=== PATIENT | female | born 1970 | race Caucasian/White ===

== ENCOUNTER 2017-04-24 09:40 | Emergency (ER) | payer MEDICAID ==
--- NOTE | 2017-04-24 10:28 | UC ---
UC General HPI - HPI Summary HPI Summary: complaint of having intermittent right" lung pain" for the last 2 months sometimes at night she feels pressure and it hurts to breathe in sometimes gets a cough- denies wheezing feels some pressure in her lung that decreases during the day lasts for several days then goes away fever of 102 last week for 2 days smoker 1PPD denies chest pain, dizziness, diaphoresis - History of Current Complaint Hx Obtained From: Patient <Lisa Gottlieb - Last Filed: 04/24/17 16:03> <Tessa Epstein - Last Filed: 04/25/17 10:22> - History of Current Complaint Chief Complaint: UCRespiratory Stated Complaint: LUNG PAIN-BEEN ONGOING Time Seen by Provider: 04/24/17 10:15 - Allergy/Home Medications Allergies/Adverse Reactions: Allergies Allergy/AdvReac Type Severity Reaction Status Date / Time CI Pigment Blue 63 Allergy SEVERE Verified 04/24/17 09:52 [From Cymbalta] SUICIDAL Duloxetine [From Cymbalta] Allergy SEVERE Verified 04/24/17 09:52 SUICIDAL Pregabalin [From Lyrica] Allergy FACIAL Verified 04/24/17 09:52 SWELLING Valproic Acid [From Depakote] Allergy CALF AREA Verified 04/24/17 09:52 SWELL & PURPLISH COLOR Home Medications: Home Medications Methadone TAB* [Dolophine TAB*] 108 mg PO DAILY 04/24/17 [History Confirmed ] PMH/Surg Hx/FS Hx/Imm Hx Previously Healthy: Yes Cardiovascular History: Hypertension Neurological History: Seizures Psychological History: Anxiety, Depression - Surgical History Surgical History: Yes Surgery Procedure, Year, and Place: C SECTION - X2, TUBAL LIGATION, GALL BLADDER 2012 - Family History Known Family History: Positive: Other - Bipolar disorder, alcoholism Negative: Cardiac Disease, Hypertension, Diabetes - Social History Occupation: Employed Full-time Lives: With Family Alcohol Use: None Substance Use Type: Heroin Substance Use Comment - Amount & Last Used: 02/11/14 Smoking Status (MU): Heavy Every Day Tobacco Smoker Type: Cigarettes Amount Used/How Often: 1 PPD Length of Time of Smoking/Using Tobacco: 32 years Have You Smoked in the Last Year: Yes Household Exposure Type: Cigarettes Cessation Counseling: Patient Advised to Stop - Immunization History Most Recent Influenza Vaccination: unable to recall Most Recent Tetanus Shot: unable to recall Most Recent Pneumonia Vaccination: N/A <BullLisa - Last Filed: 04/24/17 16:03> Review of Systems Constitutional: Fever, Chills Skin: Negative Eyes: Negative ENT: Negative Respiratory: Cough Cardiovascular: Negative Gastrointestinal: Negative Genitourinary: Negative Motor: Negative Neurovascular: Negative Musculoskeletal: Negative Neurological: Negative Psychological: Negative All Other Systems Reviewed And Are Negative: Yes <Lisa Gottlieb - Last Filed: 04/24/17 16:03> Physical Exam Triage Information Reviewed: Yes Appearance: No Pain Distress, Well-Nourished Vital Signs: Initial Vital Signs Temp 98.2 F 04/24/17 09:53 Pulse 102 04/24/17 09:53 Resp 18 04/24/17 09:53 BP 137/101 04/24/17 09:53 Pulse Ox 99 04/24/17 09:53 Vital Signs Reviewed: Yes Eyes: Positive: Conjunctiva Clear ENT: Positive: Pharynx normal, TMs normal Neck: Positive: No Lymphadenopathy Respiratory: Positive: Lungs clear, Normal breath sounds, No respiratory distress, No accessory muscle use, Respiratory distress Cardiovascular: Positive: RRR, No Murmur, Pulses Normal, Brisk Capillary Refill Abdomen Description: Positive: Nontender, No Organomegaly, Soft. Negative: CVA Tenderness (R), CVA Tenderness (L), Distended, Guarding Bowel Sounds: Positive: Present Musculoskeletal: Positive: No Edema, Other: - no chest wall tenderness Neurological Exam: Normal Psychological Exam: Normal Skin Exam: Normal <Lisa Gottlieb - Last Filed: 04/24/17 16:03> Vital Signs: Initial Vital Signs Temp 98.2 F 04/24/17 09:53 Pulse 102 04/24/17 09:53 Resp 18 04/24/17 09:53 BP 137/101 04/24/17 09:53 Pulse Ox 99 04/24/17 09:53 <Tessa Epstein - Last Filed: 04/25/17 10:22> Course/Dx - Course Course Of Treatment: exam completed. will order chest x-ray d/t cough and fever last week, smoker 1PPD- chest xray negative for acute disease. discussed smoking cessation. no risks factors for PE. will followup with PCP- if symptoms return/worsen seek care in the ED pr call 911 - Differential Dx - Multi-Symptom Differential Diagnoses: Other - pneumonia, pleural effusion, pleurisy Provider Diagnoses: right sided chest pain, elevated blood pressure <Lisa Gottlieb - Last Filed: 04/24/17 16:03> Discharge <Lisa Gottlieb - Last Filed: 04/24/17 16:03> <Tessa Epstein - Last Filed: 04/25/17 10:22> - Discharge Plan Condition: Stable Disposition: HOME Prescriptions: Ibuprofen TAB* [Motrin TAB* 800 MG] 800 mg PO Q8H PRN #30 tab PRN Reason: Pain Patient Education Materials: How to Stop Smoking (ED), Pleurisy (ED) Referrals: Jamal Schultz MD [Primary Care Provider] - Additional Instructions: Please start ibuprofen as directed Increase fluids and rest Please review your discharge instructions. If your symptoms do not improve please call your primary care provider or return to urgent care Your blood pressure is elevated. Please contact your primary care provider within 1 -4 weeks for further evaluation. Attestation Statement User Type: Provider - I was available for consult. This patient was seen by the EPIFANIO. The patient was not presented to, seen by, or examined by me. -Geni <Tessa Epstein - Last Filed: 04/25/17 10:22>
--- NOTE | 2017-04-24 10:54 | RAD ---
Indication: Right-sided chest pain. 2 views of the chest including dual energy PA views demonstrate no mediastinal shift. Heart is normal size and configuration. Lung nagel are clear. IMPRESSION: No active cardiopulmonary disease is noted.
[2017-04-24 11:26] VITALS: BP 117/83
== END 2017-04-24 11:15 | disposition home or self-care (01) ==
LOC: UCEAST 09:40
DX: R07.9 Chest pain, unspecified (principal); R03.0 Elevated blood-pressure reading, without diagnosis of hypertension; Z72.0 Tobacco use
CPT/HCPCS: 71020; 99212; G0463

== ENCOUNTER 2017-04-29 13:23 | Emergency (ER) | payer MEDICAID, OTHER ==
[2017-04-29] MEDS ORDERED: Ondansetron INJ* 2 MG/ML VIAL IV ONE (13:32)
[2017-04-29] MEDS ORDERED: NS 0.9% 1000 ML* 1,000 ML IV ONE (13:32)
[2017-04-29 14:33] LABS: Hematocrit 42 % (35-47); Hemoglobin 14.2 g/dl (12.0-16.0); Mean Corpuscular HGB Conc 34 g/dl (31-36); Mean Corpuscular Hemoglobin 31 pg (27-31); Mean Corpuscular Volume 91 fL (80-97); Mean Platelet Volume 8 um3 (7.4-10.4); Red Blood Count 4.63 10^6/ul (4.0-5.4); Red Cell Distribution Width 14 % (10.5-15)
[2017-04-29 14:45] LABS: ALT 15 U/L (7-52); AST 18 U/L (13-39); Albumin 3.4 g/dL (3.2-5.2); Alkaline Phosphatase 65 U/L (34-104); Anion Gap 5 mmol/L (2-11); BUN/Creatinine Ratio 9.1 (8-20); Blood Urea Nitrogen 8 mg/dL (6-24); CO2 Carbon Dioxide 24 mmol/L (22-32); Calcium 8.9 mg/dL (8.6-10.3); Chloride 106 mmol/L (101-111); EGFR Non-African American 69.2 (>60); Globulin 3.7 g/dL (2-4); Glucose 103 mg/dL (70-100); Potassium 3.8 mmol/L (3.5-5.0); Sodium 135 mmol/L (133-145); Total Protein 7.1 g/dL (6.4-8.9)
[2017-04-29 15:00] LABS: Acetaminophen < 15 mcg/mL; Alcohol < 10 mg/dL (<10); Salicylate < 2.50 mg/dL (<30)
[2017-04-29 15:10] LABS: TSH (Thyroid Stimulating Horm) 0.91 mcIU/mL (0.34-5.60)
[2017-04-29 15:59] LABS: Urine Bacteria Absent (Absent); Urine Bilirubin Negative (Negative); Urine Glucose Negative (Negative); Urine Nitrite Negative (Negative)
[2017-04-29 16:14] LABS: Benzodiazepine Urine Screen None Detected (None Detect)
[2017-04-29 17:01] VITALS: BP 138/80
--- NOTE | 2017-04-29 18:22 | ED ---
Eren Owens Auryana, scribed for Shelia Balbuena MD on 04/29/17 at 1501 . Substance Abuse/Use - HPI Summary HPI Summary: 46 year old female BIBElias s/p substance abuse. Patient reports that she was using what she believed was heroin with her friend, and states that she was feeling "confused" and "not feeling right" after injection. She reports that she also became worried about her friends well being - states "wanted to save her". Patient does admit to being more sad and depressed recently - she denies any SI or suicide attempt. MANUFACTURING MACHINE OPERATOR given Narcan - reports that she became sick and vomited because of it. PMHx is significant for depression and IVDA - methadone Tx. - History Of Current Complaint Chief Complaint: EDOverdose Stated Complaint: POSS OVERDOSE Time Seen by Provider: 04/29/17 13:29 Hx Last Menstrual Period: 04/13/17 Onset/Duration of Drug/ETOH Abuse: Minutes Ingestion History: Type/Name Of Drug - possibly heroin - but unsure, Amount Ingested - unk, Approximate Time Of Ingestion - unk Overdose Characteristics: IV Timing Of Abuse: Binge Use Severity Initially: Moderate Severity Currently: Moderate Character: Depressed, Other - "confused and not feeling right" Associated Signs And Symptoms: Vomiting, Other: - "confusion and not feeling right" Related Hx: Prior Drug Abuse Counseling/Admission - on methadone tx - Allergies/Home Medications Allergies/Adverse Reactions: Allergies Allergy/AdvReac Type Severity Reaction Status Date / Time CI Pigment Blue 63 Allergy SEVERE Verified 04/24/17 09:52 [From Cymbalta] SUICIDAL Duloxetine [From Cymbalta] Allergy SEVERE Verified 04/24/17 09:52 SUICIDAL Pregabalin [From Lyrica] Allergy FACIAL Verified 04/24/17 09:52 SWELLING Valproic Acid [From Depakote] Allergy CALF AREA Verified 04/24/17 09:52 SWELL & PURPLISH COLOR kaleb Allergy Difficulty Uncoded 04/29/17 16:50 Breathing PMH/Surg Hx/FS Hx/Imm Hx Endocrine/Hematology History: Denies: Hx Diabetes Cardiovascular History: Denies: Hx Hypertension, Hx Pacemaker/ICD Respiratory History: Denies: Hx Asthma History: Denies: Hx Dialysis, Hx Renal Disease Sensory History: Denies: Hx Hearing Aid Psychiatric History: Reports: Hx Eating Disorder - "not anymore", Hx Substance Abuse Denies: Hx Panic Disorder, Hx of Violent Episodes Against Others - Surgical History Surgery Procedure, Year, and Place: C SECTION - X2, TUBAL LIGATION, GALL BLADDER 2012 Infectious Disease History: Yes Infectious Disease History: Reports: Hx Hepatitis - HEP C, Hx of Known/ Suspected MRSA - nose 2009 Denies: Hx Clostridium Difficile, Hx Human Immunodeficiency Virus (HIV), Hx Shingles, Hx Tuberculosis, Hx Known/Suspected VRE, 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, History Other Infectious Disease, Traveled Outside the [place] in Last 30 Days - Family History Known Family History: Positive: Other - Bipolar disorder, alcoholism Negative: Cardiac Disease, Hypertension, Diabetes - Social History Alcohol Use: None Hx Substance Use: Yes Substance Use Type: Reports: Heroin Substance Use Comment - Amount & Last Used: 04/29/17 Hx Tobacco Use: Yes Smoking Status (MU): Heavy Every Day Tobacco Smoker Type: Cigarettes Amount Used/How Often: 1 PPD Length of Time of Smoking/Using Tobacco: 32 years Have You Smoked in the Last Year: Yes Review of Systems Positive: Other - reports "confused and not feeling right". Negative: Fever Eyes: Negative ENT: Negative Cardiovascular: Negative Respiratory: Negative Positive: Vomiting - x1 Genitourinary: Negative Musculoskeletal: Negative Skin: Negative Neurological: Negative Positive: Depressed All Other Systems Reviewed And Are Negative: Yes Physical Exam - Summary Physical Exam Summary: General: Well appearing, no pain distress. Patient is a little sleepy and has vomit on her clothing. Skin: Warm, Skin Color Reflects Adequate Perfusion, Dry Eyes: EOMI, GITA ENT: Pharynx normal, TMs normal Neck: Supple, nontender Respiratory: CTA, breath sounds present, no rhonchi, no wheezes, no rales Cardiovascular: RRR, no murmur, no rub, no gallop Abdomen: Soft, nontender, Non-distended, no guarding, no rebound Bowel: Present Musculoskeletal: CAROLYNE, No edema Neuro: Sensory/motor intact, A&Ox3, CN intact 2-12 Psych: Affect/mood appropriate. Triage Information Reviewed: Yes Vital Signs On Initial Exam: Initial Vitals Temp Pulse Resp BP Pulse Ox 97.9 F 92 16 116/64 96 04/29/17 13:39 04/29/17 13:39 04/29/17 13:39 04/29/17 13:39 04/29/17 13:39 Vital Signs Reviewed: Yes - [place] Coma Scale Coma Scale Total: 15 Diagnostics - Vital Signs Vital Signs Temp Pulse Resp BP Pulse Ox 04/29/17 14:00 82 14 117/64 95 04/29/17 13:46 97.3 F 85 16 116/64 96 04/29/17 13:45 93 18 96 04/29/17 13:44 116/64 04/29/17 13:39 97.9 F 92 16 116/64 96 - Laboratory Lab Results: Lab Results 04/29/17 04/29/17 Range/Units 14:15 14:15 WBC 11.0 H (3.5-10.8) 10^3/ul RBC 4.63 (4.0-5.4) 10^6/ul Hgb 14.2 (12.0-16.0) g/dl Hct 42 (35-47) % MCV 91 (80-97) fL MCH 31 (27-31) pg MCHC 34 (31-36) g/dl RDW 14 (10.5-15) % Plt Count 307 (150-450) 10^3/ul MPV 8 (7.4-10.4) um3 Neut % (Auto) 82.8 (38-83) % Lymph % (Auto) 8.3 L (25-47) % [place] % (Auto) 7.0 (1-9) % Eos % (Auto) 1.2 (0-6) % Baso % (Auto) 0.7 (0-2) % Absolute Neuts (auto) 9.1 H (1.5-7.7) 10^3/ul Absolute Lymphs (auto) 0.9 L (1.0-4.8) 10^3/ul Absolute Monos (auto) 0.8 (0-0.8) 10^3/ul Absolute Eos (auto) 0.1 (0-0.6) 10^3/ul Absolute Basos (auto) 0.1 (0-0.2) 10^3/ul Absolute Nucleated RBC 0 10^3/ul Nucleated RBC % 0 Sodium 135 (133-145) mmol/L Potassium 3.8 (3.5-5.0) mmol/L Chloride 106 (101-111) mmol/L Carbon Dioxide 24 (22-32) mmol/L Anion Gap 5 (2-11) mmol/L BUN 8 (6-24) mg/dL Creatinine 0.88 (0.51-0.95) mg/dL Est GFR ( Amer) 89.0 (>60) Est GFR (Non-Af Amer) 69.2 (>60) BUN/Creatinine Ratio 9.1 (8-20) Glucose 103 H (70-100) mg/dL Calcium 8.9 (8.6-10.3) mg/dL Total Bilirubin 0.20 (0.2-1.0) mg/dL AST 18 (13-39) U/L ALT 15 (7-52) U/L Alkaline Phosphatase 65 (34-104) U/L Total Protein 7.1 (6.4-8.9) g/dL Albumin 3.4 (3.2-5.2) g/dL Globulin 3.7 (2-4) g/dL Albumin/Globulin Ratio 0.9 L (1-3) TSH Pending Salicylates Pending Acetaminophen Pending Serum Alcohol Pending Result Diagrams: 04/29/17 14:15 04/29/17 14:15 Lab Statement: Any lab studies that have been ordered have been reviewed, and results considered in the medical decision making process. - EKG 14:07 EKG Interpretation: NSR @ 79 bpm Re-Evaluation - Re-Evaluation First Eval Re-Evaluation Time: 15:39 - patient is sleeping. Comment: Patient told nurse that today is the anniversary of her brothers . Course/Dx - Diagnoses Provider Diagnoses: Drug overdose - Physician Notifications Patient Is Medically Stable For: Psych Evaluation - MEDICALLY CLEAR AT 16:19 Discharge - Discharge Plan Condition: Stable Disposition: HOME Patient Education Materials: Polysubstance Abuse (ED) Referrals: No Primary Care Phys,NOPCP [Primary Care Provider] - The documentation as recorded by the Eren caal Auryana accurately reflects the service I personally performed and the decisions made by me, Shelia Balbuena MD.
== END 2017-04-29 17:50 | disposition home or self-care (01) ==
LOC: ED 13:23
DX: T65.91XA Toxic effect of unspecified substance, accidental (unintentional), initial encounter (principal); X58.XXXA Exposure to other specified factors, initial encounter; F32.9 Major depressive disorder, single episode, unspecified; Y92.9 Unspecified place or not applicable; F17.210 Nicotine dependence, cigarettes, uncomplicated
CPT/HCPCS: 36415; 80053; 80307; 80320; 80329; 81003; 81015; 84443; 85025; 87086; 93005; 96360; 99284; G0480

== ENCOUNTER 2018-03-10 09:13 | Emergency (ER) | payer OTHER ==
[2018-03-10] MEDS ORDERED: NS 0.9% 1000 ML* 1,000 ML IV ONE (10:00)
[2018-03-10 10:23] LABS: ABS Basophils 0.1 10^3/ul (0-0.2); ABS Eosinophils 0.1 10^3/ul (0-0.6); ABS Lymphocytes 1.4 10^3/ul (1.0-4.8); ABS Monocytes 0.9 10^3/ul (0-0.8); ABS Neutrophils 9.5 10^3/ul (1.5-7.7); ABS Nucleated RBC 0 10^3/ul; Eosinophil % 0.9 % (0-6); Hematocrit 47 % (35-47); Lymphocyte % 11.9 % (25-47); Mean Corpuscular HGB Conc 34 g/dl (31-36); Mean Corpuscular Hemoglobin 30 pg (27-31); Mean Corpuscular Volume 90 fL (80-97); Mean Platelet Volume 7.1 um3 (7.4-10.4); Nucleated Red Blood Cells % 0.1; Platelet Count 373 10^3/ul (150-450); Red Blood Count 5.28 10^6/ul (4.0-5.4); Red Cell Distribution Width 15 % (10.5-15)
--- NOTE | 2018-03-10 10:46 | RAD ---
INDICATION: Headaches COMPARISON: None TECHNIQUE: Noncontrast axial source images were acquired from the skull base to the vertex. FINDINGS: Ventricles/sulci: The ventricles and cisterns are normal in size and configuration for age. Brain parenchyma: There is no focal parenchymal finding, evidence of intracranial mass, or intracranial mass effect. Intracranial hemorrhage:None. Extra-axial spaces: There are no abnormal extra axial fluid collections or evidence of extra-axial mass. Calvarium: There is no calvarial fracture or other calvarial abnormality. Scalp: There is no evidence of scalp or extracalvarial soft tissue abnormality. Paranasal sinuses/mastoid: The paranasal sinuses and mastoid air cells are clear. Other: None. IMPRESSION: NEGATIVE EXAMINATION
[2018-03-10 10:56] LABS: EGFR Non-African American 60.1 (>60)
[2018-03-10] MEDS ORDERED: diPHENhydraMINE IV* 50 MG/ML 1 ml VIAL (BENADRYL) IV ONE (10:58)
[2018-03-10] MEDS ORDERED: Ketorolac INJ* 30 MG/ML 1 ML VIAL IV PUSH ONE (10:58)
[2018-03-10] MEDS ORDERED: PROCHLORPERAZINE INJ 5 MG/ML 2 ML VIAL IV ONE (11:00)
[2018-03-10 12:58] VITALS: BP 144/98
--- NOTE | 2018-03-10 17:46 | ED ---
Headache - HPI Summary HPI Summary: Patient is a 47-year-old female who presents emergency department for a headache 2 days. Patient states she feels a tight pressure sensation to her head. Pain currently is not as bad as it was yesterday. She has no history of migraine headaches. She also notes on going chronic neck pain. She denies numbness, tingling or weakness. She denies recent illness, fever. Respiratory symptoms, vomiting, abdominal pain, urinary symptoms. Does note some diarrhea. Symptoms are moderate in severity. - History Of Current Complaint Chief Complaint: EDHeadache Stated Complaint: NECK/HEADACHE Time Seen by Provider: 03/10/18 09:44 Hx Obtained From: Patient Hx Last Menstrual Period: 04/13/17 - Allergies/Home Medications Allergies/Adverse Reactions: Allergies Allergy/AdvReac Type Severity Reaction Status Date / Time divalproex sodium Allergy Swelling Verified 03/10/18 09:36 [From Depakote] duloxetine [From Cymbalta] Allergy See Comment Verified 03/10/18 09:37 kaleb Allergy Shortness Verified 03/10/18 09:36 of Breath pregabalin [From Lyrica] Allergy Anaphylatic Verified 03/10/18 09:36 Shock Home Medications: Home Medications Vilazodone (NF) [Viibryd (NF)] 40 mg PO DAILY 03/10/18 [History Confirmed ] PMH/Surg Hx/FS Hx/Imm Hx Previously Healthy: Yes Endocrine/Hematology History: Denies: Hx Diabetes Cardiovascular History: Denies: Hx Hypertension, Hx Pacemaker/ICD Respiratory History: Denies: Hx Asthma History: Denies: Hx Dialysis, Hx Renal Disease Sensory History: Denies: Hx Hearing Aid Psychiatric History: Reports: Hx Eating Disorder - "not anymore", Hx Substance Abuse Denies: Hx Panic Disorder, Hx of Violent Episodes Against Others - Surgical History Surgery Procedure, Year, and Place: C SECTION - X2, TUBAL LIGATION, GALL BLADDER 2012 Infectious Disease History: No Infectious Disease History: Reports: Hx Hepatitis - HEP C, Hx of Known/ Suspected MRSA - nose 2009 Denies: Hx Clostridium Difficile, Hx Human Immunodeficiency Virus (HIV), Hx Shingles, Hx Tuberculosis, Hx Known/Suspected VRE, 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, History Other Infectious Disease, Traveled Outside the [place] in Last 30 Days - Family History Known Family History: Positive: Other - Bipolar disorder, alcoholism Negative: Cardiac Disease, Hypertension, Diabetes - Social History Alcohol Use: None Hx Substance Use: Yes Substance Use Type: Reports: Heroin Substance Use Comment - Amount & Last Used: 04/29/17 Hx Tobacco Use: Yes Smoking Status (MU): Heavy Every Day Tobacco Smoker Type: Cigarettes Amount Used/How Often: 1 PPD Length of Time of Smoking/Using Tobacco: 32 years Have You Smoked in the Last Year: Yes Review of Systems Constitutional: Negative Negative: Fever, Chills Eyes: Negative ENT: Negative Cardiovascular: Negative Negative: Palpitations, Chest Pain Respiratory: Negative Negative: Shortness Of Breath, Cough Gastrointestinal: Negative Positive: Diarrhea. Negative: Abdominal Pain, Vomiting, Nausea Genitourinary: Negative Positive: Other - Chronic neck pain Skin: Negative Positive: Headache. Negative: Weakness, Paresthesia, Numbness, Syncope Psychological: Normal All Other Systems Reviewed And Are Negative: Yes Physical Exam Triage Information Reviewed: Yes Vital Signs On Initial Exam: Initial Vitals Temp Pulse Resp BP Pulse Ox 97.2 F 93 19 135/89 97 03/10/18 09:30 03/10/18 09:30 03/10/18 09:30 03/10/18 09:30 03/10/18 09:30 Vital Signs Reviewed: Yes Appearance: Positive: Well-Appearing - Patient sitting up in bed in no acute distress. Talkative. Skin: Positive: Warm, Dry Head/Face: Positive: Normal Head/Face Inspection Eyes: Positive: Normal, EOMI, GITA, Conjunctiva Clear Neck: Positive: Supple, Nontender. Negative: Nuchal Rigidity Respiratory/Lung Sounds: Positive: Clear to Auscultation, Breath Sounds Present Cardiovascular: Positive: Normal, RRR Musculoskeletal: Positive: Normal, Strength/ROM Intact Neurological: Positive: Normal, CN Intact II-III, Speech Normal. Negative: Facial Droop, Slurred Speech Psychiatric: Positive: Affect/Mood Appropriate Diagnostics - Vital Signs Vital Signs Temp Pulse Resp BP Pulse Ox 03/10/18 12:57 97.8 F 68 20 144/98 96 03/10/18 12:50 66 144/94 90 03/10/18 12:20 68 136/89 89 03/10/18 12:00 69 91 03/10/18 11:50 69 139/96 92 03/10/18 11:20 72 134/100 96 03/10/18 11:19 72 96 03/10/18 10:21 76 96 03/10/18 10:20 73 143/92 95 03/10/18 09:30 97.2 F 93 19 135/89 97 - Laboratory Lab Results: Lab Results 03/10/18 03/10/18 Range/Units 10:13 10:13 WBC 12.0 H (3.5-10.8) 10^3/ul RBC 5.28 (4.0-5.4) 10^6/ul Hgb 16.0 (12.0-16.0) g/dl Hct 47 (35-47) % MCV 90 (80-97) fL MCH 30 (27-31) pg MCHC 34 (31-36) g/dl RDW 15 (10.5-15) % Plt Count 373 (150-450) 10^3/ul MPV 7.1 L (7.4-10.4) um3 Neut % (Auto) 79.2 (38-83) % Lymph % (Auto) 11.9 L (25-47) % [place] % (Auto) 7.4 H (0-7) % Eos % (Auto) 0.9 (0-6) % Baso % (Auto) 0.6 (0-2) % Absolute Neuts (auto) 9.5 H (1.5-7.7) 10^3/ul Absolute Lymphs (auto) 1.4 (1.0-4.8) 10^3/ul Absolute Monos (auto) 0.9 H (0-0.8) 10^3/ul Absolute Eos (auto) 0.1 (0-0.6) 10^3/ul Absolute Basos (auto) 0.1 (0-0.2) 10^3/ul Absolute Nucleated RBC 0 10^3/ul Nucleated RBC % 0.1 Sodium 138 L (139-145) mmol/L Potassium 3.7 (3.5-5.0) mmol/L Chloride 110 (101-111) mmol/L Carbon Dioxide 22 (22-32) mmol/L Anion Gap 6 (2-11) mmol/L BUN 14 (6-24) mg/dL Creatinine 0.99 H (0.51-0.95) mg/dL Est GFR ( Amer) 77.3 (>60) Est GFR (Non-Af Amer) 60.1 (>60) BUN/Creatinine Ratio 14.1 (8-20) Glucose 93 (70-100) mg/dL Calcium 9.4 (8.6-10.3) mg/dL Magnesium 2.1 (1.9-2.7) mg/dL Total Bilirubin 0.30 (0.2-1.0) mg/dL AST 17 (13-39) U/L ALT 15 (7-52) U/L Alkaline Phosphatase 88 (34-104) U/L Total Protein 8.0 (6.4-8.9) g/dL Albumin 4.1 (3.2-5.2) g/dL Globulin 3.9 (2-4) g/dL Albumin/Globulin Ratio 1.1 (1-3) Result Diagrams: 03/10/18 10:13 03/10/18 10:13 Lab Statement: Any lab studies that have been ordered have been reviewed, and results considered in the medical decision making process. Headache Course/Dx - Course Course Of Treatment: Patient presenting with headache 2 days. Headache is abnormal for patient. She has no neurological deficits. We'll obtain blood work and head CT given his symptoms. IV fluids were started. CT scan of the brain is negative for acute findings. Blood work is unremarkable. Pending Lyme titer. We'll try migraine cocktail consisting of Toradol, and Benadryl. On reexamination patient sleeping comfortably and headache is improved. We'll discharge home at this time. Recommend close follow-up with PCP. To return to the ER symptoms change or worsen. - Diagnoses Differential Diagnosis/HQI/PQRI: CVA, Migraine, Sinus Headache, Tension Headache , Viral Syndrome Provider Diagnoses: Cephalgia Discharge - Sign-Out/Discharge Documenting (check all that apply): Discharge/Admit/Transfer - Discharge Plan Condition: Good Disposition: HOME Patient Education Materials: Acute Headache (ED) Referrals: Jamal Schultz MD [Primary Care Provider] - Additional Instructions: Call your PCP today to schedule as appointment Can take tylenol or motrin for pain as directed Return to ER if symptoms change or worsen - Billing Disposition and Condition Condition: GOOD Disposition: HOME
== END 2018-03-10 12:57 | disposition home or self-care (01) ==
LOC: ED 09:13
DX: R51 Headache (principal); F17.210 Nicotine dependence, cigarettes, uncomplicated
CPT/HCPCS: 36415; 70450; 80053; 83735; 85025; 86617; 96360; 96374; 96375; 99282; J0780; J1200; J1885

== ENCOUNTER 2018-08-18 19:07 | Inpatient (IN) | payer OTHER ==
[~2018-08-18 19:07] MED LIST: Morphine INJ* 2 MG/ML 1 ML SYRINGE (TWO MG - NEW SYRINGE VERSION) IV PRN
--- NOTE | 2018-08-18 19:43 | ED ---
Skin Complaint - HPI Summary HPI Summary: This pt is a 48 y/o female presenting to [facility] c/o bilateral leg open wounds and left leg with redness, warmth, and swelling. Pt reports that she was hospitalized at [facility] for pneumonia and surgery for open wounds on left leg over 1 month ago. She states that she had surgery on her right leg for open wounds about 1 week ago. Pt was told she had sepsis and it "blew through her skin." She was discharged on 08/12/18 and has a follow up appointment with their wound clinic on 08/26. Pt was placed on antibiotics for 4 days after discharge, which she has already finished. Today she went to see her PCP, Dr. Schultz, for a follow up and he referred her to the ED. Pt states she does not feel well and ambulates with a walker secondary to pain on left leg. She notes it is painful to step with left leg. Denies fever, chills, chest pain, SOB. Pt admits to tobacco use. Denies drug or alcohol use. She is currently on gabapentin, methadone, and viibryd. Pt has been clean for 2 years. - History of Current Complaint Chief Complaint: EDExtremityLower Time Seen by Provider: 08/18/18 19:29 Stated Complaint: PAIN IN LEGS Hx Obtained From: Patient Hx Last Menstrual Period: 04/13/17 Onset/Duration: Started Days Ago, Still Present Skin Exposure Onset/Duration: Days Ago Timing: Lasting Days Current Severity: Severe Pain Intensity: 7 Pain Scale Used: 0-10 Numeric Skin Location: Leg - bilateral Character: Swelling, Pain, Redness Aggravating Symptom(s): Nothing Alleviating Symptom(s): Nothing Associated Signs & Symptoms: Negative - Allergy/Home Medications Allergies/Adverse Reactions: Allergies Allergy/AdvReac Type Severity Reaction Status Date / Time divalproex sodium Allergy Swelling Verified 03/10/18 09:36 [From Depakote] duloxetine [From Cymbalta] Allergy See Comment Verified 03/10/18 09:37 kaleb Allergy Shortness Verified 03/10/18 09:36 of Breath pregabalin [From Lyrica] Allergy Anaphylatic Verified 03/10/18 09:36 Shock PMH/Surg Hx/FS Hx/Imm Hx Endocrine/Hematology History: Denies: Hx Diabetes Cardiovascular History: Denies: Hx Hypertension, Hx Pacemaker/ICD Respiratory History: Denies: Hx Asthma History: Denies: Hx Dialysis, Hx Renal Disease Sensory History: Denies: Hx Hearing Aid Psychiatric History: Reports: Hx Eating Disorder - "not anymore", Hx Substance Abuse Denies: Hx Panic Disorder, Hx of Violent Episodes Against Others - Surgical History Surgery Procedure, Year, and Place: C SECTION - X2, TUBAL LIGATION, GALL BLADDER 2013 Infectious Disease History: Yes Infectious Disease History: Reports: Hx Hepatitis - HEP C, Hx of Known/ Suspected MRSA - nose 2009 Denies: Hx Clostridium Difficile, Hx Human Immunodeficiency Virus (HIV), Hx Shingles, Hx Tuberculosis, Hx Known/Suspected VRE, 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, History Other Infectious Disease, Traveled Outside the [place] in Last 30 Days - Family History Known Family History: Positive: Other - Bipolar disorder, alcoholism Negative: Cardiac Disease, Hypertension, Diabetes - Social History Alcohol Use: None Substance Use Type: Reports: None, Heroin - former Substance Use Comment - Amount & Last Used: 04/29/17 Hx Tobacco Use: Yes Smoking Status (MU): Heavy Every Day Tobacco Smoker Type: Cigarettes Amount Used/How Often: 1 PPD Length of Time of Smoking/Using Tobacco: 32 years Have You Smoked in the Last Year: Yes Review of Systems Negative: Fever, Chills Negative: Chest Pain Negative: Shortness Of Breath Positive: Edema - on left leg Skin: Other - open wounds on bilateral legs, redness and warmth on left leg All Other Systems Reviewed And Are Negative: Yes Physical Exam - Summary Physical Exam Summary: VITAL SIGNS: Reviewed. GENERAL: Patient is a well-developed and nourished female who is lying comfortable in the stretcher. Patient is not in any acute respiratory distress. HEAD AND FACE: No signs of trauma. No ecchymosis, hematomas or skull depressions. No sinus tenderness. EYES: PERRLA, EOMI x 2, No injected conjunctiva, no nystagmus. EARS: Hearing grossly intact. Ear canals and tympanic membranes are within normal limits. MOUTH: Oropharynx within normal limits. NECK: Supple, trachea is midline, no adenopathy, no JVD, no carotid bruit, no c- spine tenderness, neck with full ROM. CHEST: Symmetric, no tenderness at palpation LUNGS: Clear to auscultation bilaterally. No wheezing or crackles. CVS: Regular rate and rhythm, S1 and S2 present, no murmurs or gallops appreciated. ABDOMEN: Soft, non-tender. No signs of distention. No rebound no guarding, and no masses palpated. Bowel sounds are normal. EXTREMITIES: FROM in all major joints, no cyanosis or clubbing. NEURO: Alert and oriented x 3. No acute neurological deficits. Speech is normal and follows commands. SKIN: Pt has two large healing ulcers. One on the left thigh. One on the left leg. One on the right thigh. Swelling, redness, and warmth on the left leg. Vesicular type rash over both legs. Triage Information Reviewed: Yes Vital Signs On Initial Exam: Initial Vitals Temp Pulse Resp BP Pulse Ox 97.4 F 76 16 107/65 98 08/18/18 19:11 08/18/18 19:11 08/18/18 19:11 08/18/18 19:11 08/18/18 19:11 Vital Signs Reviewed: Yes Diagnostics - Vital Signs Vital Signs Temp Pulse Resp BP Pulse Ox 08/18/18 19:11 97.4 F 76 16 107/65 98 - Laboratory Result Diagrams: 08/18/18 21:15 08/18/18 21:15 Lab Statement: Any lab studies that have been ordered have been reviewed, and results considered in the medical decision making process. - Radiology Chest XR Radiology Interpretation Completed By: ED Physician Summary of Radiographic Findings: No acute process. Pending official radiology report. - Additional Comments Diagnostic Additional Comments: Venous Doppler Study, Left Lower Extremity (as read by radiologist) IMPRESSION: No acute findings. No evidence of deep vein thrombosis. Dr. Toth has reviewed this report. Course/Dx - Course Assessment/Plan: Pt is a 48 y/o female, with hx of bilateral leg sepsis, who presents to the ED for bilateral leg open wounds and left leg with redness, warmth, and swelling. Pt reports that she was hospitalized at [facility] for pneumonia and surgery for open wounds on left leg over 1 month ago. She states that she had surgery on her right leg for open wounds about 1 week ago. She was discharged on 08/12/18 and has a follow up appointment with their wound clinic on 08/26. Pt was placed on antibiotics for 4 days after discharge, which she has already finished. Denies fever, chills. Test results show hemoglobin of 10.3, hematocrit of 31, platelet count of 566, creatinine of 1.78, CRP of 68.72. US of left lower extremity is negative for DVT. In the ED course the pt was given IV fluids, Toradol, and Vancomycin. I discussed the case with BETTY Iqbal from the hospitalist services, and he accepted the pt for admission. - Diagnoses Provider Diagnoses: Cellulitis of left lower extremity - Physician Notifications Discussed Care Of Patient With: Dawit HERNÁNDEZ from the hospitalist services Time Discussed With Above Provider: 22:44 Instructed by Provider To: Admit As Inpatient Discharge - Sign-Out/Discharge Documenting (check all that apply): Patient Departure - Admit to [facility] [place] - Discharge Plan Condition: Stable Disposition: ADMITTED TO [facility] Referrals: Jamal Schultz MD [Primary Care Provider] - - Attestation Statements Document Initiated by Scribe: Yes Documenting Scribe: Sharee Lowery Provider For Whom Scribe is Documenting (Include Credential): Giselle Toth MD Scribe Attestation: Sharee Owens, scribed for Giselle Toth MD on 08/18/18 at [id number].
[2018-08-18] MEDS ORDERED: NS 0.9% 1000 ML*IV.FLUID IV ONE (19:45)
[2018-08-18] MEDS ORDERED: Vancomycin(*) 1,500 MG in NS 0.9% 250 ML* 250 ML IVPB ONE (19:46)
[2018-08-18] MEDS ORDERED: NS 0.9% 250 ML* 250 ML ONE (21:17)
[2018-08-18] MEDS ORDERED: Ketorolac INJ* 30 MG/ML 1 ML VIAL IV PUSH ONE (21:19)
[2018-08-18 21:24] LABS: ABS Basophils 0 10^3/ul (0-0.2); ABS Eosinophils 0.3 10^3/ul (0-0.6); ABS Lymphocytes 1.3 10^3/ul (1.0-4.8); ABS Monocytes 0.4 10^3/ul (0-0.8); ABS Neutrophils 3.7 10^3/ul (1.5-7.7); ABS Nucleated RBC 0 10^3/ul; Eosinophil % 6.1 % (0-6); Hematocrit 31 % (35-47); Hemoglobin 10.3 g/dl (12.0-16.0); Lymphocyte % 22.4 % (25-47); Mean Corpuscular HGB Conc 33 g/dl (31-36); Mean Corpuscular Hemoglobin 28 pg (27-31); Mean Corpuscular Volume 86 fL (80-97); Mean Platelet Volume 6.3 fL (7.4-10.4); Nucleated Red Blood Cells % 0.2; Platelet Count 566 10^3/ul (150-450); Red Blood Count 3.65 10^6/ul (4.00-5.40); Red Cell Distribution Width 18 % (10.5-15); White Blood Count 5.7 10^3/ul (3.5-10.8)
[2018-08-18 21:33] LABS: INR 0.94 (0.77-1.02)
[2018-08-18 21:38] LABS: Albumin 2.6 g/dL (3.2-5.2); Albumin/Globulin Ratio 0.5 (1-3); BUN/Creatinine Ratio 6.7 (8-20); C Reactive Protein 68.72 mg/L (<8.01); Calcium 8.6 mg/dL (8.6-10.3); EGFR Non-African American 30.4 (>60); Globulin 5.3 g/dL (2-4); Potassium 4.1 mmol/L (3.5-5.0); Total Bilirubin 0.3 mg/dL (0.2-1.0); Total Protein 7.9 g/dL (6.4-8.9)
[2018-08-18] MEDS ORDERED: Acetaminophen TAB* 325 MG PO PRN (23:43)
[2018-08-18] MEDS ORDERED: Ondansetron INJ* 2 MG/ML VIAL IV PRN (23:43)
[2018-08-18] MEDS ORDERED: Vancomycin(*) 1,000 MG in NS 0.9% 250 ML* 250 ML IVPB SCH (23:44)
[2018-08-18] MEDS ORDERED: Cefepime 2 GM in Dextrose(*) 2 GM/50 ML BAG IV SCH (23:45)
[2018-08-18] MEDS ORDERED: Vancomycin per Pharmacy* NOTE FOLLOW UP SCH (23:45)
[2018-08-19 00:57] LABS: Erythrocyte Sed Rate 117 mm/Hr (0-14)
[2018-08-19] MEDS ORDERED: Ziprasidone IM INJ* 20 MG/ML VIAL IM ONE ×2 (02:12→03:00)
[2018-08-19] MEDS ORDERED: LORazepam INJ* 2 MG/ML 1 ML VIAL IM STA (02:28)
[2018-08-19] MEDS ORDERED: CEFEPIME 1 GM IM SCH (03:00)
[2018-08-19] MEDS ORDERED: LORazepam INJ* 2 MG/ML 1 ML VIAL SCH (03:00)
[2018-08-19] MEDS ORDERED: Morphine VIAL* 4 MG/ML VIAL (1 ml vial) IV PRN (03:15)
[2018-08-19] MEDS ORDERED: Morphine INJ* 2 MG/ML 1 ML SYRINGE (TWO MG - NEW SYRINGE VERSION) IM PRN (03:44)
[2018-08-19] MEDS: Heparin VIAL(*) 5000 UNITS/ML VIAL (FIVE THOUSAND) SUBCUT SCH ×3 (05:45→20:29)
[2018-08-19 06:13] LABS: Urine Appearance Cloudy; Urine Bacteria Absent (Absent); Urine Bilirubin Negative (Negative); Urine Blood 1+ (Negative); Urine Color Yellow; Urine Glucose Negative (Negative); Urine Ketones Negative (Negative); Urine Nitrite Negative (Negative); Urine Protein Negative (Negative); Urine Red Blood Cell 2+(6-10/hpf) (Absent); Urine Specific Gravity 1.013 (1.010-1.030); Urine Urobilinogen Negative (Negative); Urine White Blood Cell 1+(6-10/hpf) (Absent)
[2018-08-19 06:35] LABS: Urine Creatinine Concentration 111.38 mg/dL
[2018-08-19 06:52] LABS: ABS Basophils 0 10^3/ul (0-0.2); ABS Eosinophils 0.4 10^3/ul (0-0.6); ABS Lymphocytes 0.8 10^3/ul (1.0-4.8); ABS Monocytes 0.3 10^3/ul (0-0.8); ABS Neutrophils 2.7 10^3/ul (1.5-7.7); ABS Nucleated RBC 0 10^3/ul; Eosinophil % 9.6 % (0-6); Hematocrit 29 % (35-47); Hemoglobin 9.7 g/dl (12.0-16.0); Lymphocyte % 18.4 % (25-47); Mean Corpuscular HGB Conc 33 g/dl (31-36); Mean Corpuscular Hemoglobin 28 pg (27-31); Mean Corpuscular Volume 86 fL (80-97); Mean Platelet Volume 6.1 fL (7.4-10.4); Nucleated Red Blood Cells % 0; Platelet Count 516 10^3/ul (150-450); Red Blood Count 3.42 10^6/ul (4.00-5.40); Red Cell Distribution Width 18 % (10.5-15); White Blood Count 4.2 10^3/ul (3.5-10.8)
[2018-08-19 06:58] LABS: INR 0.9 (0.77-1.02)
[2018-08-19 07:03] LABS: Calcium 8.2 mg/dL (8.6-10.3); Potassium 3.8 mmol/L (3.5-5.0)
[2018-08-19 07:09] LABS: BUN/Creatinine Ratio 6.5 (8-20); EGFR Non-African American 36.2 (>60)
[2018-08-19] MEDS ORDERED: Gabapentin CAP(*) 400 MG PO SCH (09:00)
[2018-08-19] MEDS ORDERED: Perflutren Lipid Microsphere* 3 ML VIAL ONE (10:19)
--- NOTE | 2018-08-19 10:19 | HP ---
AMENDED REPORT NOW INCLUDES DESIGNATED COSIGNER CC: Dr. Schultz * HISTORY AND PHYSICAL: DATE OF ADMISSION: 08/18/18 PRIMARY CARE PROVIDER: Dr. Schultz. ATTENDING PHYSICIAN WHILE IN THE HOSPITAL: Yesenia Plunkett MD * (report dictated by Dawit Cobb NP.) CHIEF COMPLAINT: Left lower extremity erythema, wounds and swelling. HISTORY OF PRESENTING ILLNESS: Ms. Platt is a 48-year-old female patient with a history of depression, fibromyalgia, borderline personality disorder, history of substance abuse in the past. She is on methadone currently. She says that about 6 weeks ago, she was admitted over at [facility]. She started noting a wound to her right leg that had a black center. Then she started noticing similar wounds develop to her left leg too. She was concerned because they were getting red, formed, the center of them were becoming black. She went to [facility]. She states she was there for about a month. They did a debridement of necrotic tissue. She was placed on antibiotics. She is not sure what the infection actually was, but they started healing. She was discharged after being there, she says, for 4 weeks. I am trying to get records. Then she started noticing that the right wound that was not addressed was getting worse. It was again noted to have necrotic tissue. There was worsening swelling and pain. She was concerned and went back to [facility], and this was last week. She was there for 4 to 5 days. She again underwent surgery, had that wound debrided. She was discharged home on 4 days of antibiotics, she says. She went to her primary and she noted today and yesterday that the left leg where there are 2 wounds, 1 near her groin and another 1 just on the posterior portion of her calf that she was concerned because the leg started getting red and she was concerned because she was noticing that the leg was hot, warm, swollen and edematous. She was being seen at Dr. Schultz's office. He was concerned for possible recurrent infection and she was sent to the hospital for IV antibiotic therapy. She states that the pain is not excruciating. She said it was just uncomfortable because of the swelling. She denied having any fevers or chills. She denied any drainage. She states she has been having some serous drainage and she has been having wet to dry dressing changes on these wounds twice a day by her friend. She denies having any other wounds. She says it has been mostly in her legs. She has 1 on her right calf and 2 on her right lower extremity, 1 again in the groin and 1 in the right lower extremity was skin ulceration. She says that she has not noticed any purulent discharge, but the left leg again was starting to get red. There has been no chest pain. No vomiting. No abdominal pain. No shortness of breath. No URI-type symptoms. She came into the ED today. There was concern for possible cellulitis and we were asked to evaluate for admission. PAST MEDICAL HISTORY: Significant for: 1. History of IV drug use. She states she has not used in several years. 2. She has a history of depression. 3. Fibromyalgia. 4. Borderline personality disorder. PAST SURGICAL HISTORY: She has had debridement to the left lower extremity and to right lower extremity. She has had 2 C-sections and a cholecystectomy. HOME MEDICATIONS: Include: 1. Viibryd 40 mg daily. 2. Methadone 128 mg daily. 3. Gabapentin 800 mg p.o. t.i.d. ALLERGIES: Her allergies to medications include DEPAKOTE, CYMBALTA, LYRICA and ERIK. FAMILY HISTORY: She states her mother is alive and well. She does not have any medical trouble with the exception of gallbladder disease. Her father is unknown. SOCIAL HISTORY: She has a former history of IV drug use. She does smoke a pack of cigarettes a day. She does admit to history of, again, IV drug use. Surrogate decision maker is her friend, Stacy. REVIEW OF SYSTEMS: There is no documented fever. She is denying any significant weight change to me. There is no double vision. She denied having any ear discharge. There is no rhinorrhea. There is no sore throat. No thyroid enlargement. She denied having any chest pain. There is no orthopnea. There is no nocturnal dyspnea. There was no abdominal pain. No nausea, no vomiting, no dysuria, no frequency. There are skin ulcerations. Review of 14 systems was completed, all others negative. PHYSICAL EXAMINATION GENERAL: At this time, Ms. Platt is a 48-year-old female patient. She is sitting in the ED stretcher. She does not appear to be in any acute distress. She appears to be well nourished and well developed. VITAL SIGNS: Blood pressure 145/75, pulse 75, respirations 18, O2 sat 94%, temperature 97.4. HEENT: Head is atraumatic and normocephalic. Eyes: EOMs are intact. Her sclerae were anicteric and not pale. Throat: Oral mucosa appears to be moist. No oropharyngeal erythema. NECK: Supple. LUNGS: Clear to auscultation bilaterally. No wheezes, rales or rhonchi. HEART: Sounds S1, S2. She had a regular rate and rhythm. There were no murmurs, rubs or gallops. ABDOMEN: Soft. It was flat. It was nontender. The bowel sounds were present. EXTREMITIES: Lower extremities, she had 5/5 strength. She did have +2 pitting edema to the left lower extremity starting from the top of her foot going up to her calf. Pulses were palpable. She had 5/5 strength. There was erythema starting from the left foot, extending up into her left groin. NEUROLOGIC: She is awake. She is alert. She is oriented x3. She has no gross focal deficits. SKIN: She has a large wound to her right lower extremity which measures 11.5 cm x 9 cm x 0.5 cm with a good granulation tissue to the base. She also had a wound to the back side of her left calf, which measured 14 cm x 15 x 0.75 cm, again with good granulation tissue at the base. She had a left lower anterior wound which was 2. 5 x 2 cm x 0.2 cm, was a dry wound. She had a wound to the groin which is 10.5 cm x 5 cm x 1 cm, again with good granulation tissue. Otherwise, her skin was intact. She did have an area of dry plaque-type erythematous lesion to the back of her right elbow. LABORATORY DATA/DIAGNOSTIC STUDIES: Her labs today revealed WBC of 5.7, RBC of 3.65, hemoglobin of 10.3, hematocrit of 31, platelet count of 566,000. ESR pending. INR 0.94. PTT was 29. Sodium was 139, potassium was 4.1, chloride 109, bicarb 23. BUN 12; creatinine of 1.78, her baseline is right around 1. Glucose is 77, lactic 0.7, calcium 8.6. Total bili 0.3, AST 20, ALT 7, alk phos 96. CK is pending. Her CRP was 68.72. Albumin was 2.6. She had a venous Doppler study obtained today, which showed no acute findings. No evidence of DVT. No acute infiltrates were noted on today's chest x-ray. Old medical records were reviewed. ASSESSMENT AND PLAN: Ms. Platt is a 48-year-old female patient coming into the ED today with complaints of left lower extremity erythema and pain. On evaluation [facility], there was concern for cellulitis and she will be admitted under inpatient status for: 1. Cellulitis with associated bilateral lower extremity wounds. She is not exhibiting signs of sepsis. Her CK is normal and when I was palpating the legs , she was not in exquisite pain. I did not feel any crepitus. I am going to get a CT of the leg given the extent of the wounds, particularly on the left side. She is hemodynamically stable. I do not think this is necrotizing fasciitis because again, it is not exquisitely tender. She is not in any exquisite pain. I am going to have Surgery see the patient. I did touch base with the surgeon chief communications officer [facility]. We will get the wound care surgeon in to see the patient tomorrow. We also will get ID involved. I am going to get records from [facility] and [facility] to see what had transpired there. We will put her on broad-spectrum antibiotics. She has been astudillo cultured, will elevate the extremity and will do b.i.d. wound dressings. She is going to need long-term wound care followup with possible skin grafting, but again I will have Surgery evaluate from their standpoint and will get the wound care clinic involved. 2. History of depression. Continue meds as prescribed. 3. Fibromyalgia. Continue her Viibryd. 4. History of borderline personality disorder. Continue supportive care. 5. History of IV drug use. Continue meds as prescribed. 6. Acute renal failure. Etiology is unclear. I will bladder scan her and in addition to this, I will send off a FeNa, will hydrate the patient, will check a UA and will repeat the labs in the morning. 7. Fluid, electrolytes and nutrition. She can have regular diet. 8. Code status: Full code. TIME SPENT: Time spent on admission was 60 minutes, greater than half time spent [id number] with the patient, obtaining my history and physical, the other half time was spent going over the plan of care with the patient and implementing the plan of care. I did discuss the plan of care with my attending, Dr. Plunkett. I also asked Dr. Plunkett to evaluate the patient and to evaluate the wounds. She was in agreement. Time spent on the admission, again, is 60 minutes. DAWIT COBB NP [id number]/CPS #: [id number] GORGE
[2018-08-19] MEDS: Methadone TAB* 5 MG PO SCH (10:58)
[2018-08-19] MEDS: Methadone TAB* 10 MG PO SCH (10:59)
[2018-08-19] MEDS: CMC:Vilazodone (NF) 40 MG TAB PO SCH (10:59)
[2018-08-19] MEDS: Gabapentin CAP(*) 400 MG PO SCH ×2 (10:59→19:50)
[2018-08-19] MEDS ORDERED: NS 0.9% 1000 ML* 1,000 ML IV SCH (11:15)
--- NOTE | 2018-08-19 11:18 | ECHO ---
Patient: TAMELA LEMUS [facility] Rec#: [id number] : 1970 Date: 08/19/2018 Age: 48y Height: 170 cm / 66.9 in Weight: 67.13 kg / 148.0 lbs Sex: F BSA: 1.78 Room#: [facility] Admit Date#: 08/19/2018 Type: Inpatient Referring: Jesus Bynum MD Reading: Naveed Hahn MD Button Machine Operator: Melanie Perez RDCS CC: Jamal Schultz MD Transthoracic Echocardiogram Indication: Edema BP: 99/53 HR: 71 Rhythm: NSR with PVCs Findings History: Smoker, hep. C.No prior [facility] echoPt unable to follow commands or lay on left side TOO PAINFUL Technical Comments: The study quality is fair. The study is technically limited due to poor apical windows. Completed at 1100. Left Ventricle: The left ventricular chamber size is normal. There is no left ventricular hypertrophy. Occasional distal apico-septal wall motion noted. This is a non-specific finding. Global left ventricular wall motion and contractility are within normal limits. There is normal left ventricular systolic function. The estimated ejection fraction is 55-60%. Abnormal left ventricular diastolic function is observed. Left Atrium: The left atrial chamber size is normal. Right Ventricle: The right ventricular cavity size is normal. The right ventricular global systolic function is normal. Right Atrium: The right atrial cavity size is normal. Aortic Valve: The aortic valve is trileaflet. There is no evidence of aortic valve thickening. There is no evidence of aortic regurgitation. There is no evidence of aortic stenosis. Mitral Valve: The mitral valve leaflets appear normal. There is a trace of mitral regurgitation. Tricuspid Valve: The tricuspid valve leaflets are normal. There is a physiologic tricuspid regurgitation. Unable to estimate the right ventricular systolic pressure. Pulmonic Valve: The pulmonic valve appears normal. There is a trace pulmonic regurgitation. There is no pulmonic stenosis. Pericardium: There is no significant pericardial effusion. Aorta: There is no dilatation of the ascending aorta. The aortic root is normal in size. Pulmonary Artery: The main pulmonary artery appears normal. Venous: The inferior vena cava appears normal in size. There is a greater than 50% respiratory change in the inferior vena cava dimension. Contrast: Definity was used to optimize study. 4 mL of diluted Definity were utilized. Intravenous contrast was used to enhance endocardial border definition. Conclusions There is normal left ventricular systolic function. The estimated ejection fraction is 55-60%. Global left ventricular wall motion and contractility are within normal limits. Normal cardiac chamber sizes. Functionally benign heart valves. There is no prior echocardiogram available to compare with at this time. Measurements Name Value Normal Range RVIDd (AP) 2D 3.4 cm (0.9 - 2.6) RAd ISD 4CH 4.7 cm (3.4 - 4.9) RA (A4C)W 4.3 cm (2.9 - 4.6) IVSd (2D) 1 cm (0.6 - 1) LVPWd (2D) 0.8 cm (0.6 - 1) LVIDd (2D) 4.8 cm (3.6 - 5.4) LVIDs (2D) 4 cm - LV FS (2D) 29 % (25 - 45) Aortic Annulus 2.1 cm (1.4 - 2.6) Ao root diameter (2D) 3 cm (2.1 - 3.5) Ascending Ao 3.1 cm (2.1 - 3.4) Aortic arch 1.8 cm (1.8 - 3.4) LA dimension (AP) 2D 3.4 cm (2.3 - 3.8) LA ISD 4CH W 3.9 cm (2.5 - 4.5) Name Value Normal Range LA ESV BP (A/L) index 30 ml/m2 - Name Value Normal Range MV E-wave Vmax 0.5 m/sec - MV deceleration time 310 msec - MV A-wave Vmax 0.7 m/sec - MV E:A ratio 0.7 ratio - LV septal e' Vmax 0.05 m/sec - LV lateral e' Vmax 0.08 m/sec - LV E:e' septal ratio 10 ratio - LV E:e' lateral ratio 6.25 ratio - Name Value Normal Range AV Vmax 1.2 m/sec - AV VTI 21.5 cm - AV peak gradient 5 mmHg - AV mean gradient 2 mmHg - LVOT Vmax 0.9 m/sec - LVOT VTI 16.1 cm - LVOT peak gradient 3 mmHg - LVOT mean gradient 2 mmHg - MARIBEL Vmax 0.8 m/sec - Name Value Normal Range IVC diameter 1.3 cm - Name Value Normal Range PV Vmax 0.9 m/sec - PV peak gradient 3 mmHg -
[2018-08-19] MEDS: Morphine INJ* 2 MG/ML 1 ML SYRINGE (TWO MG - NEW SYRINGE VERSION) IV PRN ×2 (11:40→16:06)
--- NOTE | 2018-08-19 14:34 | CONS ---
CONSULTATION REPORT: DATE OF CONSULT: 08/19/18 REQUESTING PHYSICIAN: Dawit Cobb NP CONSULTING SERVICE: Infectious Disease. REASON FOR CONSULT: Cellulitis. IMPRESSION: 1. Bilateral chronic nonhealing leg ulcers in the setting of recent onset of bilateral lower extremity edema. The differential diagnosis includes venous stasis ulceration versus pyoderma gangrenosum. They are complicated by cellulitis right now. 2. Recent onset of lower extremity edema. Question venous insufficiency versus right heart failure. 3. Chronic methadone maintenance therapy. 4. Elevated C-reactive protein due to cellulitis of right leg associated with the ulceration. RECOMMENDATION: Stop vancomycin and continue cefepime, check an echocardiogram to look for pulmonary hypertension, right heart failure if that is negative. Skin biopsy to evaluate for pyoderma gangrenosum. HISTORY OF PRESENT ILLNESS: This is a 40-year-old woman with chronic leg ulceration for the last few months. She has been followed at [facility] where she was admitted for debridement of these wounds recently. She follows up with her primary doctor, Dr. Schultz, who referred her here because she was suffering from malaise, fatigue, and progression of this ulceration associated with cellulitis. She was seen in the emergency room last night. White count was normal. CRP was 70. Urinalysis showed white cells. Chest x-ray showed atelectasis, possible lower lobe infiltrates. She was then treated for pneumonia at [facility]. She has had no cough, trouble breathing, or shortness of breath. She has noticed swelling of her legs for the last few months without any precipitating cause. She has no chest pain or shortness of breath. No paroxysmal nocturnal dyspnea or orthopnea. PAST MEDICAL HISTORY: 1. Opioid addiction, on methadone therapy. 2. Bilateral lower extremity ulceration. 3. Depression. MEDICATIONS: 1. Tylenol. 2. Cefepime 2 g daily. 3. Gabapentin. 4. Ketorolac as needed. 5. Methadone. 6. Vancomycin 1 g daily. FAMILY HISTORY: No recurrent infections or tuberculosis. SOCIAL HISTORY: She lives in [place]. She travels to [place] each day for methadone treatment. She had recently been in the hospital at [facility]. She has past heroin use. REVIEW OF SYSTEMS: All negative except as noted above to 14-point review of systems. PHYSICAL EXAM: Vitals Signs: Temperature 37, heart rate is 70, respiratory rate 12, blood pressure 99/53, oxygen saturation 95% on room air. In general, she is awake, not in distress. Neurologic: She is oriented x3, follows all commands. Sensation is intact to light touch in both feet. HEENT: There is no conjunctival hemorrhage. Oropharynx without lesions. Neck is supple without mass. There is no JVD. Heart is regular rate and rhythm without murmurs, rubs, or gallops. Lungs are clear to auscultation bilaterally. Abdomen: Soft, nontender, nondistended. There are bowel sounds present. Skin: There is no rash or splinter hemorrhage. Musculoskeletal: There is no spine tenderness to palpation. There are bilateral lower extremity red ulcerations, which are full thickness with underlying granulation tissue with surrounding erythema. There is no crepitans or fluctuance, tender to palpation. LABORATORY DATA: White blood cell count 4, hemoglobin 9, platelets 516. Creatinine 1.5 down from 1.8 yesterday, BUN is 10. CRP is 70. Please see impressions and recommendations outlined above. Thanks for asking me to see Ms. Platt in consultation. [id number]/[facility] #: [id number] [facility]
--- NOTE | 2018-08-19 16:15 | PN ---
Subjective Date of Service: 08/19/18 Interval History: Ms. Platt is feeling "okay" today. She reports feeling tired on my exam and is not particularly interested in talking about her medical care or plan. She reports throbbing pain to her BLE. She denies CP, SOB, N/V/D, dizziness. Family History: Unchanged from Admission Social History: Unchanged from Admission Past Medical History: Unchanged from Admission Objective Active Medications: Acetaminophen (Tylenol Tab*) 650 mg PO Q4H PRN Gabapentin (Neurontin Cap(*)) 800 mg PO BID CANDY Heparin Sodium (Porcine) (Heparin Vial(*)) 5,000 units SUBCUT Q8HR CANDY Sodium Chloride (Ns 0.9% 1000 Ml*) 1,000 mls @ 100 mls/hr IV PER RATE CANDY Cefepime HCl (Maxipime 2 Gm In Dextrose Duplex (*)) 2 gm in 50 mls @ 100 mls/ hr IV Q24H CANDY Methadone HCl (Dolophine Tab*) 120 mg PO DAILY CANDY Methadone HCl (Dolophine Tab*) 5 mg PO DAILY CANDY Morphine Sulfate (Morphine Inj ((Syringe))*) 2 mg IV Q4H PRN Ondansetron HCl (Zofran Inj*) 4 mg IV Q6H PRN Vilazodone HCl (Viibryd (Nf)) 40 mg PO DAILY [facility] Vital Signs - 8 hr 08/19/18 08/19/18 08/19/18 10:10 10:58 10:59 Respiratory 16 14 14 Rate 08/19/18 08/19/18 08/19/18 11:40 13:07 13:08 Respiratory 16 14 14 Rate Oxygen Devices in Use Now: None Appearance: Middle-aged female laying in bed in NAD, drowsy Eyes: No Scleral Icterus Ears/Nose/Mouth/Throat: Mucous Membranes Moist Neck: NL Appearance and Movements; NL JVP Respiratory: Symmetrical Chest Expansion and Respiratory Effort, Clear to Auscultation Cardiovascular: NL Sounds; No Murmurs; No JVD, RRR Abdominal: NL Sounds; No Tenderness; No Distention Extremities: No Edema Skin: No Nodules or Sclerosis Neurological: Alert and Oriented x 3 Lines/Tubes/Other Access: Clean, Dry and Intact Peripheral IV Nutrition: Taking PO's Result Diagrams: 08/19/18 06:45 08/19/18 06:45 Assess/Plan/Problems-Billing Assessment: Ms. Platt is a 48yo with PMH of substance abuse, depression, fibromyalgia, and borderline personality disorder who has chronic BLE wounds s/p debridement at [facility] in the last 2 months and has been on multiple antibiotics who presented to the ED with c/o worsening leg wounds and was found to have cellulitis. - Patient Problems (1) Bilateral lower leg cellulitis Current Visit: Yes Status: Acute Code(s): L03.116 - CELLULITIS OF LEFT LOWER LIMB; L03.115 - CELLULITIS OF RIGHT LOWER LIMB SNOMED Code(s): 031726528 Comment: - With multiple ulcerations; venous stasis ulcers vs pyoderma gangrenosum - US unremarkable; CT shows edema w/out underlying osseous abnormality or abscess - TTE shows EF 55-60% w/out abnormal findings - Appreciate surgery consult - Appreciate wound care consult; recommends xeroform - Appreciate ID consult; recommends cefepime, echo, biopsy - D/c vanco - Continue cefepime (2) Opioid dependence Current Visit: Yes Status: Acute Code(s): F11.20 - OPIOID DEPENDENCE, UNCOMPLICATED SNOMED Code(s): 71787897 Comment: - Continue methadone (3) Fibromyalgia Current Visit: Yes Status: Acute Code(s): M79.7 - FIBROMYALGIA SNOMED Code (s): 082253384 Comment: - Continue Viibryd and gabapentin (4) Depression Current Visit: Yes Status: Acute Code(s): F32.9 - MAJOR DEPRESSIVE DISORDER , SINGLE EPISODE, UNSPECIFIED SNOMED Code(s): 53595684 Comment: - Supportive care (5) DNR (do not resuscitate) Current Visit: Yes Status: Acute (6) DVT prophylaxis Current Visit: Yes Status: Acute Code(s): SLK1772 - SNOMED Code(s): 367405679 Comment: - Heparin SQ Status and Disposition: Inpatient. Anticipate d/c home when medically stable.
--- NOTE | 2018-08-19 18:48 | CONS ---
CC: [facility] doctor[facility]; Dr. Elio Bynum SURGICAL CONSULTATION REPORT: DATE OF CONSULT: 08/19/18 HISTORY OF PRESENT ILLNESS: Our service was contacted by consultation through the computer system to evaluate Ms. Platt, a 48-year-old female who is admitted in the overnight period with bilateral l ower extremity nonhealing ulcers. The patient presented to the emergency room from her primary care doctor's office yesterday. When ana genao presented there for evaluation, was noted to have large wounds on her lower legs that had been rece ntly treated in an inpatient setting at another facility. The concern was for cellulitis and the pat iejoey was sent to the emergency room. Approximately 1 month ago, the patient was in her regular health when she started having changes in t he skin at her right lower extremity. She presented to [facility] where she underwent an excisional debridement on that side. They removed necrotic tissues that she described as similar to eschar with leathery appearance. She was discharged and presented to [facility] a week ago with si milar findings on the left leg, both lower and at the upper thigh. Similarly, these were eschars nirmal t underwent excisional debridement in the operating room and the patient was treated with topical ca re, which included gauze daily. Her friend was doing this at home and she was for a planned followup at the [facility] sometime next week. The patient is also complaining of lesions on the left layne area that she describes are similar to wh at the other ulcers started as. The patient's function has been compromised at the left ankle. She has got swelling in the left lower leg. The patient has a history of IV drug abuse injecting into ar ms and also the legs. She states that she has been clean for 2 years and she is in a methadone progr am. PAST MEDICAL HISTORY: 1. Fibromyalgia. 2. Borderline personality disorder. PAST SURGICAL HISTORY: As described above. MEDICATIONS: While inpatient include vancomycin, which was discontinued and has been changed to cefe pime. PHYSICAL EXAMINATION: The patient has been afebrile. Vital signs are stable. She is alert and orie nted x3. She is in no apparent distress. Focused examination of the lower extremities reveals appro ximately 10 x 5 cm clean, full-thickness ulceration at the posterior right lower leg with good health y granulation tissue throughout. Periwound skin is intact with mild dermatitis, but no cellulitis. L eft lower extremity shows a similar wound at the posterior lower leg. This site show more dermatitis than the periwound skin with edema and more tenderness. The wound itself is not undermined, has goo d healthy granulation tissue and is of no depth. Additionally, the patient has a groin/upper thigh u lceration that is 3 x 7 approximately cm, again with healthy granulation tissue. There is no fluctua nce. There is no cellulitis. Range of motion at the right ankle is 5 x 5, at the left ankle, it is less so with difficulty evertin g, otherwise sensory intact. DIAGNOSTIC STUDIES/LAB DATA: Labs reviewed showed normal white count. She does have an elevated CRP of 68. Additionally, the patient has a creatinine of 1.53. She was 1.78 on arrival, which is well a altagracia her baseline of 1 that she has had in the past including this year. The patient's CT scan report as well as the images were reviewed of the left lower extremity. IMPRESSION: Necrotic ulcers of unclear etiology that were debrided appropriately at other institutio ns who was discharged for planned followup in the [facility]ound Center and expectant care, topical wound care who just came off her antibiotics at home. These were oral antibiotics. I do not believe the patien t requires any acute debridement at this point and agree with plan of outpatient followup for these w ounds. I do not believe they present pyoderma. I do not intend to biopsy these during this admissio n. If she has any as we follow her closely in the Wound Center, we can look towards rafa payne a biopsy at that time. [id number]/[facility] #: [id number]
[2018-08-19] MEDS ORDERED: Vancomycin(*) 1,000 MG in NS 0.9% 250 ML* 250 ML IVPB SCH (21:00)
[2018-08-19] MEDS: Morphine VIAL* 4 MG/ML VIAL (1 ml vial) IV PRN (22:10)
[2018-08-20] MEDS ORDERED: NS 0.9% 1000 ML* 1,000 ML IV SCH (01:30)
[2018-08-20] MEDS ORDERED: Cefepime 2 GM in Dextrose(*) 2 GM/50 ML BAG IV SCH (04:00)
[2018-08-20] MEDS: Heparin VIAL(*) 5000 UNITS/ML VIAL (FIVE THOUSAND) SUBCUT SCH ×3 (04:21→20:01)
[2018-08-20] MEDS: Morphine VIAL* 4 MG/ML VIAL (1 ml vial) IV PRN ×3 (04:30→17:55)
[2018-08-20 06:33] LABS: ABS Basophils 0 10^3/ul (0-0.2); ABS Eosinophils 0.3 10^3/ul (0-0.6); ABS Lymphocytes 1.3 10^3/ul (1.0-4.8); ABS Monocytes 0.5 10^3/ul (0-0.8); ABS Neutrophils 3.1 10^3/ul (1.5-7.7); ABS Nucleated RBC 0 10^3/ul; Calcium 7.9 mg/dL (8.6-10.3); Eosinophil % 6.5 % (0-6); Hematocrit 33 % (35-47); Hemoglobin 10.8 g/dl (12.0-16.0); Lymphocyte % 24.5 % (25-47); Mean Corpuscular HGB Conc 32 g/dl (31-36); Mean Corpuscular Hemoglobin 28 pg (27-31); Mean Corpuscular Volume 85 fL (80-97); Mean Platelet Volume 6.6 fL (7.4-10.4); Nucleated Red Blood Cells % 0.1; Platelet Count 408 10^3/ul (150-450); Potassium 4.5 mmol/L (3.5-5.0); Red Blood Count 3.92 10^6/ul (4.00-5.40); Red Cell Distribution Width 18 % (10.5-15); White Blood Count 5.2 10^3/ul (3.5-10.8)
[2018-08-20 06:39] LABS: BUN/Creatinine Ratio 6.1 (8-20)
[2018-08-20] MEDS: Methadone TAB* 5 MG PO SCH (09:27)
[2018-08-20] MEDS: Gabapentin CAP(*) 400 MG PO SCH ×2 (09:28→19:40)
[2018-08-20] MEDS: Methadone TAB* 10 MG PO SCH (09:28)
[2018-08-20] MEDS: CMC:Vilazodone (NF) 40 MG TAB PO SCH (09:29)
--- NOTE | 2018-08-20 13:07 | PN ---
Subjective Date of Service: 08/20/18 Interval History: Ms. Platt is much more alert today and able to participate in my exam. She reports feeling well, though continues to have "burning" pain to open wounds on BLE. This pain is worse when wounds are [employer]. She reports that she first noticed some scabs to her BLE back in May, and these areas have continued to progress into the wounds she now has. Initially, she did not seek care as her son was ill. She still has numerous scabbed areas that she is concerned will progress into additional wounds. She denies CP, SOB, N/V/D, dizziness. Nursing reports asymptomatic hypotension after methadone and morphine. Family History: Unchanged from Admission Social History: Unchanged from Admission Past Medical History: Unchanged from Admission Objective Active Medications: Acetaminophen (Tylenol Tab*) 650 mg PO Q4H PRN Gabapentin (Neurontin Cap(*)) 800 mg PO BID CANDY Heparin Sodium (Porcine) (Heparin Vial(*)) 5,000 units SUBCUT Q8HR CANDY Sodium Chloride (Ns 0.9% 1000 Ml*) 1,000 mls @ 100 mls/hr IV PER RATE CANDY Cefepime HCl (Maxipime 2 Gm In Dextrose Duplex (*)) 2 gm in 50 mls @ 100 mls/ hr IV Q24H CANDY Methadone HCl (Dolophine Tab*) 120 mg PO DAILY CANDY Methadone HCl (Dolophine Tab*) 5 mg PO DAILY CANDY Morphine Sulfate (Morphine Vial*) 5 mg IV Q4H PRN Ondansetron HCl (Zofran Inj*) 4 mg IV Q6H PRN Vilazodone HCl (Viibryd (Nf)) 40 mg PO DAILY [facility] Vital Signs - 8 hr 08/20/18 08/20/18 08/20/18 06:00 08:00 08:01 Temperature 98.0 F Pulse Rate 54 Respiratory 18 18 16 Rate Blood Pressure 127/59 (mmHg) O2 Sat by Pulse 96 96 Oximetry 08/20/18 11:43 Temperature 97.9 F Pulse Rate 95 Respiratory 18 Rate Blood Pressure 90/57 (mmHg) O2 Sat by Pulse 95 Oximetry Oxygen Devices in Use Now: None Appearance: Middle-aged female laying in bed in NAD Eyes: No Scleral Icterus Ears/Nose/Mouth/Throat: Mucous Membranes Moist Neck: NL Appearance and Movements; NL JVP Respiratory: Symmetrical Chest Expansion and Respiratory Effort, Clear to Auscultation Cardiovascular: NL Sounds; No Murmurs; No JVD, RRR Abdominal: NL Sounds; No Tenderness; No Distention Extremities: - - Mild to moderate nonpitting edema to LLE Skin: - - Wounds as pictured below Neurological: Alert and Oriented x 3, NL Sensation Lines/Tubes/Other Access: Clean, Dry and Intact Peripheral IV Nutrition: Taking PO's Result Diagrams: 08/20/18 06:08 08/20/18 06:08 Additional Lab and Data: Posterior RLE Posterior LLE Lateral L groin Anterior LLE Anterior L ankle Assess/Plan/Problems-Billing Assessment: Ms. Platt is a 48yo with PMH of substance abuse, depression, fibromyalgia, and borderline personality disorder who has chronic BLE wounds s/p debridement at [facility] in the last 2 months and has been on multiple antibiotics who presented to the ED with c/o worsening leg wounds and was found to have cellulitis. - Patient Problems (1) Bilateral lower leg cellulitis Current Visit: Yes Status: Acute Code(s): L03.116 - CELLULITIS OF LEFT LOWER LIMB; L03.115 - CELLULITIS OF RIGHT LOWER LIMB SNOMED Code(s): 980396714 Comment: - With multiple ulcerations; venous stasis ulcers vs pyoderma gangrenosum - US unremarkable; CT shows edema w/out underlying osseous abnormality or abscess - TTE shows EF 55-60% w/out abnormal findings - Appreciate surgery consult; recommends outpatient wound care f/u - Appreciate wound care consult; recommends xeroform - Appreciate ID consult; recommends cefepime, echo, biopsy - Continue cefepime (2) Opioid dependence Current Visit: Yes Status: Acute Code(s): F11.20 - OPIOID DEPENDENCE, UNCOMPLICATED SNOMED Code(s): 98132451 Comment: - Continue methadone (3) Fibromyalgia Current Visit: Yes Status: Acute Code(s): M79.7 - FIBROMYALGIA SNOMED Code (s): 615735335 Comment: - Continue Viibryd and gabapentin (4) Depression Current Visit: Yes Status: Acute Code(s): F32.9 - MAJOR DEPRESSIVE DISORDER , SINGLE EPISODE, UNSPECIFIED SNOMED Code(s): 10896943 Comment: - Supportive care (5) DNR (do not resuscitate) Current Visit: Yes Status: Acute (6) DVT prophylaxis Current Visit: Yes Status: Acute Code(s): WII0503 - SNOMED Code(s): 961781183 Comment: - Heparin SQ Status and Disposition: Inpatient. Anticipate d/c home when medically stable.
[2018-08-20] MEDS: LORazepam TAB(*) 0.5 MG PO PRN (19:39)
[2018-08-21] MEDS ORDERED: Vancomycin(*) 1,000 MG in NS 0.9% 250 ML* 250 ML IVPB ONE (05:00)
[2018-08-21] MEDS: Morphine VIAL* 4 MG/ML VIAL (1 ml vial) IV PRN ×4 (05:04→22:54)
[2018-08-21] MEDS: Heparin VIAL(*) 5000 UNITS/ML VIAL (FIVE THOUSAND) SUBCUT SCH ×3 (05:06→21:32)
[2018-08-21] MEDS: Cefepime 2 GM in Dextrose(*) 2 GM/50 ML BAG IV SCH (05:09)
[2018-08-21] MEDS: LORazepam TAB(*) 0.5 MG PO PRN (05:14)
[2018-08-21 06:39] LABS: ABS Basophils 0.1 10^3/ul (0-0.2); ABS Eosinophils 0.3 10^3/ul (0-0.6); ABS Lymphocytes 1.2 10^3/ul (1.0-4.8); ABS Monocytes 0.4 10^3/ul (0-0.8); ABS Neutrophils 2.5 10^3/ul (1.5-7.7); ABS Nucleated RBC 0 10^3/ul; Eosinophil % 6.9 % (0-6); Hematocrit 34 % (35-47); Hemoglobin 10.8 g/dl (12.0-16.0); Lymphocyte % 26.2 % (25-47); Mean Corpuscular HGB Conc 32 g/dl (31-36); Mean Corpuscular Hemoglobin 28 pg (27-31); Mean Corpuscular Volume 87 fL (80-97); Mean Platelet Volume 6.5 fL (7.4-10.4); Nucleated Red Blood Cells % 0.3; Platelet Count 308 10^3/ul (150-450); Red Cell Distribution Width 19 % (10.5-15); White Blood Count 4.5 10^3/ul (3.5-10.8)
[2018-08-21] MEDS: Methadone TAB* 10 MG PO SCH (08:19)
[2018-08-21] MEDS: CMC:Vilazodone (NF) 40 MG TAB PO SCH (08:21)
[2018-08-21] MEDS: Methadone TAB* 5 MG PO SCH (08:21)
[2018-08-21] MEDS: Gabapentin CAP(*) 400 MG PO SCH ×2 (08:21→21:29)
--- NOTE | 2018-08-21 10:57 | PN ---
Subjective Date of Service: 08/21/18 Interval History: Ms. Platt is anxious this morning. She was told overnight that she had a positive blood culture and she is concerned as she feels that she is not improving. She has a lot of anxiety r/t her wounds and the healing process. She continues to have 7/10 pain in BLE. Throbbing in lower leg wounds and burning in L groin wound. She is concerned about what her legs will look like after they have healed. She denies CP, SOB, N/V/D, dizziness. She has been up ambulating around the unit. Feels as though the ativan and morphine are not working well enough to manage her symptoms. Family History: Unchanged from Admission Social History: Unchanged from Admission Past Medical History: Unchanged from Admission Objective Active Medications: Acetaminophen (Tylenol Tab*) 650 mg PO Q4H PRN Gabapentin (Neurontin Cap(*)) 800 mg PO BID CANDY Heparin Sodium (Porcine) (Heparin Vial(*)) 5,000 units SUBCUT Q8HR CANDY Sodium Chloride (Ns 0.9% 1000 Ml*) 1,000 mls @ 100 mls/hr IV PER RATE CANDY Cefepime HCl (Maxipime 2 Gm In Dextrose Duplex (*)) 2 gm in 50 mls @ 100 mls/ hr IV 0600 CANDY Lorazepam (Ativan Tab(*)) 1 mg PO Q6H PRN Methadone HCl (Dolophine Tab*) 120 mg PO DAILY CANDY Methadone HCl (Dolophine Tab*) 5 mg PO DAILY CANDY Morphine Sulfate (Morphine Vial*) 8 mg IV Q4H PRN Ondansetron HCl (Zofran Inj*) 4 mg IV Q6H PRN Vilazodone HCl (Viibryd (Nf)) 40 mg PO DAILY [facility] Vital Signs - 8 hr 08/21/18 08/21/18 08/21/18 03:18 05:04 05:14 Temperature 97.9 F Pulse Rate 76 Respiratory 16 16 18 Rate Blood Pressure 124/72 (mmHg) O2 Sat by Pulse 94 Oximetry 08/21/18 08/21/18 08/21/18 07:05 08:15 08:19 Temperature 97.5 F Pulse Rate 78 Respiratory 16 16 18 Rate Blood Pressure 114/70 (mmHg) O2 Sat by Pulse 96 Oximetry Oxygen Devices in Use Now: None Appearance: Middle-aged female sitting in bed in NAD Eyes: No Scleral Icterus Ears/Nose/Mouth/Throat: Mucous Membranes Moist Neck: NL Appearance and Movements; NL JVP Respiratory: Symmetrical Chest Expansion and Respiratory Effort, Clear to Auscultation Cardiovascular: NL Sounds; No Murmurs; No JVD, RRR Abdominal: NL Sounds; No Tenderness; No Distention Extremities: - - Mild nonpitting edema to L ankle and foot Skin: - - Two large wounds to posterior lower legs and one large wound to left groin; Multiple small wounds that are not open; Scabbed wound to right groin has palpable rope-like cording laterally; Pictures in progress note form 08/20 Neurological: Alert and Oriented x 3 Lines/Tubes/Other Access: Clean, Dry and Intact Peripheral IV Nutrition: Taking PO's Result Diagrams: 08/21/18 05:58 08/20/18 06:08 Assess/Plan/Problems-Billing Assessment: Ms. Platt is a 48yo with PMH of substance abuse, depression, fibromyalgia, and borderline personality disorder who has chronic BLE wounds s/p debridement at [facility]] in the last 2 months and has been on multiple antibiotics who presented to the ED with c/o worsening leg wounds and was found to have cellulitis. - Patient Problems (1) Bilateral lower leg cellulitis Current Visit: Yes Status: Acute Code(s): L03.116 - CELLULITIS OF LEFT LOWER LIMB; L03.115 - CELLULITIS OF RIGHT LOWER LIMB SNOMED Code(s): 731193533 Comment: - With multiple ulcerations; venous stasis ulcers vs pyoderma gangrenosum vs ? - Still awaiting records from [facility]3] - US unremarkable; CT shows edema w/out underlying osseous abnormality or abscess - TTE shows EF 55-60% w/out abnormal findings to support CHF - 1/4 BC + for gram positive cocci; deemed contaminant - Appreciate surgery consult; recommends outpatient wound care f/u - Appreciate wound care consult; recommends xeroform and gauze - Appreciate ID consult; recommends cefepime, echo, biopsy - Consult placed w/ pathology for wound biopsy - Continue cefepime, morphine (2) Opioid dependence Current Visit: Yes Status: Acute Code(s): F11.20 - OPIOID DEPENDENCE, UNCOMPLICATED SNOMED Code(s): 18633694 Comment: - Continue methadone (3) Fibromyalgia Current Visit: Yes Status: Acute Code(s): M79.7 - FIBROMYALGIA SNOMED Code (s): 529401386 Comment: - Continue Viibryd and gabapentin (4) Depression Current Visit: Yes Status: Acute Code(s): F32.9 - MAJOR DEPRESSIVE DISORDER , SINGLE EPISODE, UNSPECIFIED SNOMED Code(s): 28930816 Comment: - Supportive care (5) DNR (do not resuscitate) Current Visit: Yes Status: Acute (6) DVT prophylaxis Current Visit: Yes Status: Acute Code(s): AZG6587 - SNOMED Code(s): 859692448 Comment: - Heparin SQ Status and Disposition: Inpatient. Anticipate d/c home when medically stable.
[2018-08-21] MEDS: LORazepam TAB(*) 1 MG PO PRN ×2 (12:35→19:43)
[2018-08-21] MEDS ORDERED: Vancomycin Trough Check NOTE FOLLOW UP ONE (20:30)
[2018-08-21 21:10] LABS: EGFR Non-African American 40.1 (>60)
[2018-08-22] MEDS: Morphine VIAL* 4 MG/ML VIAL (1 ml vial) IV PRN ×4 (03:14→18:14)
[2018-08-22] MEDS: Cefepime 2 GM in Dextrose(*) 2 GM/50 ML BAG IV SCH (06:07)
[2018-08-22] MEDS: Heparin VIAL(*) 5000 UNITS/ML VIAL (FIVE THOUSAND) SUBCUT SCH ×3 (06:12→22:02)
[2018-08-22] MEDS: LORazepam TAB(*) 1 MG PO PRN ×3 (06:20→20:52)
[2018-08-22] MEDS: Methadone TAB* 10 MG PO SCH (09:21)
[2018-08-22] MEDS: Methadone TAB* 5 MG PO SCH (09:26)
[2018-08-22] MEDS: Gabapentin CAP(*) 400 MG PO SCH ×2 (09:26→20:53)
[2018-08-22] MEDS: CMC:Vilazodone (NF) 40 MG TAB PO SCH (09:26)
[2018-08-22 14:34] LABS: ABS Basophils 0.1 10^3/ul (0-0.2); ABS Eosinophils 0.3 10^3/ul (0-0.6); ABS Lymphocytes 1.6 10^3/ul (1.0-4.8); ABS Monocytes 0.6 10^3/ul (0-0.8); ABS Neutrophils 3.8 10^3/ul (1.5-7.7); ABS Nucleated RBC 0 10^3/ul; Eosinophil % 4.9 % (0-6); Hematocrit 31 % (35-47); Hemoglobin 10.2 g/dl (12.0-16.0); Lymphocyte % 25.4 % (25-47); Mean Corpuscular HGB Conc 33 g/dl (31-36); Mean Corpuscular Hemoglobin 28 pg (27-31); Mean Corpuscular Volume 85 fL (80-97); Mean Platelet Volume 6.2 fL (7.4-10.4); Nucleated Red Blood Cells % 0; Platelet Count 444 10^3/ul (150-450); Red Blood Count 3.63 10^6/ul (4.00-5.40); Red Cell Distribution Width 18 % (10.5-15); White Blood Count 6.4 10^3/ul (3.5-10.8)
[2018-08-22 14:50] LABS: BUN/Creatinine Ratio 6.2 (8-20); C Reactive Protein 27.3 mg/L (<8.01); Calcium 8.8 mg/dL (8.6-10.3); EGFR Non-African American 38.2 (>60); Potassium 3.8 mmol/L (3.5-5.0)
--- NOTE | 2018-08-22 16:05 | PN ---
Subjective Date of Service: 08/22/18 Interval History: Patient seen and examined at bedside. Denies fever, chills, shortness of breath , chest discomfort, N/V/D. Ms. Platt reports pain in her legs when she is standing and this pain improves once her legs are elevated. She also reports that her legs turn "purplish" in color when she is standing and then the get better once elevated. She reports that she was told to do wet to dry dressings when she was discharged from the last hospital. She denies skin popping and states that she has been clean for 2 years. She states that the areas start as black dots and then "explode", getting firm and the skin opening up. She also reports right sided discomfort, that she describes as similar to the last time she had pneumonia, she denies cough. Family History: Unchanged from Admission Social History: Unchanged from Admission Past Medical History: Unchanged from Admission Objective Active Medications: Acetaminophen (Tylenol Tab*) 650 mg PO Q4H PRN Reason: FEVER/PAIN Gabapentin (Neurontin Cap(*)) 800 mg PO BID [facility] Heparin Sodium (Porcine) (Heparin Vial(*)) 5,000 units SUBCUT Q8HR [facility] Cefepime HCl (Maxipime 2 Gm In Dextrose Duplex (*)) 2 gm in 50 mls @ 100 mls/ hr IV 0600 [facility] Lorazepam (Ativan Tab(*)) 1 mg PO Q6H PRN Reason: ANXIETY Methadone HCl (Dolophine Tab*) 120 mg PO DAILY [facility] Methadone HCl (Dolophine Tab*) 5 mg PO DAILY [facility] Morphine Sulfate (Morphine Vial*) 8 mg IV Q4H PRN Reason: PAIN Ondansetron HCl (Zofran Inj*) 4 mg IV Q6H PRN Reason: NAUSEA Vilazodone HCl (Viibryd (Nf)) 40 mg PO DAILY [facility] Vital Signs - 8 hr 08/22/18 08/22/18 08/22/18 08:20 09:21 09:26 Respiratory 16 16 16 Rate 08/22/18 08/22/18 08/22/18 10:15 11:13 11:21 Respiratory 16 16 18 Rate 08/22/18 08/22/18 08/22/18 11:26 13:11 13:58 Respiratory 18 16 16 Rate 11/12/18 11/12/18 14:58 15:20 Respiratory 16 16 Rate Oxygen Devices in Use Now: None Appearance: NAD, laying in bed Ears/Nose/Mouth/Throat: Mucous Membranes Moist Respiratory: Symmetrical Chest Expansion and Respiratory Effort, Clear to Auscultation Cardiovascular: NL Sounds; No Murmurs; No JVD, RRR Abdominal: NL Sounds; No Tenderness; No Distention Extremities: No Edema Skin: - - Large full thickness ulcers to the left groin, and bilateral calfs with granulated tissues in the wound base. She additionally has muliple small ulcers to bilateral LEs Neurological: Alert and Oriented x 3 Nutrition: Taking PO's Result Diagrams: 08/22/18 14:26 08/22/18 14:26 Microbiology and Other Data: Microbiology 08/19/18 05:00 Urine Culture - Final Urine 08/19/18 00:20 Aerobic Blood Culture - Preliminary Blood Venous No Growth Day 1 Anaerobic Blood Culture - Preliminary No Growth Day 1 08/18/18 21:15 Aerobic Blood Culture - Preliminary Blood Venous No Growth Day 1 Anaerobic Blood Culture - Preliminary No Growth Day 1 Assess/Plan/Problems-Billing Assessment: Ms. Platt is a 48yo with PMH of substance abuse, depression, fibromyalgia, and borderline personality disorder who has chronic BLE wounds s/p debridement at [facility] and [facility] in the last 2 months and has been on multiple antibiotics who presented to the ED with c/o worsening leg wounds and was found to have cellulitis. - Patient Problems (1) Bilateral lower leg cellulitis Code(s): L03.116 - CELLULITIS OF LEFT LOWER LIMB; L03.115 - CELLULITIS OF RIGHT LOWER LIMB SNOMED Code(s): 003730298 Comment: - Afebrile and no leukocytosis - With multiple ulcerations; venous stasis ulcers vs pyoderma gangrenosum vs ? - Still awaiting records from [facility] and [facility] - US unremarkable; CT shows edema w/out underlying osseous abnormality or abscess - TTE shows EF 55-60% w/out abnormal findings to support CHF - 1/4 BC + for gram positive cocci is likely contaminant - Appreciate surgery consult; recommends outpatient wound care f/u - Appreciate wound care consult; recommends xeroform and gauze - Appreciate ID consult; recommends cefepime, echo, biopsy - Consult placed w/ pathology for wound biopsy, pending at this time - Continue cefepime (2) Opioid dependence Code(s): F11.20 - OPIOID DEPENDENCE, UNCOMPLICATED SNOMED Code(s): 62722567 Comment: - Continue methadone (3) Fibromyalgia Code(s): M79.7 - FIBROMYALGIA SNOMED Code(s): 908314657 Comment: - Continue Viibryd and gabapentin (4) Depression Code(s): F32.9 - MAJOR DEPRESSIVE DISORDER, SINGLE EPISODE, UNSPECIFIED SNOMED Code(s): 60763674 Comment: - Supportive care (5) DVT prophylaxis Code(s): TXS4868 - SNOMED Code(s): 481729002 Comment: - Heparin SQ (6) DNR (do not resuscitate) Status and Disposition: Inpatient. Anticipate d/c home when medically stable.
[2018-08-23] MEDS: Morphine VIAL* 4 MG/ML VIAL (1 ml vial) IV PRN ×4 (02:24→21:16)
[2018-08-23] MEDS: Heparin VIAL(*) 5000 UNITS/ML VIAL (FIVE THOUSAND) SUBCUT SCH ×3 (05:50→21:09)
[2018-08-23] MEDS: Cefepime 2 GM in Dextrose(*) 2 GM/50 ML BAG IV SCH (05:50)
[2018-08-23] MEDS: LORazepam TAB(*) 1 MG PO PRN ×2 (08:38→14:24)
[2018-08-23] MEDS: Gabapentin CAP(*) 400 MG PO SCH ×2 (08:38→21:08)
[2018-08-23] MEDS: CMC:Vilazodone (NF) 40 MG TAB PO SCH (08:39)
[2018-08-23] MEDS ORDERED: Methadone TAB* 10 MG PO SCH (09:00)
--- NOTE | 2018-08-23 14:13 | CONSULT ---
Consult Consult: INPATIENT PAIN CONSULTATION Princess Platt is a 48 year old female. She has a history of IVDA for20+ years. She was a heroin addict. 2 years ago, she got sober and was started on Suboxone but didn't really think it was helping her stay sober. She then transferred to the Methadone clinic in [place]. She says she has been clean for two years. She gets Methadone, approximately 125 mg daily. She goes to the clinic five days a week and gets her dose for the weekends on Fridays. She is Hep C positive, neg for HIV. Two months ago, she developed ulcers on her legs. She was eventually admitted to [facility] in [place] and was discharged home. She had to go back to [facility] for another round of antibiotics and then was discharged. After discharge, she was supposed to be set up with the wound clinic but wasn't. She saw her primary care doctor. She was sent to the ER at [facility] and admitted. She had debridement of her wounds at the other hospitals. She is on Methadone and IV morphine and still says she is in pain. PAST MEDICAL HISTORY: Borderline Personality, Hep C + Allergies Allergy/AdvReac Type Severity Reaction Status Date / Time divalproex sodium Allergy Swelling Verified 03/10/18 09:36 [From Depakote] duloxetine [From Cymbalta] Allergy See Comment Verified 03/10/18 09:37 kaleb Allergy Shortness Verified 03/10/18 09:36 of Breath pregabalin [From Lyrica] Allergy Anaphylatic Verified 03/10/18 09:36 Shock Current Medications Acetaminophen (Tylenol Tab*) 650 mg PO Q4H PRN PRN Reason: FEVER/PAIN Gabapentin (Neurontin Cap(*)) 800 mg PO BID [facility] Last Admin: 08/23/18 08:38 Dose: 800 mg Heparin Sodium (Porcine) (Heparin Vial(*)) 5,000 units SUBCUT Q8HR [facility] Last Admin: 08/23/18 05:50 Dose: 5,000 units Cefepime HCl (Maxipime 2 Gm In Dextrose Duplex (*)) 2 gm in 50 mls @ 100 mls/ hr IV 0600 [facility] Last Admin: 08/23/18 05:50 Dose: 100 mls/hr Lorazepam (Ativan Tab(*)) 1 mg PO Q6H PRN PRN Reason: ANXIETY Last Admin: 08/23/18 08:38 Dose: 1 mg Methadone HCl (Dolophine Tab*) 110 mg PO DAILY [facility] Last Admin: 08/23/18 08:37 Dose: 110 mg Morphine Sulfate (Morphine Vial*) 8 mg IV Q4H PRN PRN Reason: PAIN Last Admin: 08/23/18 08:29 Dose: 8 mg Ondansetron HCl (Zofran Inj*) 4 mg IV Q6H PRN PRN Reason: NAUSEA Vilazodone HCl (Viibryd (Nf)) 40 mg PO DAILY [facility] Last Admin: 08/23/18 08:39 Dose: 40 mg SOCIAL HISTORY: 1 ppd smoker, no alcohol. Usually lives with her son, recently lost her apartment. Her son is also in recovery Vital Signs Temp Pulse Resp BP Pulse Ox 98.5 F 103 14 83/46 94 08/23/18 11:42 08/23/18 11:42 08/23/18 11:42 08/23/18 11:42 08/23/18 11:42 EXAM: LUNGS: Clear HEART: reg rhythm ABDOMEN: Soft, +BS EXTREMITIES: wound dressings clean NEUROLOGIC: moves all 4 extremities ASSESSMENT: 1. Bilateral leg ulcers 2. History of IV drug abuse, on chronic methadone PLAN: I don't generally like to use IV opioids in patients with a history of IVDA. Will try to transition to PO Morphine. Her Methadone here is pills, she normally takes liquid, so this might be a factor in her pain. Will order PO Morphine sulfate and see how she does. Continue Methadone, currently 110 mg
[2018-08-23] MEDS: Morphine ORAL.SOLN 10 mg* 2 MG/ML UDC 5 ml PO PRN ×2 (16:53→21:09)
--- NOTE | 2018-08-23 20:29 | PN ---
Subjective Date of Service: 08/23/18 Interval History: Patient seen and examined at bedside. Denies fever, chills, shortness of breath , chest discomfort, N/V/D. She reports that she continues to have pain in her legs and her right side. The pain on the right side is reproducible. She reports having a cough when she was hospitalized previously, this cough has resolved. During that hospitalization she had a thoracentesis on the left. Family History: Unchanged from Admission Social History: Unchanged from Admission Past Medical History: Unchanged from Admission Objective Active Medications: Acetaminophen (Tylenol Tab*) 650 mg PO Q4H PRN Reason: FEVER/PAIN Gabapentin (Neurontin Cap(*)) 800 mg PO BID [facility] Heparin Sodium (Porcine) (Heparin Vial(*)) 5,000 units SUBCUT Q8HR [facility] Cefepime HCl (Maxipime 2 Gm In Dextrose Duplex (*)) 2 gm in 50 mls @ 100 mls/ hr IV 0600 [facility] Lorazepam (Ativan Tab(*)) 1 mg PO Q6H PRN Reason: ANXIETY Methadone HCl (Dolophine Tab*) 110 mg PO DAILY [facility] Morphine Sulfate (Morphine Vial*) 4 mg IV Q6H PRN Reason: PAIN - UNCONTROLLED Morphine Sulfate (Morphine Oral.Soln 10 Mg*) 10 mg PO Q4H PRN Reason: PAIN - MODERATE TO SEVERE Ondansetron HCl (Zofran Inj*) 4 mg IV Q6H PRN Reason: NAUSEA Vilazodone HCl (Viibryd (Nf)) 40 mg PO DAILY [facility] Vital Signs - 8 hr 08/23/18 08/23/18 08/23/18 14:24 14:25 15:11 Temperature 98.1 F Pulse Rate 85 Respiratory 14 14 Rate Blood Pressure 87/54 (mmHg) O2 Sat by Pulse 93 Oximetry 08/23/18 16:53 Temperature Pulse Rate Respiratory 14 Rate Blood Pressure (mmHg) O2 Sat by Pulse Oximetry Oxygen Devices in Use Now: None Appearance: NAD, laying in bed Ears/Nose/Mouth/Throat: Mucous Membranes Moist Respiratory: Symmetrical Chest Expansion and Respiratory Effort, Clear to Auscultation Cardiovascular: NL Sounds; No Murmurs; No JVD, RRR Abdominal: NL Sounds; No Tenderness; No Distention Extremities: - - Mild bilateral LE edema Skin: - - Large wounds to bilateral posterior calfs, and left groin. Neurological: Alert and Oriented x 3, NL Muscle Strength and Tone Lines/Tubes/Other Access: Clean, Dry and Intact Peripheral IV - site benign Nutrition: Taking PO's Result Diagrams: 08/22/18 14:26 08/22/18 14:26 Microbiology and Other Data: Microbiology 08/19/18 05:00 Urine Culture - Final Urine 08/19/18 00:20 Aerobic Blood Culture - Preliminary Blood Venous No Growth Day 1 Anaerobic Blood Culture - Preliminary No Growth Day 1 08/18/18 21:15 Aerobic Blood Culture - Preliminary Blood Venous No Growth Day 1 Anaerobic Blood Culture - Preliminary No Growth Day 1 Assess/Plan/Problems-Billing Assessment: Ms. Platt is a 48yo with PMH of substance abuse, depression, fibromyalgia, and borderline personality disorder who has chronic BLE wounds s/p debridement at [facility] and [facility] in the last 2 months and has been on multiple antibiotics who presented to the ED with c/o worsening leg wounds and was found to have cellulitis. - Patient Problems (1) Bilateral lower leg cellulitis Code(s): L03.116 - CELLULITIS OF LEFT LOWER LIMB; L03.115 - CELLULITIS OF RIGHT LOWER LIMB SNOMED Code(s): 298790055 Comment: - Afebrile and no leukocytosis - With multiple ulcerations; venous stasis ulcers vs pyoderma gangrenosum vs ? - Still awaiting records from [facility]. We have received [facility] records but no pathology reports - US unremarkable; CT shows edema w/out underlying osseous abnormality or abscess - TTE shows EF 55-60% w/out abnormal findings to support CHF - 1/4 BC + for gram positive cocci is likely contaminant - Appreciate surgery consult; recommends outpatient wound care f/u - Appreciate wound care consult; recommends xeroform and gauze - Appreciate ID consult; recommends cefepime, echo, biopsy - Consult placed w/ pathology for wound biopsy, they are unable to biopsy. They will work on getting previous tissue samples - Continue cefepime (2) Opioid dependence Code(s): F11.20 - OPIOID DEPENDENCE, UNCOMPLICATED SNOMED Code(s): 74107588 Comment: - Pain management consult, input appreciated - Continue methadone (3) Fibromyalgia Code(s): M79.7 - FIBROMYALGIA SNOMED Code(s): 305141754 Comment: - Pain management consult, input appreciated - Continue Viibryd and gabapentin (4) Depression Code(s): F32.9 - MAJOR DEPRESSIVE DISORDER, SINGLE EPISODE, UNSPECIFIED SNOMED Code(s): 96644570 Comment: - Supportive care (5) DVT prophylaxis Code(s): LWF6061 - SNOMED Code(s): 386111424 Comment: - Heparin SQ (6) DNR (do not resuscitate) Status and Disposition: Inpatient. Anticipate d/c home when medically stable. Possible discharge to home in the AM.
[2018-08-24] MEDS: Morphine VIAL* 4 MG/ML VIAL (1 ml vial) IV PRN ×2 (02:16→09:16)
[2018-08-24] MEDS: Cefepime 2 GM in Dextrose(*) 2 GM/50 ML BAG IV SCH (05:36)
[2018-08-24] MEDS: Heparin VIAL(*) 5000 UNITS/ML VIAL (FIVE THOUSAND) SUBCUT SCH (05:37)
[2018-08-24] MEDS: Morphine ORAL.SOLN 10 mg* 2 MG/ML UDC 5 ml PO PRN ×2 (05:50→09:56)
[2018-08-24] MEDS: LORazepam TAB(*) 1 MG PO PRN (07:29)
[2018-08-24 08:40] VITALS: BP 112/61
[2018-08-24] MEDS: Gabapentin CAP(*) 400 MG PO SCH (08:54)
[2018-08-24] MEDS: CMC:Vilazodone (NF) 40 MG TAB PO SCH (08:55)
[2018-08-24] MEDS ORDERED: Methadone TAB* 5 MG PO SCH (09:00)
[2018-08-24] MEDS ORDERED: Methadone TAB* 10 MG PO SCH (09:00)
--- NOTE | 2018-08-24 11:01 | PN ---
Progress Note - Progress Note Date of Service: 08/24/18 Note: INPATIENT PAIN-PROGRESS NOTE She did not like the fact that I cut her IV morphine dose in half. She thinks the PO Morphine does not work. Given her history and her wounds, I think she can be safely discharged home on Methadone and PO Morphine Sulfate Instant Release (MSIR) 15 mg tabs, 1 tablet every 6 hours as needed, MDD=4, Dispense #20. She and her son requested Dilaudid 8 mg tablets yesterday, but I do not think she needs that. ASSESSMENT: 1. Open wounds on legs 2. History of IVDA with heroin for 20 years, now on Methadone maintenance PLAN: Continue methadone maintenance. MSIR for pain for a short period.
--- NOTE | 2018-08-25 10:36 | DS ---
CC: Dr. Schultz; Dr. Jesus Bynum; Dr. Arash Meng * DISCHARGE SUMMARY: DATE OF ADMISSION: 08/18/18 DATE OF AMA: 08/24/18 PRIMARY CARE PROVIDER: Dr. Jamal Schultz. ATTENDING PHYSICIAN: Dr. Coco Hinojosa * (dictated by Gloria Leal NP). PRIMARY DIAGNOSES: 1. Bilateral lower leg cellulitis. 2. Opioid dependence. SECONDARY DIAGNOSES: 1. Fibromyalgia. 2. Depression. CONSULTATIONS WHILE IN THE HOSPITAL: 1. Dr. Bynum saw the patient on 08/19/18 in consultation for cellulitis. 2. Dr. Jacobo saw the patient in consultation on 08/19/18 for bilateral lower extremity nonhealing wound. 3. Dr. Meng saw the patient on 08/23/18 in consultation for pain management. STUDIES WHILE IN THE HOSPITAL: 1. Chest x-ray on 08/18/18 reads as linear atelectasis of the lung bases bilaterally with patchy consolidation of the right lower lung. 2. A left venous Doppler study on 08/18/18 reads as no acute findings. No evidence of deep vein thrombosis. 3. Left lower extremity CT on 08/18/18 reads as diffuse subcutaneous and deep soft tissue edema without underlying osseous abnormality or abscess. 4. Transthoracic echocardiogram on 08/19/18 reads as there is normal left ventricular systolic function. The estimated ejection fraction is 55% to 60%. Global left ventricular wall motion and contractility are within normal limits. Normal cardiac chamber sizes. Functionally benign heart valves. There is no prior echocardiogram available to compare at this time. HISTORY OF PRESENT ILLNESS AND HOSPITAL COURSE: Ms. Platt is a 48-year-old female with past medical history of depression, fibromyalgia, borderline personality disorder, and IV drug use, who presented to the emergency room on with complaint of lower extremity redness, wounds, and swelling. Please see the history and physical by Dawit Cobb NP for a complete summary of the events leading up to this hospitalization. In short, the patient reported that about 6 weeks ago, she was admitted at [facility] in [place]. She ultimately was there for a month. At that point, they debrided wounds on her bilateral lower extremities and she was placed on antibiotic. She was discharged from [facility], went home for a short period of time, and then went to [facility] , where she was again hospitalized and had her wounds debrided. She was there for about 4 to 5 days and was discharged on a course of oral antibiotics. She went to see her PCP on 08/18/18 and he sent her to the emergency room for concerns of recurrent infection. In the emergency room, she had imaging as noted above. She was noted to have 1 wound on her right posterior lower leg, 1 wound on her left posterior lower leg, and 1 wound in her left groin. These wounds were noted to be ulcerated with granulation tissue in the wound bases. The concern for cellulitis was specifically to her left lower leg where she had edema and erythema. She additionally was noted to have multiple small scattered closed wounds on bilateral lower extremities. She was admitted to ID hospitalist service for cellulitis. She was placed on cefepime and vancomycin. Dr. Bynum was consulted as noted above. At that point, he recommended stopping the vancomycin, continuing cefepime. He asked that we check an echocardiogram to rule out pulmonary hypertension and recommended a skin biopsy to evaluate for pyoderma gangrenosum. She was then seen by Dr. Jacobo as noted above, who felt as though the patient did not require any acute debridement and recommended outpatient followup. He did not believe that the wounds represented pyoderma gangrenosum and did not feel as though they needed to be biopsied at that point. She was continued on antibiotics with gradual improvement in the edema and erythema to the left lower leg. Her wounds were dressed with Xeroform and gauze [facility] recommendations. She ultimately had 1 of 4 blood culture bottles positive. This was not treated as there was determined to be a contaminant. She was medicated for pain with morphine while here as she complained of significant pain to the lower extremity wound and was ultimately consulted by Dr. Meng as noted above. He recommended transitioning her to oral morphine and continuing her methadone. On the evening of 08/23/18, the patient reportedly became upset due to the change in her morphine. She felt as though her pain was not adequately managed and she was requesting to leave against medical advice. She ultimately agreed to stay the night. On day of discharge, 08/24/18, the patient was quite agitated stating that her pain was not being adequately managed. She did take a smaller dose of her ordered methadone, it is not clear why, although she was requesting additional morphine. I spoken at length with the patient about pain management and our goals of treatment. I noted to her that I will speak with Dr. Meng for further recommendation for outpatient pain management. I did inform her that she would be discharged on oral antibiotics and will need to follow up with Wound Care and her PCP. Later that morning, I spoke with Dr. Meng about recommendations for outpatient pain management. He and I agreed that the patient could be discharged with a small supply of morphine to help manage her pain. I sent that prescription to her pharmacy and went to speak with the patient and was informed by staff that the patient had walked out approximately 5 minutes prior with her midline reportedly in place. Security was not able to locate the patient, so the police were called. Ultimately, the police did report back to the nursing staff , who reported to me that they did locate the patient. She had removed her own midline and stated to them that she would be following up at [facility] for further care. Last vital signs are as follows: Temp 97.8, heart rate 73, respiratory rate 16, oxygen saturation 94% on room air, and blood pressure 112/ 61. DISCHARGE MEDICATIONS: New home medications: 1. Cephalexin 500 mg p.o. q.i.d. x7 days. Continued home medications: 1. Gabapentin 800 mg p.o. t.i.d. 2. Viibryd 40 mg p.o. daily. 3. Methadone mg p.o. daily. DISCHARGE PLAN: Ms. Platt eloped the facility. Ultimately, I was planning to discharge her this morning, though she left before I was able to fully discuss discharge plans and instructions with her. Medications are noted above. Ideally, the patient would complete a 7-day course of cephalexin to ensure resolution of her cellulitis. This is a summarized report of a complex medical history and hospital stay. For further details, please see the entire medical record. TIME SPENT: Approximately 45 minutes were spent on this discharge, greater than half of that time spent [id number] with the patient discussing discharge plans and instructions. GLORIA LEAL, [employer]IEF [id number]/[facility] #: [id number] GORGE
== END 2018-08-24 11:00 | disposition left against medical advice (07) | DRG 383 ==
LOC: ED 19:07 → MED 08-19 00:35
PROVIDERS: ADMIT Internal Medicine; ATTEND Internal Medicine
DX: L03.116 Cellulitis of left lower limb (principal); L97.919 Non-pressure chronic ulcer of unspecified part of right lower leg with unspecified severity; N17.9 Acute kidney failure, unspecified; F11.20 Opioid dependence, uncomplicated; L97.929 Non-pressure chronic ulcer of unspecified part of left lower leg with unspecified severity; J98.11 Atelectasis; L03.115 Cellulitis of right lower limb; F32.9 Major depressive disorder, single episode, unspecified; M79.7 Fibromyalgia; F60.3 Borderline personality disorder; F17.210 Nicotine dependence, cigarettes, uncomplicated; I95.9 Hypotension, unspecified; Z66 Do not resuscitate; F41.9 Anxiety disorder, unspecified; Z53.21 Procedure and treatment not carried out due to patient leaving prior to being seen by health care provider; Z90.49 Acquired absence of other specified parts of digestive tract; Z88.8 Allergy status to other drugs, medicaments and biological substances; Z91.018 Allergy to other foods; Z83.79 Family history of other diseases of the digestive system; Z87.01 Personal history of pneumonia (recurrent); Z98.51 Tubal ligation status; Z86.19 Personal history of other infectious and parasitic diseases; Z81.8 Family history of other mental and behavioral disorders; Z81.1 Family history of alcohol abuse and dependence
CPT/HCPCS: 36415; 71045; 80048; 80053; 81003; 81015; 82550; 82565; 82570; 83605; 84145; 84300; 84520; 85025; 85610; 85652; 85730; 86140; 87040; 87077; 87086; 87150; 87205; 93306; 99283; A9270-GY; C8929; J0692; J1644; J1885; J2060; J2270; J3370; J3486

== ENCOUNTER 2018-08-31 18:32 | Inpatient (IN) | payer OTHER ==
--- NOTE | 2018-08-31 19:25 | ED ---
HPI Febrile Illness - HPI Summary HPI Summary: This patient is a 48 year old female brought in by ambulance to [facility] with a chief complaint of febrile illness and chills since earlier today. Patient was admitted in the 18 of August for skin infection/cellulitis. Patient signed out AMA from the floor August 24 as she did not receive pain medication. She was given Keflex for 1 week. Patient lives with her friends house. Her friend called EMS for the patient today, against her will, as she was sitting on the floor, crying about how she was freezing. Patient states that she has been feeling weak recently. Patient wishes to leave the hospital and states that she simply doesnt care what happens. Patient states she has chronic pain and cannot sleep. The pain is rated 0/10 in severity. Symptoms aggravated by nothing. Symptoms alleviated by nothing. Patient additionally reports chills. Patient also presents with red streaks on all extremities for the past few weeks. Patient denies cough. Patient currently attends a methadone clinic and has a hx of depression and anxiety. - History of Current Complaint Chief Complaint: EDFever Time Seen by Provider: 08/31/18 19:11 Hx Obtained From: Patient Hx Last Menstrual Period: 04/13/17 Onset/Duration: Started Hours Ago, Still Present Timing: Constant Temperature: 102.5 F Initial Severity: Moderate Pain Intensity: 0 Pain Scale Used: 0-10 Numeric Aggravating Factors: Nothing Alleviating Factors: Nothing Associated Signs and Symptoms: Negative - chills, Rash, Other: - chills, weakness - Additional Pertinent History Primary Care Physician: [id number] - Allergy/Home Medications Allergies/Adverse Reactions: Allergies Allergy/AdvReac Type Severity Reaction Status Date / Time divalproex sodium Allergy Swelling Verified 03/10/18 09:36 [From Depakote] duloxetine [From Cymbalta] Allergy See Comment Verified 03/10/18 09:37 kaleb Allergy Shortness Verified 03/10/18 09:36 of Breath pregabalin [From Lyrica] Allergy Anaphylatic Verified 03/10/18 09:36 Shock PMH/Surg Hx/FS Hx/Imm Hx Previously Healthy: Yes Endocrine/Hematology History: Denies: Hx Diabetes Cardiovascular History: Denies: Hx Hypertension, Hx Pacemaker/ICD Respiratory History: Denies: Hx Asthma History: Denies: Hx Dialysis, Hx Renal Disease Sensory History: Reports: Hx Contacts or Glasses Denies: Hx Hearing Aid Opthamlomology History: Reports: Hx Contacts or Glasses Psychiatric History: Reports: Hx Anxiety, Hx Eating Disorder - "not anymore", Hx Depression, Hx Substance Abuse Denies: Hx Panic Disorder, Hx of Violent Episodes Against Others - Surgical History Surgery Procedure, Year, and Place: C SECTION - X2, TUBAL LIGATION, GALL BLADDER 2013 Infectious Disease History: No Infectious Disease History: Reports: Hx Hepatitis - HEP C, Hx of Known/ Suspected MRSA - nose 2009 Denies: Hx Clostridium Difficile, Hx Human Immunodeficiency Virus (HIV), Hx Shingles, Hx Tuberculosis, Hx Known/Suspected VRE, 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, History Other Infectious Disease, Traveled Outside the [place] in Last 30 Days - Family History Known Family History: Positive: Other - Bipolar disorder, alcoholism Negative: Cardiac Disease, Hypertension, Diabetes - Social History Alcohol Use: None Hx Substance Use: Yes Substance Use Type: Reports: Heroin - former Substance Use Comment - Amount & Last Used: 04/29/17 Hx Tobacco Use: Yes Smoking Status (MU): Heavy Every Day Tobacco Smoker Type: Cigarettes Amount Used/How Often: 1 PPD Length of Time of Smoking/Using Tobacco: 32 years Have You Smoked in the Last Year: Yes Review of Systems Positive: Fever, Chills Negative: Cough Positive: Rash Positive: Weakness Positive: Anxious All Other Systems Reviewed And Are Negative: Yes Physical Exam - Summary Physical Exam Summary: VITAL SIGNS: Reviewed. GENERAL: Patient is a well-developed and nourished female who is lying comfortable in the stretcher. Patient is not in any acute respiratory distress. Patient was examined in her clothes as she refused to get into a gown. HEAD AND FACE: No signs of trauma. No ecchymosis, hematomas or skull depressions. No sinus tenderness. EYES: PERRLA, EOMI x 2, No injected conjunctiva, no nystagmus. EARS: Hearing grossly intact. Ear canals and tympanic membranes are within normal limits. MOUTH: Oropharynx within normal limits. NECK: Supple, trachea is midline, no adenopathy, no JVD, no carotid bruit, no c- spine tenderness, neck with full ROM. CHEST: Symmetric, no tenderness at palpation LUNGS: Clear to auscultation bilaterally. No wheezing or crackles. CVS: Tachycardic but regular rhythm, S1 and S2 present, no murmurs or gallops appreciated. ABDOMEN: Soft, non-tender. No signs of distention. No rebound no guarding, and no masses palpated. Bowel sounds are normal. EXTREMITIES: FROM in all major joints. Redness, swelling, tenderness in bilateral upper and lower extremities. NEURO: Alert and oriented x 3. No acute neurological deficits. Speech is normal and follows commands. SKIN: Dry and warm Triage Information Reviewed: Yes Vital Signs On Initial Exam: Initial Vitals Temp Pulse Resp BP Pulse Ox 102.5 F 131 6 101/68 93 08/31/18 18:35 08/31/18 18:35 08/31/18 18:35 08/31/18 18:35 08/31/18 18:35 Vital Signs Reviewed: Yes Procedures - Central Line Right Jugular Central Line Lumen: triple Central Line Procedure: betadine prep, sterile drapes applied, sterile dressing applied Central Line Position: internal jugular (R) Anesthesia: Lidocaine - 2% cc's of anesthesia: 5 Complications: none Central Line Post Position: sutured, good blood return, position confirmed w/ CXR Diagnostics - Vital Signs Vital Signs Temp Pulse Resp BP Pulse Ox 08/31/18 18:35 102.5 F 131 6 101/68 93 - Laboratory Result Diagrams: 08/31/18 21:26 08/31/18 21:03 Lab Statement: Any lab studies that have been ordered have been reviewed, and results considered in the medical decision making process. - Radiology CXR Radiology Interpretation Completed By: ED Physician Summary of Radiographic Findings: CXR reveals Central line catheter tip in the distal superior vena cava. No PTX, right linear atelectasis. No acute infiltrate. ED physician has reviewed this radiology report. - EKG 2140 Cardiac Rate: NL EKG Rhythm: Sinus Rhythm - 95 BPM Summary of EKG Findings: An EKG, taken 2140, reveals NSR (95 BPM), Normal axis. Normal interval. No ischemic changes. Re-Evaluation - Re-Evaluation First Eval Re-Evaluation Time: 19:25 Change: Unchanged Comment: We informed the patient about her sepsis and the dangers of returning AMA. Patient was informed about the possibility of septic shock and . Patient states that she does not care what happens to her. Second Eval Re-Evaluation Time: 19:55 Change: Unchanged Comment: We discussed the results of the psych discussion with the patient. Patient continues to argue and wishes to leave AMA. As a result, patient will be sedated so that she can be treated. Course/Dx - Course Assessment/Plan: This patient is a 48 year old female brought in by ambulance to [facility] with a chief complaint of febrile illness and chills since earlier today. Patient was admitted in the 18 of August for skin infection/ cellulitis. Patient signed out AMA from the floor August 24 as she did not receive pain medication. She was given Keflex for 1 week. Patient lives with her friends house. Her friend called EMS for the patient today, against her will, as she was sitting on the floor, crying about how she was freezing. Patient wishes to leave the hospital and states that she simply doesnt care what happens. Patient currently attends a methadone clinic and has a hx of depression and anxiety. She has previously been admitted for psych here and in [place], [place]. We informed the patient about her sepsis and the dangers of returning AMA. Patient was informed about the possibility of septic shock and . Patient states that she does not care what happens to her. We discussed patient care with Dr. Nicole (Psych) at 194 and he states that the patient is not cleared to be sent home and must be committed for medical and psychiatric treatment. We discussed the results of the psych discussion with the patient. Patient continues to argue and wishes to leave AMA. As a result, patient will be sedated so that she can be treated. An EKG, taken 2140, reveals NSR (95 BPM) , Normal axis. Normal interval. No ischemic changes. CXR reveals Central line catheter tip in the distal superior vena cava. No PTX, right linear atelectasis. No acute infiltrate. ED physician has reviewed this radiology report. Bloodwork Obtained. Urinalysis Obtained. Central Line completed in right internal jugular. In the ED course the patient was given Haldol 5mg IM, Hydroxyzine 50mg IM, Ibuprofen 800mg PO, Ativan 2mg IM, NS 0.9% IV bolus, Vancomycin IVPB, Piperacillin IVPB, Reglan 10mg IV, Fentanyl 100mcg IV. We discussed patient care with Dr. Nicole (Psych) at 194 and he states that the patient is not cleared to be sent home and must be committed for medical and psychiatric treatment. We discussed patient care with Dr. Plunkett (Hospitalist) at 0 and they agreed to admit the patient. Patient will be admitted with a diagnosis of cellulitis, sepsis, and depression. The patient is agreeable to this plan. - Diagnoses Provider Diagnoses: Cellulitis, Sepsis, Depression - Provider Notifications Discussed Care Of Patient With: Jas iNcole - Psych Time Discussed With Above Provider: 19:55 - We discussed patient care with Dr. Nicole (Psych) at 194 and he states that the patient is not cleared to be sent home and must be committed for medical and psychiatric treatment. Instructed by Provider To: Admit As Inpatient - We discussed patient care with Dr. Plunkett (Hospitalist) at 0 and they agreed to admit the patient. - Critical Care Time Critical Care Time: 30-74 min - 50 minutes Discharge - Sign-Out/Discharge Documenting (check all that apply): Patient Departure - Discharge Plan Condition: Stable Disposition: ADMITTED TO [facility] Referrals: Jamal Schultz MD [Primary Care Provider] - - Attestation Statements Document Initiated by Scribe: Yes Documenting Scribe: Tracie Ghotra Provider For Whom Arslanibe is Documenting (Include Credential): Giselle Toth MD Scribe Attestation: Tracie Owens, scribed for Giselle Toth MD on 08/31/18 at 2242.
[2018-08-31] MEDS ORDERED: NS 0.9% 1000 ML*IV.FLUID IV ONE (19:30)
[2018-08-31] MEDS ORDERED: Ibuprofen TAB* 400 MG PO ONE (19:32)
[2018-08-31] MEDS ORDERED: Vancomycin(*) 1,000 MG in NS 0.9% 250 ML* 250 ML IVPB ONE (19:32)
[2018-08-31] MEDS ORDERED: Piperacillin/Tazobac ADVAN(*) 3.375 GM in NS 0.9% 100 ML* 100 ML IVPB ONE (19:33)
[2018-08-31] MEDS ORDERED: LORazepam INJ* 2 MG/ML 1 ML VIAL IM ONE (19:55)
[2018-08-31] MEDS ORDERED: Haloperidol INJ IV/IM* 5 MG/ML AMP IM ONE (19:55)
[2018-08-31] MEDS ORDERED: hydrOXYzine IM* 50 MG/ML VIAL IM ONE (19:56)
[2018-08-31] MEDS ORDERED: Lidocaine 2% EPI 1:200000 MPF*10-20 ML VIAL ONE (20:24)
[2018-08-31] MEDS ORDERED: Metoclopramide IV* 5 MG/ML 2 ML VIAL IV SLOW PU ONE (20:53)
[2018-08-31] MEDS ORDERED: fentaNYL* 50 MCG/ML 2 ML VIAL (100 MCG VIAL) IV SLOW PU ONE (20:53)
[2018-08-31 21:58] LABS: Hematocrit 27 % (35-47); Hemoglobin 8.8 g/dl (12.0-16.0); Mean Corpuscular HGB Conc 33 g/dl (31-36); Mean Corpuscular Hemoglobin 28 pg (27-31); Mean Corpuscular Volume 85 fL (80-97); Red Blood Count 3.14 10^6/ul (4.00-5.40); Red Cell Distribution Width 17 % (10.5-15); White Blood Count 11.1 10^3/ul (3.5-10.8)
[2018-08-31] MEDS ORDERED: LORazepam INJ* 2 MG/ML 1 ML VIAL IV PUSH ONE (22:02)
[2018-08-31 22:17] LABS: ABS Basophils 0.1 10^3/ul (0-0.2); ABS Eosinophils 0.2 10^3/ul (0-0.6); ABS Lymphocytes 1.4 10^3/ul (1.0-4.8); ABS Monocytes 0.8 10^3/ul (0-0.8); ABS Neutrophils 8.6 10^3/ul (1.5-7.7); ABS Nucleated RBC 0 10^3/ul; Eosinophil % 1.8 % (0-6); Lymphocyte % 12.5 % (25-47); Mean Platelet Volume 6.9 fL (7.4-10.4); Nucleated Red Blood Cells % 0.2; Platelet Count 554 10^3/ul (150-450)
[2018-08-31 22:18] LABS: EGFR Non-African American 23.5 (>60)
[2018-08-31 22:49] LABS: INR 1.1 (0.77-1.02)
[2018-08-31] MEDS ORDERED: Acetaminophen TAB* 325 MG PO PRN (22:49)
[2018-08-31] MEDS ORDERED: Ziprasidone IM INJ* 20 MG/ML VIAL IM ONE (22:57)
[2018-08-31] MEDS ORDERED: Zosyn per Pharmacy* NOTE FOLLOW UP SCH (23:00)
--- NOTE | 2018-08-31 23:03 | ADMNOTE ---
Subjective Date of Service: 09/01/18 Interval History: code status dnr this is admission h/p info got from pt's sig other hpi this is a 48 yr old wf with hx of polysubstance abuse hx of b/l leg cellulitis s /p extensive surgeries done in [facility] and [facility] who went ama 08/19 presented back with rigors and chills with worsening generalized weakness prior to admission. pt initially refused blood work and labs from er and was going to go ama ---> she verbalized to er staff that she did not want to live anymore --- > er called psy reg this suicidal ideation despite she does not have a plan for now---> she got a neck line placed by er and started zosyn/vanco ---> pt got ativan and fentanyl 100 mcg from er ---> pt was actively sleeping when this story writer came in to her room ---> history from pt's sig other who has been living with pt pt was d/cd with [facility] but family says she was not given any abx since ama aug 19 ---> just received her abx today but did not take any abx since aug 19 pmhx/pshx polysubstance abuse hx of ivda currently on methadone personality disorder chronic leg cellulitis with extensive debridement done on left thigh/ b/l legs fibromyalgia hx of depression cig smoker one ppd noncompliance social hx cig smoke one ppd former ivda lives with her surrogate sandro fhx denied any htn/dm/cva/cad except ? gallbladder dz Review of Systems - Measurements Intake and Output: Intake and Output Last 24 Hours 08/29/18 08/30/18 08/31/18 09/01/18 06:59 06:59 06:59 06:59 Intake Total 100 Balance 100 Weight 160 lb Intake: IV Fluids 100 - Review of Systems General Comments: pertinent as per hpi Objective Active Medications: Acetaminophen (Tylenol Tab*) 650 mg PO Q6H PRN PRN Reason: FEVER Gabapentin (Neurontin Cap(*)) 800 mg PO TID [facility] Heparin Sodium (Porcine) (Heparin Vial(*)) 5,000 units SUBCUT Q8HR [facility] Sodium Chloride (Ns 0.9% 1000 Ml*) 1,000 mls @ 125 mls/hr IV PER RATE [facility] Piperacillin Sod/Tazobactam (Sod 3.375 gm/ Sodium Chloride) 100 mls @ 200 mls/ hr IVPB Q8HR [facility] Vancomycin HCl 1,000 mg/ (Sodium Chloride) 250 mls @ 166.667 mls/hr IVPB .CONTINUE PROTOCOL [facility]; Protocol Methadone HCl (Dolophine Tab*) 128 mg PO DAILY [facility] Morphine Sulfate (Morphine Tab (Nf)) 15 mg PO Q6H PRN PRN Reason: PAIN Pharmacy Consult (Zosyn Per Pharmacy*) 1 note FOLLOW UP .ZOSYN PER PHARMACY [facility] Vilazodone HCl (Viibryd (Nf)) 40 mg PO DAILY [facility] Vital Signs - 8 hr 08/31/18 08/31/18 08/31/18 18:35 21:25 22:09 Temperature 102.5 F Pulse Rate 131 Respiratory 6 13 15 Rate Blood Pressure 101/68 (mmHg) O2 Sat by Pulse 93 Oximetry Oxygen Devices in Use Now: None Appearance: nad Eyes: No Scleral Icterus, PERRLA Ears/Nose/Mouth/Throat: - - oral mucosa dry Neck: NL Appearance and Movements; NL JVP, Trachea Midline, No Thyroid Enlargement, Masses Respiratory: Symmetrical Chest Expansion and Respiratory Effort, Clear to Auscultation Cardiovascular: NL Sounds; No Murmurs; No JVD, RRR Abdominal: NL Sounds; No Tenderness; No Distention Extremities: - - multiple stages and shape of healing wound seen on b/l legs, able to raise le b/l when asked Skin: - - different stages and shapes of healing wound seen on b/l legs Neurological: - - arousable but otherwise sleeping after ativan and fentanyl given from er Result Diagrams: 08/31/18 21:26 08/31/18 22:31 Assess/Plan/Problems-Billing Assessment: this is a 48 yr old wf with hx of ivda depression and chronic le cellulitis presented to er with rigors ---> initial wbc is 11.2 got zosyn and vanco from er pt initially wants to ama from er but accidently verbalized that she does not want to live anymore psy was called from er pt was given keflex when she ama 08/19 but non compliant with her abx ---> never took anything since aug 19 - Patient Problems (1) Bilateral lower leg cellulitis Current Visit: Yes Status: Acute Code(s): L03.116 - CELLULITIS OF LEFT LOWER LIMB; L03.115 - CELLULITIS OF RIGHT LOWER LIMB SNOMED Code(s): 833991637 Comment: restarted with zosyn and vanco wound cx to be done ? id consult after holiday (2) Polysubstance (including opioids) dependence with physiol dependence Current Visit: Yes Status: Acute Code(s): F19.20 - OTHER PSYCHOACTIVE SUBSTANCE DEPENDENCE, UNCOMPLICATED SNOMED Code(s): 00094269 Comment: supportive care has been on methadone prior to admission no furhter extra opoids ordered (3) Suicidal ideation Current Visit: Yes Status: Acute Code(s): R45.851 - SUICIDAL IDEATIONS SNOMED Code(s): 7579726 Comment: psy eval in am called in from er 1: 1 for now (4) Depression Current Visit: Yes Status: Acute Code(s): F32.9 - MAJOR DEPRESSIVE DISORDER , SINGLE EPISODE, UNSPECIFIED SNOMED Code(s): 06182869 Comment: psy eval in am (5) Cigarette nicotine dependence Current Visit: Yes Status: Acute Code(s): F17.210 - NICOTINE DEPENDENCE, CIGARETTES, UNCOMPLICATED SNOMED Code(s): 03980773 Comment: nicotine patch will be ordered for am (6) Leukocytosis Current Visit: Yes Status: Acute Code(s): D72.829 - ELEVATED WHITE BLOOD CELL COUNT, UNSPECIFIED SNOMED Code(s): 528569191 Comment: on zosyn and vanco moniter cbc trend
[2018-09-01] MEDS: Morphine ORAL.SOLN 10 mg* 2 MG/ML UDC 5 ml PO PRN ×2 (00:45→12:04)
[2018-09-01] MEDS: Piperacillin/Tazobac ADVAN(*) 3.375 GM in NS 0.9% 100 ML* 100 ML IVPB SCH ×3 (01:29→16:27)
[2018-09-01] MEDS: NS 0.9% 1000 ML* 1,000 ML IV SCH ×2 (01:29→13:29)
[2018-09-01] MEDS ORDERED: Vancomycin per Pharmacy* NOTE FOLLOW UP PRN (04:04)
[2018-09-01] MEDS: Heparin VIAL(*) 5000 UNITS/ML VIAL (FIVE THOUSAND) SUBCUT SCH ×3 (06:08→20:57)
[2018-09-01] MEDS ORDERED: Vancomycin(*) 1,000 MG in NS 0.9% 250 ML* 250 ML IVPB SCH (08:00)
[2018-09-01 08:07] LABS: ABS Basophils 0 10^3/ul (0-0.2); ABS Eosinophils 0.4 10^3/ul (0-0.6); ABS Lymphocytes 0.9 10^3/ul (1.0-4.8); ABS Monocytes 0.5 10^3/ul (0-0.8); ABS Neutrophils 2.8 10^3/ul (1.5-7.7); ABS Nucleated RBC 0 10^3/ul; Eosinophil % 8.4 % (0-6); Hematocrit 27 % (35-47); Hemoglobin 8.9 g/dl (12.0-16.0); Lymphocyte % 19.3 % (25-47); Mean Corpuscular HGB Conc 33 g/dl (31-36); Mean Corpuscular Hemoglobin 29 pg (27-31); Mean Corpuscular Volume 86 fL (80-97); Mean Platelet Volume 6.7 fL (7.4-10.4); Nucleated Red Blood Cells % 0.1; Platelet Count 401 10^3/ul (150-450); Red Cell Distribution Width 18 % (10.5-15); White Blood Count 4.7 10^3/ul (3.5-10.8)
[2018-09-01 08:10] LABS: INR 1.02 (0.77-1.02)
[2018-09-01] MEDS: Gabapentin CAP(*) 400 MG PO SCH (08:11)
[2018-09-01] MEDS: Methadone TAB* 10 MG PO SCH (08:11)
[2018-09-01] MEDS: CMCS: Vilazodone (NF) 40 MG TAB PO SCH (08:11)
[2018-09-01 08:15] LABS: EGFR Non-African American 33.4 (>60)
[2018-09-01] MEDS: Acetaminophen TAB* 325 MG PO SCH ×2 (09:09→20:56)
[2018-09-01] MEDS: Omeprazole CAP* 20 MG PO SCH (09:09)
[2018-09-01] MEDS: Vancomycin(*) 750 MG in NS 0.9% 250 ML* 250 ML IVPB SCH ×3 (09:27→21:01)
[2018-09-01] MEDS: Nystatin TOP POWDER* 15 GM BTL TOPICAL SCH ×3 (11:07→21:41)
[2018-09-01 12:51] LABS: Urine Appearance Cloudy; Urine Blood 1+ (Negative); Urine Color Yellow; Urine Ketones Negative (Negative); Urine Protein Negative (Negative); Urine Red Blood Cell Trace(0-2/hpf) (Absent); Urine Specific Gravity 1.009 (1.010-1.030); Urine Urobilinogen Negative (Negative); Urine White Blood Cell Trace(0-5/hpf) (Absent)
[2018-09-01] MEDS: Ketorolac INJ* 15 MG/ML 1 ML VIAL IV PUSH PRN (13:29)
[2018-09-01] MEDS ORDERED: Nicotine Inhaler* 10 MG AMP INH PRN (14:52)
--- NOTE | 2018-09-01 14:57 | PN ---
Subjective Date of Service: 09/01/18 Interval History: Pt seen and examined. Meds and labs reviewed. CC: Pt complaining of wound pain. However, when examiner came in the room, pt appeared comfortable talking to sitter. Pt requesting to increase pain meds, however, it was explained to her that given her polysubstance abuse history, her current pain meds, as well as her blood pressure being low, not advisable at this time until other auxillary pain meds optimized. It was explained to her that she will need to be evaluated by psych and is currently not eligible to S/O AMA. ROS: Denied GAY/dizziness, F/C, N/V, CP, SOB, increased cough, sputum production , abd pain, diarrhea, constipation, dysuria, throat pain, and new skin lesions. The rest of the 14 point ROS are unremarkable. PHYSICAL EXAM: GEN APPEARANCE: Awake, not in acute distress HEENT: NC/AT, PERRLA, moist oral mucosa, (-) throat erythema NECK: Soft, supple, (-) cervical LAD, (-)JVD HEART: S1S2 WNL, RRR, No MRG CHEST: CTA, BL, GAE, No W/R/R ABD: Soft, ND/NT, NABS 4x Q EXT: No C/C/E SKIN: Warm to touch, various extremity wounds in various stages of healing; all appear to be clean PSYCH: No active psychosis, hallucinations, depression, SI/HI Objective Active Medications: Acetaminophen (Tylenol Tab*) 650 mg PO Q6H PRN PRN Reason: FEVER Acetaminophen (Tylenol Tab*) 975 mg PO BID [facility] Last Admin: 09/01/18 09:09 Dose: Not Given Gabapentin (Neurontin Cap(*)) 400 mg PO DAILY [facility] Last Admin: 09/01/18 08:11 Dose: 400 mg Heparin Sodium (Porcine) (Heparin Vial(*)) 5,000 units SUBCUT Q8HR [facility] Last Admin: 09/01/18 13:20 Dose: 5,000 units Sodium Chloride (Ns 0.9% 1000 Ml*) 1,000 mls @ 125 mls/hr IV PER RATE [facility] Last Admin: 09/01/18 13:29 Dose: 125 mls/hr Piperacillin Sod/Tazobactam (Sod 3.375 gm/ Sodium Chloride) 100 mls @ 25 mls/ hr IVPB Q8H [facility] Last Admin: 09/01/18 08:18 Dose: 25 mls/hr Vancomycin HCl 750 mg/ Sodium (Chloride) 250 mls @ 166.667 mls/hr IVPB Q12H [facility] Last Admin: 09/01/18 09:27 Dose: 166.667 mls/hr Ketorolac Tromethamine (Toradol Inj*) 15 mg IV PUSH Q6H PRN PRN Reason: PAIN Stop: 09/04/18 08:30 Last Admin: 09/01/18 13:29 Dose: 15 mg Methadone HCl (Dolophine Tab*) 120 mg PO DAILY [facility] Last Admin: 09/01/18 08:11 Dose: 120 mg Morphine Sulfate (Morphine Oral.Soln 10 Mg*) 15 mg PO Q6H PRN PRN Reason: PAIN Last Admin: 09/01/18 12:04 Dose: 15 mg Nicotine (Nicotine Inhaler*) 10 mg INH Q2H PRN PRN Reason: CRAVING Nicotine (Nicotine Patch 21 Mg/24 Hr*) 1 patch TRANSDERM DAILY@0800 [facility] Nystatin (Nystatin Top Powder*) 1 applic TOPICAL TID [facility] Last Admin: 09/01/18 13:20 Dose: 1 applic Omeprazole (Prilosec Cap*) 20 mg PO DAILY [facility] Last Admin: 09/01/18 09:09 Dose: Not Given Pharmacy Consult (Zosyn Per Pharmacy*) 1 note FOLLOW UP .ZOSYN PER PHARMACY [facility] Pharmacy Consult (Vancomycin Per Pharmacy*) 1 note FOLLOW UP . PRN PRN Reason: PER PROTOCOL Pharmacy Profile Note (Vancomycin Trough Check) 1 note FOLLOW UP .ENTER TIME ONE Stop: 09/02/18 09:31 Pharmacy Profile Note (Nicotine Patch Removal Note*) 1 note FOLLOW UP 2100 [facility] Vilazodone HCl (Viibryd (Nf)) 40 mg PO DAILY [facility] Last Admin: 09/01/18 08:11 Dose: 40 mg Vital Signs - 8 hr 09/01/18 09/01/18 09/01/18 08:01 08:03 08:11 Temperature 97.6 F Pulse Rate 67 72 Respiratory 12 14 14 Rate Blood Pressure 99/69 106/72 (mmHg) O2 Sat by Pulse 95 Oximetry 09/01/18 09/01/18 09/01/18 08:45 09:39 09:54 Temperature Pulse Rate Respiratory 14 16 15 Rate Blood Pressure (mmHg) O2 Sat by Pulse 96 Oximetry 09/01/18 09/01/18 09/01/18 11:50 11:58 12:04 Temperature 97.2 F Pulse Rate 68 Respiratory 18 16 Rate Blood Pressure 87/46 112/70 (mmHg) O2 Sat by Pulse 97 Oximetry 09/01/18 09/01/18 12:29 13:21 Temperature Pulse Rate Respiratory 15 Rate Blood Pressure 82/46 (mmHg) O2 Sat by Pulse Oximetry Oxygen Devices in Use Now: None Result Diagrams: 09/01/18 07:35 09/01/18 07:35 Assess/Plan/Problems-Billing Assessment: this is a 48 yr old wf with hx of ivda depression and chronic le cellulitis presented to er with rigors ---> initial wbc is 11.2 got zosyn and vanco from er pt initially wants to ama from er but accidently verbalized that she does not want to live anymore psy was called from er pt was given keflex when she ama 08/19 but non compliant with her abx ---> never took anything since aug 19 - Patient Problems (1) Bilateral lower leg cellulitis Current Visit: Yes Status: Acute Code(s): L03.116 - CELLULITIS OF LEFT LOWER LIMB; L03.115 - CELLULITIS OF RIGHT LOWER LIMB SNOMED Code(s): 464981978 Comment: -Continue Zosyn and Vanco -Will await results of cultures -Leukocytosis normalizedwill continue to follow -? id consult after holiday (2) Polysubstance (including opioids) dependence with physiol dependence Current Visit: Yes Status: Acute Code(s): F19.20 - OTHER PSYCHOACTIVE SUBSTANCE DEPENDENCE, UNCOMPLICATED SNOMED Code(s): 58262526 Comment: -supportive care -Given above history as well as BP being on low normal side, advised against increasing opiates at this time given pt appeared comfortable when she did not notice examiners presence on my initital visit -Continue Methadone and PRN Morphine -Placed pt on Tylenol 1000 mg PO BID and PRN Ketorolac, low dose x 3 days only -No furhter extra opoids ordered (3) Suicidal ideation Current Visit: Yes Status: Acute Code(s): R45.851 - SUICIDAL IDEATIONS SNOMED Code(s): 3957069 Comment: -Continue 1: 1 for now -Awaiting official psych input (4) Depression Current Visit: Yes Status: Acute Code(s): F32.9 - MAJOR DEPRESSIVE DISORDER , SINGLE EPISODE, UNSPECIFIED SNOMED Code(s): 44136244 Comment: -As above (5) Cigarette nicotine dependence Current Visit: Yes Status: Acute Code(s): F17.210 - NICOTINE DEPENDENCE, CIGARETTES, UNCOMPLICATED SNOMED Code(s): 76965155 Comment: -Advised lifestyle modifications -Will place on Nicotine patch and PRN Nicotine inhalers (6) DVT prophylaxis Current Visit: No Status: Acute Code(s): KYI7136 - SNOMED Code(s): 976957221 Comment: -Continue Heparin SQq8H Status and Disposition: -As above
[2018-09-01] MEDS ORDERED: Mouth Piece, Nicotine* 1 EACH CARTRIDGE INH ONE (15:00)
[2018-09-01] MEDS: Nicotine Patch Removal NOTE FOLLOW UP SCH (20:57)
[2018-09-02] MEDS: Piperacillin/Tazobac ADVAN(*) 3.375 GM in NS 0.9% 100 ML* 100 ML IVPB SCH ×4 (02:03→22:34)
[2018-09-02] MEDS: Heparin VIAL(*) 5000 UNITS/ML VIAL (FIVE THOUSAND) SUBCUT SCH ×3 (06:34→20:30)
[2018-09-02 06:40] LABS: ABS Basophils 0.1 10^3/ul (0-0.2); ABS Eosinophils 0.4 10^3/ul (0-0.6); ABS Lymphocytes 0.9 10^3/ul (1.0-4.8); ABS Monocytes 0.5 10^3/ul (0-0.8); ABS Neutrophils 2.8 10^3/ul (1.5-7.7); ABS Nucleated RBC 0 10^3/ul; Hematocrit 27 % (35-47); Hemoglobin 8.8 g/dl (12.0-16.0); Lymphocyte % 19.6 % (25-47); Mean Corpuscular HGB Conc 33 g/dl (31-36); Mean Corpuscular Hemoglobin 29 pg (27-31); Mean Corpuscular Volume 86 fL (80-97); Mean Platelet Volume 6.6 fL (7.4-10.4); Nucleated Red Blood Cells % 0.1; Platelet Count 375 10^3/ul (150-450); Red Blood Count 3.09 10^6/ul (4.00-5.40); Red Cell Distribution Width 17 % (10.5-15); White Blood Count 4.7 10^3/ul (3.5-10.8)
[2018-09-02 06:54] LABS: EGFR Non-African American 47.5 (>60)
[2018-09-02] MEDS: Nicotine PATCH 21 MG/24 HR* PATCH TRANSDERM SCH (07:55)
[2018-09-02] MEDS: Gabapentin CAP(*) 400 MG PO SCH ×4 (07:56→20:31)
[2018-09-02] MEDS: Nystatin TOP POWDER* 15 GM BTL TOPICAL SCH ×3 (07:56→20:30)
[2018-09-02] MEDS: Omeprazole CAP* 20 MG PO SCH (07:56)
[2018-09-02] MEDS: Acetaminophen TAB* 325 MG PO SCH ×2 (07:57→20:37)
[2018-09-02] MEDS: CMCS: Vilazodone (NF) 40 MG TAB PO SCH (07:58)
[2018-09-02] MEDS: Methadone TAB* 10 MG PO SCH (07:58)
[2018-09-02] MEDS: Vancomycin(*) 750 MG in NS 0.9% 250 ML* 250 ML IVPB SCH (08:03)
[2018-09-02] MEDS ORDERED: Magnesium Sulf 4 GM/100 ML IV* 4,000 MG/100 ML BAG IVPB ONE (08:54)
[2018-09-02] MEDS ORDERED: Vancomycin Trough Check NOTE FOLLOW UP ONE (09:30)
[2018-09-02] MEDS: NS 0.9% 1000 ML* 1,000 ML IV SCH (10:23)
[2018-09-02] MEDS: HYDROmorphone TAB* 4 MG PO PRN ×2 (12:04→18:15)
--- NOTE | 2018-09-02 13:30 | CONSULT ---
Identification - Patient Identification Reason for Psychiatric Consultation: Other - Capacity to make informed medical decisions, includig signing out against medical advice. -: Patient is a 48 year old, F admitted on 08/31/18. History - Objective HPI: Ms. Platt is a 48-year-old tenuously domiciled, unemployed female with a history of polysubstance dependence, opioid dependence, mood disorder, consideration for borderline personality disorder and suicidal behavior. She was brought in by ambulance and was readmitted to the hospitalist service on 08/31/18 for treatment of febrile illness. She was previously admitted to the hospitalist service from 08/18/18 to 08/24/18 when she signed out AMA. "I most certainly am not suicidal! Ms Platt complains of homesickness after repeated medical admissions for treatment of cellulitis. She feels that her pain is not adequately controlled in this setting. She asserts that her primary care physician had prescribed oral antibiotics that she intends to continue taking. She understands her condition may worsen, lead to drug resistant infection, sepsis and . She affirms she feels safe and good about being alive. She denies emotional pain or unmanageable anxiety. She avidly denies having thoughts of suicide or urges to self-harm. She says he does not see obstacles to routine care / or emergency help if needed again. Exam Appearance: Healthy Appearing Hygiene: Normal Grooming: Fairly Well Kept Psychomotor Activities: Normal Exhibits Abnormal Movement: No Attitude and Relatedness: Cooperative Eye Contact: Fair - Speech Quality: Unpressured Latencies: Normal Quantity: Copious Patient's Decription of Mood: "Fine" Observed Affect: Non-labile Affect Consistent with: Euthymia Patient's Thought Process: Coherent, Goal Directed Thought Content: No Passive Wish, No Suicidal Planning, No Homicidal Ideation, No Paranoid Ideation Experiencing Hallucinations: No, Sensorium is Clear Level of Consciousness: Alert Orientation: Yes Intact Impulse Control: Intact Insight and Judgement: Poor Impression - Impression Clinical Impression: [id number] female with history of psychiatric hospitalizations, polysubstance dependence, opioid dependence, substance-induced mood symptoms, borderline personality functioning, self-injury, and suicidal behavior who was admitted for treatment of febrile illness following a recent admission for same that ended in her signing herself-out AMA. Consult was requested due to concern about suicidal ideation and to assess capacity to make informed medical decision. On interview she was alert, oriented, cooperative, well-related, with a good relatively good understanding of her condition, treatment, risks of leaving AMA , including . The patient has capacity to make informed medical decision, including signing out AMA, her involuntary commitment cannot be justified. Inpatient DSM-V Dx: F11.20 Merits Inpatient Hospitalization: No Plan - Treatment Plan Treatment Plan: Follow-up with Methadone Maintenance Program at [facility] after discharge Continued Medication Management: Continue Outpt Medication Medications: Current Medications Acetaminophen (Tylenol Tab*) 650 mg PO Q6H PRN PRN Reason: FEVER Acetaminophen (Tylenol Tab*) 975 mg PO BID [facility] Last Admin: 09/02/18 07:57 Dose: Not Given Gabapentin (Neurontin Cap(*)) 800 mg PO TID [facility] Last Admin: 09/02/18 12:04 Dose: 800 mg Heparin Sodium (Porcine) (Heparin Vial(*)) 5,000 units SUBCUT Q8HR [facility] Last Admin: 09/02/18 12:04 Dose: 5,000 units Hydromorphone HCl (Dilaudid Tab*) 4 mg PO Q6H PRN PRN Reason: PAIN Last Admin: 09/02/18 12:04 Dose: 4 mg Sodium Chloride (Ns 0.9% 1000 Ml*) 1,000 mls @ 125 mls/hr IV PER RATE [facility] Last Admin: 09/02/18 10:23 Dose: 125 mls/hr Piperacillin Sod/Tazobactam (Sod 3.375 gm/ Sodium Chloride) 100 mls @ 25 mls/ hr IVPB Q8H [facility] Last Admin: 09/02/18 08:03 Dose: Not Given Vancomycin HCl 750 mg/ Sodium (Chloride) 250 mls @ 166.667 mls/hr IVPB Q12H [facility] Last Admin: 09/02/18 08:03 Dose: Not Given Ketorolac Tromethamine (Toradol Inj*) 15 mg IV PUSH Q6H PRN PRN Reason: PAIN Stop: 09/04/18 08:30 Last Admin: 09/01/18 13:29 Dose: 15 mg Methadone HCl (Dolophine Tab*) 120 mg PO DAILY [facility] Last Admin: 09/02/18 07:58 Dose: 120 mg Nicotine (Nicotine Inhaler*) 10 mg INH Q2H PRN PRN Reason: CRAVING Nicotine (Nicotine Patch 21 Mg/24 Hr*) 1 patch TRANSDERM DAILY@0800 [facility] Last Admin: 09/02/18 07:55 Dose: Not Given Nystatin (Nystatin Top Powder*) 1 applic TOPICAL TID [facility] Last Admin: 09/02/18 12:04 Dose: 1 applic Omeprazole (Prilosec Cap*) 20 mg PO DAILY [facility] Last Admin: 09/02/18 07:56 Dose: 20 mg Pharmacy Consult (Zosyn Per Pharmacy*) 1 note FOLLOW UP .ZOSYN PER PHARMACY [facility] Pharmacy Consult (Vancomycin Per Pharmacy*) 1 note FOLLOW UP . PRN PRN Reason: PER PROTOCOL Pharmacy Profile Note (Nicotine Patch Removal Note*) 1 note FOLLOW UP 2099 [facility] Last Admin: 09/01/18 20:57 Dose: Not Given Vilazodone HCl (Viibryd (Nf)) 40 mg PO DAILY [facility] Last Admin: 09/02/18 07:58 Dose: 40 mg - Discharge Plan Discharge Plan: Outpatient Follow Up Outpatient Program: [facility]
[2018-09-02] MEDS: Ketorolac INJ* 15 MG/ML 1 ML VIAL IV PUSH PRN ×2 (14:20→20:28)
--- NOTE | 2018-09-02 15:05 | PN ---
Subjective Date of Service: 09/02/18 Interval History: Pt seen and examined. Meds and labs reviewed. Pt has been refusing antibiotics last night. Spoke with both pt and son regarding pain management and informed them that pts current regimen has been recommended by a pain specialist, Dr. Meng. I have currently declined pts request for IV Dilaudid and pt to try PO. CC: Pain PHYSICAL EXAM: GEN APPEARANCE: Awake, not in acute distress HEENT: NC/AT, PERRLA, moist oral mucosa, (-) throat erythema NECK: Soft, supple, (-) cervical LAD, (-)JVD HEART: S1S2 WNL, RRR, No MRG CHEST: CTA, BL, GAE, No W/R/R ABD: Soft, ND/NT, NABS 4x Q EXT: No C/C/E SKIN: Warm to touch, various extremity wounds in various stages of healing; all appear to be clean PSYCH: No active psychosis, hallucinations, depression, SI/HI Objective Active Medications: Acetaminophen (Tylenol Tab*) 650 mg PO Q6H PRN PRN Reason: FEVER Acetaminophen (Tylenol Tab*) 975 mg PO BID [facility] Last Admin: 09/02/18 07:57 Dose: Not Given Gabapentin (Neurontin Cap(*)) 800 mg PO TID [facility] Last Admin: 09/02/18 14:21 Dose: 800 mg Heparin Sodium (Porcine) (Heparin Vial(*)) 5,000 units SUBCUT Q8HR [facility] Last Admin: 09/02/18 12:04 Dose: 5,000 units Hydromorphone HCl (Dilaudid Tab*) 4 mg PO Q6H PRN PRN Reason: PAIN Last Admin: 09/02/18 12:04 Dose: 4 mg Sodium Chloride (Ns 0.9% 1000 Ml*) 1,000 mls @ 125 mls/hr IV PER RATE [facility] Last Admin: 09/02/18 10:23 Dose: 125 mls/hr Piperacillin Sod/Tazobactam (Sod 3.375 gm/ Sodium Chloride) 100 mls @ 25 mls/ hr IVPB Q8HR [facility] Last Admin: 09/02/18 14:22 Dose: 25 mls/hr Vancomycin HCl 750 mg/ Sodium (Chloride) 250 mls @ 166.667 mls/hr IVPB Q8H [facility] Vancomycin HCl 1,000 mg/ (Sodium Chloride) 250 mls @ 166.667 mls/hr IVPB ONCE ONE Stop: 09/03/18 07:29 Ketorolac Tromethamine (Toradol Inj*) 15 mg IV PUSH Q6H PRN PRN Reason: PAIN Stop: 09/04/18 08:30 Last Admin: 09/02/18 14:20 Dose: 15 mg Methadone HCl (Dolophine Tab*) 120 mg PO DAILY [facility] Last Admin: 09/02/18 07:58 Dose: 120 mg Nicotine (Nicotine Inhaler*) 10 mg INH Q2H PRN PRN Reason: CRAVING Nicotine (Nicotine Patch 21 Mg/24 Hr*) 1 patch TRANSDERM DAILY@0800 [facility] Last Admin: 09/02/18 07:55 Dose: Not Given Nystatin (Nystatin Top Powder*) 1 applic TOPICAL TID [facility] Last Admin: 09/02/18 12:04 Dose: 1 applic Omeprazole (Prilosec Cap*) 20 mg PO DAILY [facility] Last Admin: 09/02/18 07:56 Dose: 20 mg Pharmacy Consult (Zosyn Per Pharmacy*) 1 note FOLLOW UP .ZOSYN PER PHARMACY [facility] Pharmacy Consult (Vancomycin Per Pharmacy*) 1 note FOLLOW UP . PRN PRN Reason: PER PROTOCOL Pharmacy Profile Note (Nicotine Patch Removal Note*) 1 note FOLLOW UP 2099 [facility] Last Admin: 09/01/18 20:57 Dose: Not Given Pharmacy Profile Note (Vancomycin Trough Check) 1 note FOLLOW UP ONCE ONE Stop: 09/04/18 05:31 Vilazodone HCl (Viibryd (Nf)) 40 mg PO DAILY [facility] Last Admin: 09/02/18 07:58 Dose: 40 mg Vital Signs - 8 hr 09/02/18 09/02/18 09/02/18 07:27 07:50 07:56 Temperature 98.2 F Pulse Rate 67 Respiratory 16 16 Rate Blood Pressure 125/69 (mmHg) O2 Sat by Pulse 96 Oximetry 09/02/18 09/02/18 09/02/18 07:58 08:13 09:36 Temperature Pulse Rate Respiratory 16 16 16 Rate Blood Pressure (mmHg) O2 Sat by Pulse 97 Oximetry 09/02/18 09/02/18 09/02/18 09:37 11:40 11:55 Temperature 97.8 F Pulse Rate 61 Respiratory 16 17 Rate Blood Pressure 94/56 112/76 (mmHg) O2 Sat by Pulse 94 Oximetry 09/02/18 09/02/18 09/02/18 12:04 13:40 14:21 Temperature Pulse Rate Respiratory 16 16 16 Rate Blood Pressure (mmHg) O2 Sat by Pulse Oximetry Oxygen Devices in Use Now: None Result Diagrams: 09/02/18 06:20 09/02/18 06:20 Microbiology and Other Data: Microbiology 09/01/18 12:40 Urine Culture - Final Urine No Growth (<1,000 CFU/mL) 09/01/18 06:42 Aerobic Blood Culture - Preliminary Blood Venous No Growth Day 1 Anaerobic Blood Culture - Preliminary No Growth Day 1 08/31/18 20:54 Aerobic Blood Culture - Preliminary Blood Venous No Growth Day 1 Anaerobic Blood Culture - Preliminary No Growth Day 1 Assess/Plan/Problems-Billing Assessment: this is a 48 yr old wf with hx of ivda depression and chronic le cellulitis presented to er with rigors ---> initial wbc is 11.2 got zosyn and vanco from er pt initially wants to ama from er but accidently verbalized that she does not want to live anymore psy was called from er pt was given keflex when she ama 08/19 but non compliant with her abx ---> never took anything since aug 19 - Patient Problems (1) Bilateral lower leg cellulitis Current Visit: Yes Status: Acute Code(s): L03.116 - CELLULITIS OF LEFT LOWER LIMB; L03.115 - CELLULITIS OF RIGHT LOWER LIMB SNOMED Code(s): 891482934 Comment: -Continue Zosyn and Vanco -Will await results of cultures -Leukocytosis normalizedwill continue to follow -? id consult after holiday -Blood Cultures (-) x1 day -For wound consult (2) Polysubstance (including opioids) dependence with physiol dependence Current Visit: Yes Status: Acute Code(s): F19.20 - OTHER PSYCHOACTIVE SUBSTANCE DEPENDENCE, UNCOMPLICATED SNOMED Code(s): 14444135 Comment: -supportive care -Given above history as well as BP being on low normal side, advised against increasing opiates at this time given pt appeared comfortable when she did not notice examiners presence on my initital visit -Continue Methadone, Tylenol BID and PRN, as well as PRN Ketorolac -D/W Dr. Amanda who is familiar with pt who suggested to replace PRN PO Morphine to a co-equivalent PO Dilaudid -No furhther extra opoids ordered (3) Suicidal ideation Current Visit: Yes Status: Acute Code(s): R45.851 - SUICIDAL IDEATIONS SNOMED Code(s): 9932285 Comment: -Appreciate psych sungpt has full capacity to decide for herself -D/C 1: 1 (4) Depression Current Visit: Yes Status: Acute Code(s): F32.9 - MAJOR DEPRESSIVE DISORDER , SINGLE EPISODE, UNSPECIFIED SNOMED Code(s): 43552886 Comment: -As above (5) Cigarette nicotine dependence Current Visit: Yes Status: Acute Code(s): F17.210 - NICOTINE DEPENDENCE, CIGARETTES, UNCOMPLICATED SNOMED Code(s): 30610591 Comment: -Advised lifestyle modifications -Continue Nicotine patch and PRN Nicotine inhalers (6) DVT prophylaxis Current Visit: No Status: Acute Code(s): COP5268 - SNOMED Code(s): 723100566 Comment: -Continue Heparin SQq8H Status and Disposition: -For possible D/C in AM
[2018-09-02] MEDS ORDERED: Vancomycin(*) 1,000 MG in NS 0.9% 250 ML* 250 ML IVPB ONE (19:00)
[2018-09-02] MEDS: Nicotine Patch Removal NOTE FOLLOW UP SCH (20:30)
[2018-09-03] MEDS: HYDROmorphone TAB* 4 MG PO PRN ×4 (00:19→20:33)
[2018-09-03] MEDS: Vancomycin(*) 750 MG in NS 0.9% 250 ML* 250 ML IVPB SCH ×3 (03:10→20:31)
[2018-09-03] MEDS: Heparin VIAL(*) 5000 UNITS/ML VIAL (FIVE THOUSAND) SUBCUT SCH ×3 (06:37→20:40)
[2018-09-03] MEDS: Piperacillin/Tazobac ADVAN(*) 3.375 GM in NS 0.9% 100 ML* 100 ML IVPB SCH ×3 (06:37→22:52)
[2018-09-03] MEDS: Nicotine PATCH 21 MG/24 HR* PATCH TRANSDERM SCH (09:06)
[2018-09-03] MEDS: CMCS: Vilazodone (NF) 40 MG TAB PO SCH (09:07)
[2018-09-03] MEDS: Omeprazole CAP* 20 MG PO SCH (09:07)
[2018-09-03] MEDS: Gabapentin CAP(*) 400 MG PO SCH ×3 (09:07→20:34)
[2018-09-03] MEDS: Methadone TAB* 10 MG PO SCH (09:08)
[2018-09-03] MEDS: Acetaminophen TAB* 325 MG PO SCH ×2 (09:08→20:21)
[2018-09-03] MEDS: Nystatin TOP POWDER* 15 GM BTL TOPICAL SCH ×3 (09:12→20:37)
[2018-09-03] MEDS: Ketorolac INJ* 15 MG/ML 1 ML VIAL IV PUSH PRN ×2 (09:19→17:59)
--- NOTE | 2018-09-03 16:23 | PN ---
Subjective Date of Service: 09/03/18 Interval History: Pt seen and examined. Meds and labs reviewed. CC: N/A ROS: Denied GAY/dizziness, F/C, N/V, CP, SOB, increased cough, sputum production , abd pain, diarrhea, constipation, dysuria, myalgias, arthralgias, throat pain , and new skin lesions. The rest of the 14 point ROS are unremarkable. PHYSICAL EXAM: GEN APPEARANCE: Awake, not in acute distress HEENT: NC/AT, PERRLA, moist oral mucosa, (-) throat erythema NECK: Soft, supple, (-) cervical LAD, (-)JVD HEART: S1S2 WNL, RRR, No MRG CHEST: CTA, BL, GAE, No W/R/R ABD: Soft, ND/NT, NABS 4x Q EXT: No C/C/E SKIN: Warm to touch, various extremity wounds in various stages of healing; all appear to be clean PSYCH: No active psychosis, hallucinations, depression, SI/HI Objective Active Medications: Acetaminophen (Tylenol Tab*) 650 mg PO Q6H PRN PRN Reason: FEVER Acetaminophen (Tylenol Tab*) 975 mg PO BID [facility] Last Admin: 09/03/18 09:08 Dose: Not Given Gabapentin (Neurontin Cap(*)) 800 mg PO TID [facility] Last Admin: 09/03/18 14:13 Dose: 800 mg Heparin Sodium (Porcine) (Heparin Vial(*)) 5,000 units SUBCUT Q8HR [facility] Last Admin: 09/03/18 14:14 Dose: 5,000 units Hydromorphone HCl (Dilaudid Tab*) 4 mg PO Q6H PRN PRN Reason: PAIN Last Admin: 09/03/18 14:14 Dose: 4 mg Sodium Chloride (Ns 0.9% 1000 Ml*) 1,000 mls @ 125 mls/hr IV PER RATE [facility] Last Admin: 09/02/18 10:23 Dose: 125 mls/hr Piperacillin Sod/Tazobactam (Sod 3.375 gm/ Sodium Chloride) 100 mls @ 25 mls/ hr IVPB Q8HR [facility] Last Admin: 09/03/18 14:13 Dose: 25 mls/hr Vancomycin HCl 750 mg/ Sodium (Chloride) 250 mls @ 166.667 mls/hr IVPB Q8H [facility] Last Admin: 09/03/18 11:20 Dose: 166.667 mls/hr Ketorolac Tromethamine (Toradol Inj*) 15 mg IV PUSH Q6H PRN PRN Reason: PAIN Stop: 09/04/18 08:30 Last Admin: 09/03/18 09:19 Dose: 15 mg Methadone HCl (Dolophine Tab*) 120 mg PO DAILY [facility] Last Admin: 09/03/18 09:08 Dose: 120 mg Nicotine (Nicotine Inhaler*) 10 mg INH Q2H PRN PRN Reason: CRAVING Nicotine (Nicotine Patch 21 Mg/24 Hr*) 1 patch TRANSDERM DAILY@0800 [facility] Last Admin: 09/03/18 09:06 Dose: Not Given Nystatin (Nystatin Top Powder*) 1 applic TOPICAL TID [facility] Last Admin: 09/03/18 14:14 Dose: 1 applic Omeprazole (Prilosec Cap*) 20 mg PO DAILY [facility] Last Admin: 09/03/18 09:07 Dose: 20 mg Pharmacy Consult (Zosyn Per Pharmacy*) 1 note FOLLOW UP .ZOSYN PER PHARMACY [facility] Pharmacy Consult (Vancomycin Per Pharmacy*) 1 note FOLLOW UP . PRN PRN Reason: PER PROTOCOL Pharmacy Profile Note (Nicotine Patch Removal Note*) 1 note FOLLOW UP 2099 [facility] Last Admin: 09/02/18 20:30 Dose: 1 note Pharmacy Profile Note (Vancomycin Trough Check) 1 note FOLLOW UP ONCE ONE Stop: 09/03/18 18:31 Vilazodone HCl (Viibryd (Nf)) 40 mg PO DAILY [facility] Last Admin: 09/03/18 09:07 Dose: 40 mg Vital Signs - 8 hr 09/03/18 09/03/18 09/03/18 08:35 09:07 09:08 Temperature Pulse Rate Respiratory 18 17 17 Rate Blood Pressure (mmHg) O2 Sat by Pulse Oximetry 09/03/18 09/03/18 09/03/18 10:52 11:07 14:13 Temperature 97.4 F Pulse Rate 74 Respiratory 18 17 17 Rate Blood Pressure 117/77 (mmHg) O2 Sat by Pulse 93 Oximetry 09/03/18 14:14 Temperature Pulse Rate Respiratory 17 Rate Blood Pressure (mmHg) O2 Sat by Pulse Oximetry Oxygen Devices in Use Now: None Result Diagrams: 09/02/18 06:20 09/02/18 06:20 Microbiology and Other Data: Microbiology 11/22/18 12:40 Urine Culture - Final Urine No Growth (<1,000 CFU/mL) 09/01/18 06:42 Aerobic Blood Culture - Preliminary Blood Venous No Growth Day 1 Anaerobic Blood Culture - Preliminary No Growth Day 1 08/31/18 20:54 Aerobic Blood Culture - Preliminary Blood Venous No Growth Day 1 Anaerobic Blood Culture - Preliminary No Growth Day 1 Assess/Plan/Problems-Billing Assessment: this is a 48 yr old wf with hx of ivda depression and chronic le cellulitis presented to er with rigors ---> initial wbc is 11.2 got zosyn and vanco from er pt initially wants to ama from er but accidently verbalized that she does not want to live anymore psy was called from er pt was given keflex when she ama 08/19 but non compliant with her abx ---> never took anything since aug 19 - Patient Problems (1) Bilateral lower leg cellulitis Current Visit: Yes Status: Acute Code(s): L03.116 - CELLULITIS OF LEFT LOWER LIMB; L03.115 - CELLULITIS OF RIGHT LOWER LIMB SNOMED Code(s): 111784378 Comment: -Continue Zosyn and Vanco -Will await results of cultures -Leukocytosis normalizedwill continue to follow -? id consult after holiday -Blood Cultures (-) x2 days---Consider narrowing IV abx therapy in 1-2 days -For wound consult (2) Polysubstance (including opioids) dependence with physiol dependence Current Visit: Yes Status: Acute Code(s): F19.20 - OTHER PSYCHOACTIVE SUBSTANCE DEPENDENCE, UNCOMPLICATED SNOMED Code(s): 82710797 Comment: -supportive care -Given above history as well as BP being on low normal side, advised against increasing opiates at this time given pt appeared comfortable when she did not notice examiners presence on my initital visit -Continue Methadone, Tylenol BID and PRN, as well as PRN Ketorolac -D/W Dr. Amanda who is familiar with pt who suggested to replace PRN PO Morphine to a co-equivalent PO Dilaudid -Pt has not complained of pain with above change despite dilaudid being co- equivalent w/previous Morphine dose---this instance along with above observation and VS suggests pain seeking behavior -No further extra opioids ordered -Pt mentions she has not had any illicit IVDU since 2 years before, however, pt is a poor historian and will repeat cultures and obtain TTE and if not suggestive of bacterial endocarditis nor meet Pitkin criteria, I think we do not need YAJAIRA---consider ID consult on Wednesday (3) Suicidal ideation Current Visit: Yes Status: Acute Code(s): R45.851 - SUICIDAL IDEATIONS SNOMED Code(s): 4025815 Comment: -Appreciate psych sungpt has full capacity to decide for herself -D/Cd 1: 1 on 09/02 (4) Depression Current Visit: Yes Status: Acute Code(s): F32.9 - MAJOR DEPRESSIVE DISORDER , SINGLE EPISODE, UNSPECIFIED SNOMED Code(s): 49715405 Comment: -As above (5) Cigarette nicotine dependence Current Visit: Yes Status: Acute Code(s): F17.210 - NICOTINE DEPENDENCE, CIGARETTES, UNCOMPLICATED SNOMED Code(s): 58833109 Comment: -Advised lifestyle modifications -Continue Nicotine patch and PRN Nicotine inhalers (6) DVT prophylaxis Current Visit: No Status: Acute Code(s): RZU9207 - SNOMED Code(s): 605730188 Comment: -Continue Heparin SQq8H Status and Disposition: -For possible D/C in 1-2 days
[2018-09-03] MEDS ORDERED: Vancomycin Trough Check NOTE FOLLOW UP ONE (18:30)
[2018-09-03] MEDS: Nicotine Patch Removal NOTE FOLLOW UP SCH (20:39)
[2018-09-04] MEDS: Ketorolac INJ* 15 MG/ML 1 ML VIAL IV PUSH PRN (01:50)
[2018-09-04] MEDS ORDERED: Albuterol/Ipratropium NEB.SOL* Albuterol 2.5 MG/Ipratropium 0.5 MG 3 ML INH PRN (03:33)
[2018-09-04] MEDS ORDERED: Albuterol/Ipratropium NEB.SOL* Albuterol 2.5 MG/Ipratropium 0.5 MG 3 ML ONE (03:34)
[2018-09-04] MEDS: Vancomycin(*) 750 MG in NS 0.9% 250 ML* 250 ML IVPB SCH ×4 (03:38→13:07)
[2018-09-04] MEDS: HYDROmorphone TAB* 4 MG PO PRN ×3 (06:33→19:23)
[2018-09-04] MEDS: Piperacillin/Tazobac ADVAN(*) 3.375 GM in NS 0.9% 100 ML* 100 ML IVPB SCH ×3 (06:33→23:06)
[2018-09-04] MEDS: Heparin VIAL(*) 5000 UNITS/ML VIAL (FIVE THOUSAND) SUBCUT SCH ×3 (06:38→20:54)
[2018-09-04 06:58] LABS: ABS Basophils 0 10^3/ul (0-0.2); ABS Eosinophils 0.4 10^3/ul (0-0.6); ABS Lymphocytes 0.9 10^3/ul (1.0-4.8); ABS Monocytes 0.5 10^3/ul (0-0.8); ABS Neutrophils 3.5 10^3/ul (1.5-7.7); ABS Nucleated RBC 0 10^3/ul; Eosinophil % 7.5 % (0-6); Hematocrit 27 % (35-47); Hemoglobin 8.7 g/dl (12.0-16.0); Lymphocyte % 17.1 % (25-47); Mean Corpuscular HGB Conc 32 g/dl (31-36); Mean Corpuscular Hemoglobin 28 pg (27-31); Mean Corpuscular Volume 85 fL (80-97); Mean Platelet Volume 6.5 fL (7.4-10.4); Nucleated Red Blood Cells % 0.1; Platelet Count 401 10^3/ul (150-450); Red Blood Count 3.16 10^6/ul (4.00-5.40); Red Cell Distribution Width 17 % (10.5-15); White Blood Count 5.4 10^3/ul (3.5-10.8)
[2018-09-04] MEDS ORDERED: Albuterol/Ipratropium NEB.SOL* Albuterol 2.5 MG/Ipratropium 0.5 MG 3 ML INH SCH (07:00)
[2018-09-04 07:15] LABS: EGFR Non-African American 57.2 (>60)
[2018-09-04] MEDS: Acetaminophen TAB* 325 MG PO SCH ×2 (08:21→19:08)
[2018-09-04] MEDS: Nicotine PATCH 21 MG/24 HR* PATCH TRANSDERM SCH (08:21)
[2018-09-04] MEDS: Methadone TAB* 10 MG PO SCH (09:28)
[2018-09-04] MEDS: CMCS: Vilazodone (NF) 40 MG TAB PO SCH (09:29)
[2018-09-04] MEDS: Gabapentin CAP(*) 400 MG PO SCH ×3 (09:29→19:23)
[2018-09-04] MEDS: Omeprazole CAP* 20 MG PO SCH (09:29)
[2018-09-04] MEDS: Nystatin TOP POWDER* 15 GM BTL TOPICAL SCH ×3 (10:33→19:50)
[2018-09-04] MEDS ORDERED: Vancomycin Trough Check NOTE FOLLOW UP ONE (12:30)
[2018-09-04] MEDS: NS 0.9% 1000 ML* 1,000 ML IV SCH (13:30)
--- NOTE | 2018-09-04 18:44 | PN ---
Progress Note - Progress Note Date of Service: 09/04/18 Note: Ms Platt has given permission for me to take the following pictures and insert into her medical record. Left anterior leg L medial ankle Left posterior leg Left posterior leg Right Posterior Leg
[2018-09-04] MEDS ORDERED: Magnesium Sulfate IV* 3 GM in NS 0.9% 100 ML* 100 ML IVPB ONE (19:00)
--- NOTE | 2018-09-04 19:06 | PN ---
Subjective Date of Service: 09/04/18 Interval History: Pt is feeling poorly in that she is having severe pain in her legs. She notes there has been mild drainage from the wounds. She also states that she just hit the posterior aspect of her L leg on the corner of the bed. She states she has had 4 BMs today. Objective Active Medications: Acetaminophen (Tylenol Tab*) 975 mg PO TID [facility] Albuterol/Ipratropium (Duoneb (Albuterol 2.5 Mg/Ipratropium 0.5 Mg)) 1 neb INH Q4H PRN PRN Reason: SOB/WHEEZING Last Admin: 09/04/18 03:38 Dose: 1 neb Clobetasol Propionate (Clobetasol 0.05% Oint*) 1 applic TOPICAL BID [facility] Gabapentin (Neurontin Cap(*)) 800 mg PO TID [facility] Last Admin: 09/04/18 13:31 Dose: 800 mg Heparin Sodium (Porcine) (Heparin Vial(*)) 5,000 units SUBCUT Q8HR [facility] Last Admin: 09/04/18 13:31 Dose: 5,000 units Hydromorphone HCl (Dilaudid Tab*) 4 mg PO Q6H PRN PRN Reason: PAIN Last Admin: 09/04/18 13:31 Dose: 4 mg Sodium Chloride (Ns 0.9% 1000 Ml*) 1,000 mls @ 125 mls/hr IV PER RATE [facility] Last Admin: 09/04/18 13:30 Dose: 125 mls/hr Piperacillin Sod/Tazobactam (Sod 3.375 gm/ Sodium Chloride) 100 mls @ 25 mls/ hr IVPB Q8HR [facility] Last Admin: 09/04/18 13:30 Dose: 25 mls/hr Magnesium Sulfate 3 gm/ Sodium (Chloride) 106 mls @ 53 mls/hr IVPB ONCE ONE Stop: 09/04/18 20:59 Methadone HCl (Dolophine Tab*) 120 mg PO DAILY [facility] Last Admin: 09/04/18 09:28 Dose: 120 mg Nicotine (Nicotine Inhaler*) 10 mg INH Q2H PRN PRN Reason: CRAVING Nicotine (Nicotine Patch 21 Mg/24 Hr*) 1 patch TRANSDERM DAILY@0800 [facility] Last Admin: 09/04/18 08:21 Dose: Not Given Nystatin (Nystatin Top Powder*) 1 applic TOPICAL TID [facility] Last Admin: 09/04/18 13:32 Dose: 1 applic Omeprazole (Prilosec Cap*) 20 mg PO DAILY [facility] Last Admin: 09/04/18 09:29 Dose: 20 mg Pharmacy Consult (Zosyn Per Pharmacy*) 1 note FOLLOW UP .ZOSYN PER PHARMACY [facility] Pharmacy Consult (Vancomycin Per Pharmacy*) 1 note FOLLOW UP . PRN PRN Reason: PER PROTOCOL Pharmacy Consult (Vancomycin Random Level*) 1 note FOLLOW UP 0600 ONE Stop: 09/05/18 06:01 Pharmacy Profile Note (Nicotine Patch Removal Note*) 1 note FOLLOW UP 2099 [facility] Last Admin: 09/03/18 20:39 Dose: Not Given Vilazodone HCl (Viibryd (Nf)) 40 mg PO DAILY [facility] Last Admin: 09/04/18 09:29 Dose: 40 mg Vital Signs - 8 hr 09/04/18 09/04/18 09/04/18 11:28 13:03 13:31 Temperature 99.0 F Pulse Rate 80 Respiratory 17 16 17 Rate Blood Pressure 118/69 (mmHg) O2 Sat by Pulse 100 Oximetry 09/04/18 09/04/18 09/04/18 15:31 16:00 16:07 Temperature 99.1 F Pulse Rate 84 Respiratory 17 20 Rate Blood Pressure 127/68 (mmHg) O2 Sat by Pulse 98 98 Oximetry Oxygen Devices in Use Now: None Appearance: Middle aged female sitting up in the bed, NAD Eyes: No Scleral Icterus Ears/Nose/Mouth/Throat: Mucous Membranes Moist Respiratory: Symmetrical Chest Expansion and Respiratory Effort, Clear to Auscultation Cardiovascular: NL Sounds; No Murmurs; No JVD, RRR, - - 1+ edema to B/L LE Abdominal: NL Sounds; No Tenderness; No Distention Extremities: No Clubbing, Cyanosis Skin: - - L medial ankle: 1cm elliptoid ulcer; L anterior leg: no clear ulceration but area of concern for developing ulceration in the center of a 3cm circular lesion; L posterior LE: 14cm x 15cm x0.5cm; L medial groin: rectangular 11cm x 3cm x 1cm; R posterior LE: 12cm x 8cm x 0.75cm (see pictures in separate progress noted dated today), each wound with granulation tissue and scant amount of slough Neurological: Alert and Oriented x 3 Result Diagrams: 09/04/18 06:30 09/04/18 06:30 Microbiology and Other Data: Microbiology 09/01/18 12:40 Urine Culture - Final Urine No Growth (<1,000 CFU/mL) 09/01/18 06:42 Aerobic Blood Culture - Preliminary Blood Venous No Growth Day 1 Anaerobic Blood Culture - Preliminary No Growth Day 1 08/31/18 20:54 Aerobic Blood Culture - Preliminary Blood Venous No Growth Day 1 Anaerobic Blood Culture - Preliminary No Growth Day 1 Assess/Plan/Problems-Billing Ms Platt is a 48 yo F who has a 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 - Patient Problems (1) Pyoderma gangrenosum Current Visit: Yes Status: Acute Code(s): L88 - PYODERMA GANGRENOSUM SNOMED Code(s): 74310665 Comment: Pt has been treated for non-healing wound to her bilateral legs over the last couple months. My suspicion is that the wounds are secondary to pyoderma gangrenosum. There is no foul smell, significant drainage or clear evidence of cellulitis. Biopsy slides obtained from [facility] examined by Dr. Pruett are c/w PG. Will start clobetasol 0.05% ointment BID. Await ID consult tomorrow. ? need for systemic treatment given how large the wounds are and the fact that more appear to be developing. May also need to involve rheumatology. Continue vanco and zosyn for now until seen by ID. (2) Depression Current Visit: Yes Status: Acute Code(s): F32.9 - MAJOR DEPRESSIVE DISORDER , SINGLE EPISODE, UNSPECIFIED SNOMED Code(s): 43219848 Comment: Continue supportive care. (3) Opioid dependence Current Visit: Yes Status: Acute Code(s): F11.20 - OPIOID DEPENDENCE, UNCOMPLICATED SNOMED Code(s): 42209356 Comment: Pt is a former heroin user. Now on methadone. Continue methadone at current dose. (4) DVT prophylaxis Current Visit: Yes Status: Acute Code(s): YCO6573 - SNOMED Code(s): 011826361 Comment: SQ heparin (5) DNR (do not resuscitate) Current Visit: Yes Status: Acute Status and Disposition: -For possible D/C in 1-2 days
[2018-09-04] MEDS: Nicotine Patch Removal NOTE FOLLOW UP SCH (19:08)
[2018-09-04] MEDS: Clobetasol 0.05% OINT* 30 GM TUBE TOPICAL SCH (19:49)
[2018-09-05] MEDS: HYDROmorphone TAB* 4 MG PO PRN ×3 (05:09→20:02)
[2018-09-05] MEDS: Heparin VIAL(*) 5000 UNITS/ML VIAL (FIVE THOUSAND) SUBCUT SCH ×2 (05:10→12:32)
[2018-09-05] MEDS: Piperacillin/Tazobac ADVAN(*) 3.375 GM in NS 0.9% 100 ML* 100 ML IVPB SCH ×2 (05:10→13:29)
[2018-09-05] MEDS: NS 0.9% 1000 ML* 1,000 ML IV SCH ×2 (05:28→13:29)
[2018-09-05] MEDS ORDERED: Vancomycin Random Level* NOTE FOLLOW UP ONE (06:00)
[2018-09-05] MEDS ORDERED: Vancomycin(*) 1,000 MG in NS 0.9% 250 ML* 250 ML IVPB SCH (09:00)
[2018-09-05] MEDS: Nicotine PATCH 21 MG/24 HR* PATCH TRANSDERM SCH (09:21)
[2018-09-05] MEDS: CMCS: Vilazodone (NF) 40 MG TAB PO SCH (09:22)
[2018-09-05] MEDS: Omeprazole CAP* 20 MG PO SCH (09:22)
[2018-09-05] MEDS: Nystatin TOP POWDER* 15 GM BTL TOPICAL SCH ×3 (09:22→20:05)
[2018-09-05] MEDS: Acetaminophen TAB* 325 MG PO SCH ×3 (09:23→20:04)
[2018-09-05] MEDS: Gabapentin CAP(*) 400 MG PO SCH ×3 (09:23→20:03)
[2018-09-05] MEDS: Clobetasol 0.05% OINT* 30 GM TUBE TOPICAL SCH ×2 (09:24→20:04)
[2018-09-05] MEDS: Methadone TAB* 10 MG PO SCH (09:38)
--- NOTE | 2018-09-05 14:36 | PN ---
Subjective Date of Service: 09/05/18 Interval History: Pt is feeling about the same. She wants to go home. She is willing to wait until she is seen by Dr Camp. Objective Active Medications: Acetaminophen (Tylenol Tab*) 975 mg PO TID [facility] Last Admin: 09/05/18 12:32 Dose: Not Given Albuterol/Ipratropium (Duoneb (Albuterol 2.5 Mg/Ipratropium 0.5 Mg)) 1 neb INH Q4H PRN PRN Reason: SOB/WHEEZING Last Admin: 09/04/18 03:38 Dose: 1 neb Clobetasol Propionate (Clobetasol 0.05% Oint*) 1 applic TOPICAL BID [facility] Last Admin: 09/05/18 09:24 Dose: 1 applic Gabapentin (Neurontin Cap(*)) 800 mg PO TID [facility] Last Admin: 09/05/18 12:31 Dose: 800 mg Heparin Sodium (Porcine) (Heparin Vial(*)) 5,000 units SUBCUT Q8HR [facility] Last Admin: 09/05/18 12:32 Dose: 5,000 units Hydromorphone HCl (Dilaudid Tab*) 4 mg PO Q6H PRN PRN Reason: PAIN Last Admin: 09/05/18 12:29 Dose: 4 mg Sodium Chloride (Ns 0.9% 1000 Ml*) 1,000 mls @ 125 mls/hr IV PER RATE [facility] Last Admin: 09/05/18 13:29 Dose: 125 mls/hr Methadone HCl (Dolophine Tab*) 120 mg PO DAILY [facility] Last Admin: 09/05/18 09:38 Dose: 120 mg Nicotine (Nicotine Inhaler*) 10 mg INH Q2H PRN PRN Reason: CRAVING Nicotine (Nicotine Patch 21 Mg/24 Hr*) 1 patch TRANSDERM DAILY@0800 [facility] Last Admin: 09/05/18 09:21 Dose: Not Given Nystatin (Nystatin Top Powder*) 1 applic TOPICAL TID [facility] Last Admin: 09/05/18 12:45 Dose: Not Given Omeprazole (Prilosec Cap*) 20 mg PO DAILY [facility] Last Admin: 09/05/18 09:22 Dose: Not Given Pharmacy Consult (Zosyn Per Pharmacy*) 1 note FOLLOW UP .ZOSYN PER PHARMACY [facility] Pharmacy Profile Note (Nicotine Patch Removal Note*) 1 note FOLLOW UP 2100 [facility] Last Admin: 09/04/18 19:08 Dose: Not Given Vilazodone HCl (Viibryd (Nf)) 40 mg PO DAILY [facility] Last Admin: 09/05/18 09:22 Dose: 40 mg Vital Signs - 8 hr 09/05/18 09/05/18 09/05/18 07:10 09:23 09:38 Respiratory 18 18 20 Rate 09/05/18 09/05/18 12:29 12:31 Respiratory 18 18 Rate Oxygen Devices in Use Now: None Appearance: Middle aged female sitting up in bed, NAD Eyes: No Scleral Icterus Ears/Nose/Mouth/Throat: Mucous Membranes Moist Respiratory: Symmetrical Chest Expansion and Respiratory Effort, Clear to Auscultation Cardiovascular: NL Sounds; No Murmurs; No JVD, RRR Abdominal: NL Sounds; No Tenderness; No Distention Extremities: No Clubbing, Cyanosis Skin: - - wounds to groin, bilateral lower legs unchanged today Neurological: Alert and Oriented x 3 Result Diagrams: 09/04/18 06:30 09/05/18 05:20 Microbiology and Other Data: Microbiology 09/01/18 12:40 Urine Culture - Final Urine No Growth (<1,000 CFU/mL) 09/01/18 06:42 Aerobic Blood Culture - Preliminary Blood Venous No Growth Day 1 Anaerobic Blood Culture - Preliminary No Growth Day 1 08/31/18 20:54 Aerobic Blood Culture - Preliminary Blood Venous No Growth Day 1 Anaerobic Blood Culture - Preliminary No Growth Day 1 Assess/Plan/Problems-Billing Ms Platt is a 48 yo F who has a 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 - Patient Problems (1) Pyoderma gangrenosum Current Visit: Yes Status: Acute Code(s): L88 - PYODERMA GANGRENOSUM SNOMED Code(s): 55272937 Comment: Pt has been treated for non-healing wound to her bilateral legs over the last couple months. As the suspicion is that the patient has PG I have asked for rheumatology eval. Dr. Camp will see the patient this afternoon. For now continue clobetasol ointment BID. I doubt there is much cellulitis present currently but will likely d/c home on oral Abx. (2) Depression Current Visit: Yes Status: Acute Code(s): F32.9 - MAJOR DEPRESSIVE DISORDER , SINGLE EPISODE, UNSPECIFIED SNOMED Code(s): 02229654 Comment: Continue supportive care. (3) Opioid dependence Current Visit: Yes Status: Acute Code(s): F11.20 - OPIOID DEPENDENCE, UNCOMPLICATED SNOMED Code(s): 22394812 Comment: Pt is a former heroin user. Now on methadone. Continue methadone at current dose. Pt with increased pain due to the ulcerations on her legs. Will ultimately d/c pt home with dilauid 4mg po q6hr prn pain. (4) DVT prophylaxis Current Visit: Yes Status: Acute Code(s): OYP7878 - SNOMED Code(s): 164142737 Comment: SQ heparin (5) DNR (do not resuscitate) Current Visit: Yes Status: Acute Status and Disposition: .
[2018-09-05 16:21] VITALS: BP 133/82
--- NOTE | 2018-09-05 17:59 | CONSULT ---
Consult Consult: Ms. Platt is a 48 year old woman with non healing wounds primarily on her lower extremity. My impression is pyoderma gangrenosum. Consider vasculitis and also another variant of a neutrophilic dermatosis. Given her diarrhea and anemia, consider a GI referral to screen for inflammatory bowel disease (although diarrhea could in part be from antibiotics) . Would be very cautious with any debridement procedure (to reduce risk of extension). To evaluate for systemic rheumatologic conditions, I recommend checking a connective tissue panel, hepatitis panel, cryoglobulins, RF, and ANCA and HLAb27. I recommend (in addition to topical therapy) a trial of Colchicine .6mg at twice daily (but decrease to once daily if she has more diarrhea); as an inhibitor of neutrophil chemotaxis, it may help quickly to reduce inflammation. Please follow up with me in 1 or 2 weeks post hospital follow up. Thanks for this consult
[2018-09-05] MEDS: Nicotine Patch Removal NOTE FOLLOW UP SCH (20:04)
--- NOTE | 2018-09-05 22:56 | CONS ---
CONSULTATION REPORT: DATE OF CONSULT: 09/05/18 CONSULTING PHYSICIAN: Dr. Haynes. REASON FOR CONSULT: Evaluate for pyoderma gangrenosum. CHIEF COMPLAINT: Pyoderma gangrenosum. HISTORY OF PRESENT ILLNESS: Ms. Princess Platt is 48-year-old female with a history of IV drug abuse in the distant past and opioid dependence as well as mood disorder. She has had recurrent low-grade fevers in the setting of recurrent non-healing ulceration in her lower extremities. She was initially felt to have a cellulitic condition, but she has not responded to IV antibiotics. During her hospital stay, she was noted to have recurrent non- healing ulcerations along her left medial ankle, along the left posterior leg, and along the left posterior region of the leg which is along her posterior calf region as well as the right posterior leg. These lesions have persisted despite IV antibiotics. Symptomatically, she has also had arthralgias and myalgias as well as difficulty with raising her shoulders and this has progressed and gotten worse over the last couple of months. She has also noted a watery diarrhea, but no blood in the stool, in part she has attributed this to antibiotics. She has also noticed some drainage within the wounds. She has also had a wound that has been emerging in the left groin region associated with some lymph node swelling. For the last couple of months, these wounds have evolved. There is no foul odor or significant drainage from these regions or clear evidence of cellulitis. Some slides from [facility] examined by Pathology and were consistent with pyoderma gangrenosum. She was started on clobetasol and she is currently hoping for discharge so that she can follow up with us soon as an outpatient. PAST MEDICAL HISTORY: In terms of her prior history, she does have a history of : 1. Polysubstance abuse, IV drug abuse. 2. History of mood disorder. 3. She also has a history of external hemorrhoids, which have been exacerbated recently. She was recently seen by Infectious Disease and she was felt to have chronic bilateral lower extremity leg ulcers in the setting of leg edema. It was felt that she also might have a component of venous stasis and there is a question of venous insufficiency versus right heart failure in the setting of methadone maintenance therapy. Workup also revealed elevated C-reactive protein and at that time ID had recommended continuing cefepime as well. Her past medical history is also notable for depression. PAST SURGICAL HISTORY: No recent surgeries. MEDICATIONS: In terms of medication as an outpatient, she had been on: 1. Gabapentin 800 mg 3 times daily. 2. Ibuprofen as needed, which she noted to have improved some of the flares of joint pain that she has been having. 3. She has also been on methadone daily. 4. Trazodone 150 mg up to four times daily at night. 5. Viibryd 40 mg in the morning. FAMILY HISTORY: Negative for acute rheumatic conditions or lupus or rheumatoid arthritis. There is no family history immediately of colitis and there is no recent infections or tuberculosis. SOCIAL HISTORY: She lives in [place]. She travels to [place] each day for methadone treatment. She had been recently hospitalized at [facility]. She has a past history of heroin abuse. REVIEW OF SYSTEMS: General: Has had general myalgias. HEENT: Denies iritis or trauma to the eyes or ears. No red or painful eyes. HEENT: Denies dry mouth that is significant. Denies jaw pain or headaches. Cardiac: She has had some mild shortness of breath overtime which has been exertional in nature but denies chest wall pain. Pulmonary: Denies acute shortness of breath, but she does have chronic shortness of breath. GI: She has had watery stool, but no blood in it, but she has had chronic diarrhea. Genitourinary: As noted above. No blood in the stool or urine. Musculoskeletal: As noted above. Skin : As noted above. Other 14- point review of systems were reviewed and were otherwise negative. PHYSICAL EXAM: She is pleasant, in no acute distress and has been conversive. She was afebrile with a respiratory rate of 18 and she was not hypotensive. Pulse is normal. She appeared to be chronically ill, but no acute distress. Eyes: Sclerae anicteric. Ears, nose, and throat: Mucous membranes are moist. Respiratory: Symmetric chest expansion and respiratory effort. Clear to auscultation. Cardiovascular exam revealed normal sounds. No murmurs, rubs, or gallops. Regular rate and rhythm. Abdomen: Soft, nontender, and nondistended with positive bowel sounds. No organomegaly. Extremities: No cyanosis or clubbing. She has mild venous stasis changes. Skin: She had well-demarcated wounds in her both lower extremities bilaterally with some purplish hyperpigmented areas that were macular in nature across her forearms with some scars from prior drug abuse and also another non-healing lesion in her left thigh region, which is well-demarcated with good granulation tissue extended into a stage II type pattern with no overlying or underlying tendons or bone exposed but it was erythematous in nature. LABORATORY DATA: She had a urine culture which showed no growth. Anaerobic blood cultures showed no growth. She had a C-reactive protein that was elevated. ASSESSMENT AND PLAN: Ms. Platt is a 48-year-old woman with a history of IV drug abuse, which has been in remission over the last 2 days, and has developed chronic lower extremity lesions which is consistent with pyoderma gangrenosum, also consider vasculitis or other neutrophilic dermatosis. At this point in time, I do recommend that she see a highway traffic control technician, although it is possible that her diarrhea could be from her medications including recent antibiotics, but also consider underlying colitis, which has been associated with inflammatory bowel disease and pyoderma gangrenosum. I would also check hepatitis panel, cryoglobulins as well as connective tissue panel and rheumatoid factor, YAMEL, and given her axial symptoms, to screen for underlying spondyloarthropathy, I recommend checking a HLA-B27. She has been started on topical clobetasol and I would be cautious with doing any debridement preferably avoiding debridement in the setting of pyoderma because sometimes it causes extension of the wound as there are inflammatory changes around the border. There is some evidence that colchicine may help pyoderma gangrenosum. This was discussed by 2004 Dermatology edition and it may help as a single agent or as a corticosteroid-sparing agent for early treatment of pyoderma gangrenosum. I would suggest adding it at 0.6 mg twice daily, watch for diarrhea that might be worsening and if this so, cut back to once daily. I will follow up with her as an outpatient in 1 to 2 weeks. [id number]/[facility] #: [id number] [facility]
--- NOTE | 2018-09-06 02:15 | DS ---
CC: Dr. Schultz; Dr. Camp * DISCHARGE SUMMARY: DATE OF ADMISSION: 08/31/18 DATE OF DISCHARGE: 09/05/18 PRIMARY CARE PROVIDER: Dr. Schultz. REPRESENTATIVE GOVERNMENT RELATIONS: Dr. Camp. PRINCIPAL DIAGNOSIS: Pyoderma gangrenosum of the bilateral lower extremities. SECONDARY DIAGNOSES: 1. History of heroin abuse, currently on methadone treatment. 2. Tobacco abuse. 3. Fibromyalgia. 4. Depression. DISCHARGE MEDICATIONS: 1. Methadone 128 mg p.o. daily. 2. Gabapentin 800 mg p.o. t.i.d. 3. Viibryd 40 mg p.o. daily. 4. Dilaudid 4 mg p.o. q.6 hours p.r.n. pain, dispensed 20 tablets. 5. Colchicine 0.6 mg p.o. b.i.d. (new). 6. Clobetasol 0.05% ointment applied topically to wounds twice daily (new). 7. Keflex 500 mg p.o. t.i.d. x4 days. HOSPITAL COURSE: Ms. Platt is a 48-year-old female who has had extensive and severe bilateral lower extremity wounds in June of this year. Reportedly, the patient had a bad cellulitis that required debridement and has been left with very substantial wounds to her posterior calves and left groin. The patient was admitted to [facility] on 08/19/18 and left against medical advice on 08/24/18 after being treated for cellulitis secondary to the lower extremity wounds. During that hospitalization, Dr. Pruett from Pathology evaluated the patient for possible biopsy. She did not want to biopsy the patient, but did obtain slides from [facility] in [place]. The slides were read on 08/29/18. The pathology report reveals findings most compatible with Pyoderma gangrenosum. The patient unfortunately did not receive this information. She re-presented to the emergency room on 08/31/18 with complaints of rigors and weakness. Ultimately, she was readmitted for possible cellulitis, again associated with these wounds on her legs. At the time of my evaluation on 09/04/18, there was no clear evidence of cellulitis, though the patient had been on vanco and Zosyn. The wounds were very punched-out appearing with extensive granulation tissue at the bases. The edges were somewhat erythematous to violaceous in color; there appeared to be undermining. There also appeared to be 2 new ulcerating lesions appearing 1 on the left anterior leg and 1 on the left medial ankle. The clinical history as well as the pathology report makes me suspect that this is likely Pyoderma gangrenosum. The patient was seen in consultation by Dr. Camp on the evening of 09/05/18. He agreed with the diagnosis of Pyoderma gangrenosum versus vasculitis or another variant of neutrophilic dermatosis. He did recommend referring the patient to GI for evaluation of possible inflammatory bowel disease as the patient has stated that she has been having fairly frequent diarrhea and Pyoderma gangrenosum as often associated with inflammatory bowel disease. Additionally, he recommends to be very cautious with any debridement procedure as this can extend the ulcerative lesion. He had me order connective tissue panel, hepatitis panel, cryoglobulins, rheumatoid factor, ANCA and HLA-B27. The patient was recommended to continue on clobetasol 0.05% ointment applied to the wound bases twice daily to be covered then with Vaseline gauze, then an ABD , then Kerlix. He also recommended adding colchicine 0.6 mg p.o. twice daily; however, if the diarrhea increases, to decrease this to once daily. The patient is to follow up with Dr. Camp in approximately 1 to 2 weeks. The patient has had significant pain associated with these wounds, which is expected. She is on methadone at baseline; however, I suspect based on her history of past heroin abuse and chronic methadone use, she has a high tolerance for narcotic pain medications. The patient will be discharged with Dilaudid 4 mg p.o. q.6 hours p.r.n. pain. I have dispensed 20 tablets. Additionally, the patient will continue on Keflex for another 4 days in case there was early cellulitis on admission. The patient has been set up for VNS. Additionally, I am asking that case management refer the patient to the wound center for further wound care. FOLLOWUP CONCERNS: The patient is being discharged home today, 09/05/18. ACTIVITY LEVEL: As tolerated. DIET: Regular. CONDITION ON DISCHARGE: Stable. DISCHARGE INSTRUCTIONS: The patient should follow up with Dr. Schultz in the next 4 to [address] Camp in the next 1 to 2 weeks. TIME SPENT: 45 minutes were spent discharging this patient. [id number]/[facility] #: [id number] [facility]
[2018-09-07] MEDS ORDERED: Vancomycin Trough Check NOTE FOLLOW UP ONE (08:30)
== END 2018-09-05 21:48 | disposition home health service (06) | DRG 383 ==
LOC: ED 18:32 → MED 22:42
PROVIDERS: ADMIT Internal Medicine; ATTEND Hospitalist
PROC: 05HM33Z Insertion of Infusion Device into Right Internal Jugular Vein, Percutaneous Approach (ICD-10-PCS; principal; 2018-08-31)
DX: L88 Pyoderma gangrenosum (principal); F11.20 Opioid dependence, uncomplicated; F19.20 Other psychoactive substance dependence, uncomplicated; R45.851 Suicidal ideations; L97.929 Non-pressure chronic ulcer of unspecified part of left lower leg with unspecified severity; L97.919 Non-pressure chronic ulcer of unspecified part of right lower leg with unspecified severity; L03.115 Cellulitis of right lower limb; L03.116 Cellulitis of left lower limb; L98.2 Febrile neutrophilic dermatosis [Sweet]; F50.9 Eating disorder, unspecified; F41.9 Anxiety disorder, unspecified; F32.9 Major depressive disorder, single episode, unspecified; F17.210 Nicotine dependence, cigarettes, uncomplicated; F60.9 Personality disorder, unspecified; M79.7 Fibromyalgia; F39 Unspecified mood [affective] disorder; K63.9 Disease of intestine, unspecified; I77.6 Arteritis, unspecified; K64.4 Residual hemorrhoidal skin tags; Z66 Do not resuscitate; Z98.51 Tubal ligation status; Z90.49 Acquired absence of other specified parts of digestive tract; Z81.8 Family history of other mental and behavioral disorders; Z88.8 Allergy status to other drugs, medicaments and biological substances; Z91.018 Allergy to other foods; Z81.1 Family history of alcohol abuse and dependence; Z86.14 Personal history of Methicillin resistant Staphylococcus aureus infection
CPT/HCPCS: 36415; 71045; 80053; 80074; 80202; 80307; 80329; 81003; 81015; 82565; 82595; 83516; 83605; 83735; 84100; 84443; 84484; 84520; 85025; 85610; 85730; 86038; 86140; 86200; 86431; 87040; 87086; 93005; 94640; 99284; A9270-GY; G0480; J1644; J1885; J2060; J2543; J2765; J3010; J3370; J3475; J3486

== ENCOUNTER 2018-09-20 10:56 | Observation (INO) | payer OTHER ==
[2018-09-20] MEDS ORDERED: Naloxone* 0.4 MG/ML 1 ML VIAL IV PUSH ONE (11:09)
--- NOTE | 2018-09-20 11:09 | ED ---
Altered Mental Status - HPI Summary HPI Summary: This patient is a 48 year old F presenting to [facility] after being brought in by security after she was found near radiation medicine and appeared to be having trouble ambulating with her walker. The patient appears confused and is not answering questions appropriately. She appears weak and needed assistance to ambulate from the wheelchair onto the stretcher. She does not answer when asked why she is at the hospital today. LEVEL 5 CAVEAT: Exam limited due to the patients altered mental status. - History Of Current Complaint Stated Complaint: POSSIBLE OVERDOSE Time Seen by Provider: 09/20/18 11:00 Hx Obtained From: Patient Hx Last Menstrual Period: 04/13/17 Onset/Duration: Unknown, Still Present Timing: Constant Severity Initially: Moderate Severity Currently: Moderate Character: Confusion Associated Signs And Symptoms: Positive: Weakness - Allergies/Home Medications Allergies/Adverse Reactions: Allergies Allergy/AdvReac Type Severity Reaction Status Date / Time divalproex sodium Allergy Swelling Verified 03/10/18 09:36 [From Depakote] duloxetine [From Cymbalta] Allergy See Comment Verified 03/10/18 09:37 kaleb Allergy Shortness Verified 03/10/18 09:36 of Breath pregabalin [From Lyrica] Allergy Anaphylatic Verified 03/10/18 09:36 Shock Home Medications: Home Medications Lysine 500 mg PO DAILY 09/20/18 [History Confirmed 09/20/18] Methadone AMIE (NF) 123 mg PO DAILY 09/20/18 [History Confirmed 09/20/18] traZODone TAB* [Desyrel TAB*] 600 mg PO BEDTIME 09/20/18 [History Confirmed 08/28] PMH/Surg Hx/FS Hx/Imm Hx Endocrine/Hematology History: Denies: Hx Diabetes Cardiovascular History: Denies: Hx Hypertension, Hx Pacemaker/ICD Respiratory History: Denies: Hx Asthma, Hx Chronic Obstructive Pulmonary Disease (COPD) - never diagnosed, but extensive smoking hx History: Denies: Hx Dialysis, Hx Renal Disease Sensory History: Reports: Hx Contacts or Glasses Denies: Hx Hearing Aid, Hx Hearing Problem Opthamlomology History: Reports: Hx Contacts or Glasses Neurological History: Reports: Hx Seizures Psychiatric History: Reports: Hx Anxiety, Hx Eating Disorder - "not anymore", Hx Depression, Hx Substance Abuse Denies: Hx Panic Disorder, Hx of Violent Episodes Against Others - Surgical History Surgery Procedure, Year, and Place: C SECTION - X2, TUBAL LIGATION, GALL BLADDER 2012 Infectious Disease History: Reports: Hx Hepatitis - HEP C, Hx of Known/ Suspected MRSA - nose 2009 Denies: Hx Clostridium Difficile, Hx Human Immunodeficiency Virus (HIV), Hx Shingles, Hx Tuberculosis, Hx Known/Suspected VRE, 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, History Other Infectious Disease - Family History Known Family History: Positive: Other - Bipolar disorder, alcoholism Negative: Cardiac Disease, Hypertension, Diabetes - Social History Alcohol Use: Unable to assess Hx Substance Use: Yes Substance Use Type: Reports: Heroin - former Substance Use Comment - Amount & Last Used: 04/29/17 Hx Tobacco Use: Yes Smoking Status (MU): Heavy Every Day Tobacco Smoker Type: Cigarettes Amount Used/How Often: 1 PPD Length of Time of Smoking/Using Tobacco: 32 years Have You Smoked in the Last Year: Yes Review of Systems - ROS Summary Review of Systems Summary: LEVEL 5 CAVEAT: Exam limited due to the patients altered mental status. Positive: Other - bilateral LE wounds Positive: Weakness Positive: Other - AMS All Other Systems Reviewed And Are Negative: No Physical Exam - Summary Physical Exam Summary: Appearance: Well appearing, no pain distress Skin: there is ecchymosis on the right elbow with swelling through the right forearm. There is chronic appearing dermatitis on the right arm as well. Her hands are cold. There are bilateral posterior calf wounds with exudate. The left calf wound is approximately 12x7 cm while the right is approximately 12x5 cm. there is another large wound on the inside on the left medial thigh that is 6x3cm. she has multiple other small wounds and a papularly eruption on bilateral shoulders. Head/face: normal Eyes: EOMI, pupils are 2mm bilaterally and unreactive ENT: mucous membranes moist Neck: supple, non-tender Respiratory: CTA, breath sounds present, she is maintaining spontaneous respirations. Cardiovascular: RRR, pulses symmetrical, no murmur, she is hypotensive Abdomen: non-tender, soft Bowel Sounds: present Musculoskeletal: there is chronic bilateral LE edema with 2 plus pitting edema Neuro: sensory motor intact, somnolent and confused. Triage Information Reviewed: Yes Vital Signs Reviewed: Yes Completion Of Physical Exam Limited Due To: Altered Mental Status, Level 5 - LEVEL 5 CAVEAT: Exam limited due to the patients altered mental status. Procedures - Procedure Summary Procedure Summary: Femoral stick under US guidance for blood in the left femoral Diagnostics - Laboratory Result Diagrams: 09/20/18 11:34 09/20/18 11:34 Lab Statement: Any lab studies that have been ordered have been reviewed, and results considered in the medical decision making process. - EKG 1112 Cardiac Rate: NL EKG Rhythm: Sinus Rhythm - at 80 BPM Summary of EKG Findings: Normal [place]. Normal Interval. Normal ST Re-Evaluation - Re-Evaluation First Eval Re-Evaluation Time: 11:38 Change: Improved Comment: Pt improved with narcan and is speaking appropriately. She is argumentative and is requesting to leave Altered Mental Statu Course/Dx - Course Course Of Treatment: Patient in the hospital for unknown reason found to be somnolent and likely under the effect of prescribed medications. Her pupils are pinpoint. She has no peripheral access so blood was drawn by me through a straight stick in the left groin. Following the blood draw 0.2 mg of Narcan was administered IV. She had abrupt wakening and normalization of mental status however she remained extremely weak and unable to get up. She has multiple wounds that were cleaned and dressed with wet-to-dry dressing. She was wanting to go home however quickly became more somnolent again. She maintained her vital signs well. Even her multiple social issues as elected that she be admitted for further evaluation and treatment. Hospitalist team agrees and will have team evaluate her in the ER. It was found that she has a history of pyoderma gangrenosum as the cause of the wounds. - Diagnoses Differential Diagnosis/HQI/PQRI: Hypothermia, Intoxication, Intracranial Bleed, Medication Reaction, Metabolic Disorder, Overdose, Postictal State Provider Diagnoses: Pressure ulcer, Opioid overdose, Delirium, Pyoderma gangrenosum - Provider Notifications Discussed Care Of Patient With: Ron Irving Time Discussed With Above Provider: 13:15 Instructed by Provider To: Admit As Inpatient - Critical Care Time Critical Care Time: 30-74 min - CCT is EXCLUSIVE of separately billable procedures Discharge - Sign-Out/Discharge Documenting (check all that apply): Patient Departure - admitted - Discharge Plan Condition: Guarded Disposition: ADMITTED TO [facility] - Billing Disposition and Condition Condition: GUARDED Disposition: Admitted to [facility] - Attestation Statements Document Initiated by Scribe: Yes Documenting Scribe: Dani Macario Provider For Whom Scribe is Documenting (Include Credential): Brian Chu MD Scribe Attestation: I, Dani Macario , scribed for Brian Chu MD on 09/20/18 at 2021. Scribe Documentation Reviewed: Yes Provider Attestation: The documentation as recorded by the Dani caal accurately reflects the service I personally performed and the decisions made by me, Brian Chu MD Status of Scribe Document: Viewed
[2018-09-20] MEDS ORDERED: Naloxone Nasal Spray* 4 MG/0.1 ML NASAL.SPR INTRANASAL ONE (11:22)
[2018-09-20] MEDS: NS 0.9% 1000 ML* 1,000 ML IV ONE ×2 (12:46→15:27)
[2018-09-20 12:50] LABS: ABS Basophils 0.1 10^3/ul (0-0.2); ABS Eosinophils 0.3 10^3/ul (0-0.6); ABS Lymphocytes 1.3 10^3/ul (1.0-4.8); ABS Monocytes 0.6 10^3/ul (0-0.8); ABS Neutrophils 4.7 10^3/ul (1.5-7.7); ABS Nucleated RBC 0 10^3/ul; Eosinophil % 4.7 %; Hematocrit 34 % (35-47); Lymphocyte % 18.3 %; Mean Corpuscular HGB Conc 32 g/dl (31-36); Mean Corpuscular Hemoglobin 28 pg (27-31); Mean Corpuscular Volume 85 fL (80-97); Mean Platelet Volume 6.9 fL (7.4-10.4); Nucleated Red Blood Cells % 0.2; Platelet Count 635 10^3/ul (150-450); Red Cell Distribution Width 18 % (10.5-15)
[2018-09-20 12:59] LABS: INR 1.02 (0.77-1.02)
[2018-09-20 13:10] LABS: EGFR Non-African American 34.4 (>60)
[2018-09-20] MEDS ORDERED: Acetaminophen TAB* 325 MG PO PRN (14:26)
[2018-09-20] MEDS ORDERED: Al Hydrox/Mg Hydrox/Simet LIQ* 30 ML UDC PO PRN (14:26)
[2018-09-20] MEDS ORDERED: NS 0.9% 1000 ML* 1,000 ML IV SCH (14:45)
--- NOTE | 2018-09-20 18:15 | HP ---
CC: Dr. Schulzt; Dr. Camp * HISTORY AND PHYSICAL: DATE OF ADMISSION: 09/20/18 PROVIDER: Keila White NP. PRIMARY CARE PROVIDER: Dr. Schultz. ATTENDING PHYSICIAN WHILE IN THE HOSPITAL: Dr. Ron Irving * (dictated by Keila White NP). CHIEF COMPLAINT: Altered mental status. HISTORY OF PRESENT ILLNESS: Ms. Platt is a 48-year-old female, who presented to the emergency room after being brought by a security after she was found near radiation medicine and appeared to be having trouble ambulating with her walker. On arrival to the emergency room, the patient appeared to be confused and was not answering questions appropriately. She did appear to be weak and needed assistance with ambulating from the wheelchair and to the stretcher. She does not answer when asked why she was in the hospital today. The patient has had significant altered mental status. She was given Narcan in the emergency room and when she did arouse after Narcan, the patient was speaking appropriately. She was argumentative and requesting to leave, but then after receiving the Narcan, the patient subsequently became more lethargic , so we were asked to see and evaluate her for admission. PAST MEDICAL HISTORY: Significant for: 1. Pyoderma gangrenosum to bilateral lower extremities. 2. History of heroin abuse, currently on methadone. 3. Tobacco abuse. 4. Fibromyalgia. 5. Depression. 6. Hepatitis C. 7. History of MRSA. PAST SURGICAL HISTORY: 1. x2. 2. Tubal ligation. 3. Cholecystectomy in 2012. CURRENT MEDICATIONS: Unknown. The patient does state that she is taking gabapentin at home. Denies taking Dilaudid or colchicine at this time. Medication history is difficult to obtain due to the patient's altered mental status. ALLERGIES TO MEDICATIONS: She has allergy to DIVALPROEX SODIUM, DULOXETINE, ERIK, PREGABALIN. FAMILY HISTORY: Obtained from prior medical records, questionable reported history of gallbladder disease. SOCIAL HISTORY: The patient has a history of former IV drug use, denies current use of drugs. She does currently smoke. Surrogate decision maker, unable to relay due to her lethargy. REVIEW OF SYSTEMS: There was no documented fevers. She denies any significant weight change. She denies any rhinorrhea or ear discharge. She denies any fevers or chills. She denies any chest pain, orthopnea, or nocturnal dyspnea. She denies any shortness of breath. Denies any abdominal pain, nausea, vomiting , or diarrhea. Denies any urinary frequency or urgency. She does report bilateral lower extremity skin ulcerations, the dressings are intact too. Review of 14 systems was completed, all others are negative. The patient does have altered mental status and does fall asleep frequently during this interview. PHYSICAL EXAMINATION GENERAL: At this time, Ms. Platt is a 48-year-old female. She is sitting on the stretcher in the emergency room. She appears to be lethargic and falls asleep frequently during this interview. She does not appear to be in any acute distress. VITAL SIGNS: Blood pressure is 98/68, heart rate is 82, respirations 16, O2 saturation 96% on room air, temperature was 98.0. HEENT: Head is atraumatic, normocephalic. Eyes: EOMs are intact. Sclerae anicteric and not pale. Pupils are pinpoint. Oral mucosa appeared to be dry. NECK: Supple. LUNGS: Clear to auscultation bilaterally. No wheezes, rales or rhonchi. CARDIAC: S1, S2. Regular rate and rhythm. No murmurs, rubs, or gallops. ABDOMEN: Soft and nontender. Bowel sounds are present x4. EXTREMITIES: Pluses are +1 bilaterally. She does have some right foot swelling and mild erythema to the right foot, she reports it is chronic. She is able to move all 4 extremities with 4/5 strength. NEUROLOGIC: She is drowsy, awake to verbal, but falls asleep frequently during interviewing. Speech is soft. She does follow commands when aroused. SKIN: Bilateral lower extremities with ulcerations noted. Dressings are intact. DIAGNOSTIC STUDIES/LAB DATA: Electrocardiogram showed sinus rhythm, rate of 80. WBCs of 7.0, RBCs 4.00, hemoglobin 11.0, hematocrit was 34, RDW was 18, platelet count was 635. INR was 1.02. Sodium 136, potassium is pending, chloride 107, carbon dioxide was 23, anion gap is pending, BUN is 13, creatinine is mildly elevated from her baseline at 1.60. Lactic acid was 0.8, calcium 9.1, T-bili was 0.30. ASTs are pending. ALTs were 7. Alkaline phosphatase was 92. Troponin was 0.00. Urine is currently pending. ASSESSMENT AND PLAN: Ms. Platt is a 48-year-old female, who presented to the emergency room when found by security with altered mental status and weakness. We were asked to see and evaluate her due to her altered mentation and lethargy. She will be admitted under observation for: 1. Altered mental status. I suspect that this is possibly related to drug ingestion as her mentation did improve with the use of Narcan in the emergency room at which point she became lucid and thought process was intact. Her mentation did decline as Narcan wore off. We will observe her overnight. I will get social insurance analyst involved for safe discharge plan for her for home. At this time, she is unable to give a clear indication of why she presented to [facility] today or a clear discharge plan. 2. Polysubstance abuse. Continue with supportive care. She has methadone listed prior to admission. I will hold methadone at this time due to her level of lethargy. 3. Depression. We will continue with supportive care. 4. DVT prophylaxis: I will place her on heparin subcu. 5. Code status: She is a full code. 6. Pyoderma gangrenosum to bilateral lower extremities. Apply clobetasol 0.05 ointment topically daily to wounds then place Vaseline gauze, then ABD and then Kerlix dressing twice daily. 7. Thrombocytopenia. We will repeat CBC in the a.m. TIME SPENT: Time spent on this admission was 60 minutes, greater than half of that time was spent [id number] with the patient obtaining my history and physical, the other half of that time was spent going over my plan of care and implementing my plan of care. I have discussed this with my attending, Dr. Ron Irving, he is in agreement with my plan. KEILA WHITE, CORRECTIONAL FACILITY PSYCHIATRIST [id number]/[facility] #: [id number] GORGE
[2018-09-20] MEDS: Clobetasol 0.05% OINT* 30 GM TUBE TOPICAL SCH (20:47)
[2018-09-20] MEDS: Heparin VIAL(*) 5000 UNITS/ML VIAL (FIVE THOUSAND) SUBCUT SCH (20:47)
--- NOTE | 2018-09-20 21:48 | PN ---
Hospitalist Progress Note Date of Service: 09/20/18 Call by Nursing staff stating that the patient wanted t leave against medical advice. Advised staff this keno writer / runner was with a patient in the emergency room and would be up to assess the patient shortly. Arrived to the floor to assess the patient and the patient had left was taking to the admitting area prior to signing AMA and having risks of leaving reviewed with the patient. Looked for the patient in the central admitting area and patient no where to be found. Approximately 1999 informed by security and seasonal warehouse associate that the patient was found in the infusion center. Approached the patient to discuss leaving against medical advice, patient is alert, sitting on the bench in the entry way of the hospital. patient reports that she is not willing to sign any paperwork about leaving against medical advice, states that she is sick and does not know what is wrong her. continues to states that she wishes to leave the hospital against medical advice. Patient was advised that she needed to get a ride home, states that she has been trying to contact her son and friend Stacy for a ride but has been unsuccessful. Patient was advised that we would not be able to provider her with transportation home by the seasonal warehouse associate. patient became upset and stated " I do not care if I walk in front of a bus". This being the second time the patient was found wandering in the facility today , making the comment of not caring if she walked in front of a bus. I am concerned with her ability to make rational decisions. I have revoked the patient's capacity to leave against medical advice until she is cleared by psychiatry tomorrow given her bazaar behaviors seen today and comment this evening making her a potential risk to her safety.
[2018-09-21] MEDS: Heparin VIAL(*) 5000 UNITS/ML VIAL (FIVE THOUSAND) SUBCUT SCH ×2 (05:45→14:12)
[2018-09-21] MEDS: Clobetasol 0.05% OINT* 30 GM TUBE TOPICAL SCH (09:35)
[2018-09-21] MEDS ORDERED: traMADol TAB* 50 MG PO PRN (11:03)
[2018-09-21 14:00] VITALS: BP 104/68
--- NOTE | 2018-09-21 14:45 | CONSULT ---
Consult Consult: S: Psychiatry is asked to evaluate capacity in this 48 y.o. single, white female with a history of opioid dependence on agonist maintenance therapy and pyodermic gangrenosum who was admitted to the hospital yesterday for altered mental status after appearing on hospital property in a state of confusion and disorientation. Later in the day yesterday she attempted to elope and allegedly made a suicidal statement. The patient was seen by psychiatry on September 02 of this year during a previous admission and please refer to that consultation by Dr. Fredy Hull for further details. Today on exam the patient is awake, alert and cooperative. She states that ever since being diagnosed with the pyodermic gangrenosum in June of this year she has had intermittent periods of confusion similar to yesterday, but tends to snap out of them spontaneously. She is in a daily methadone program at [facility] in [place] and strenuously denies having used any additional substances that would explain her presentation. At this time she feels back to her baseline and would like to return home and follow up with bank operations officer Dr. Camp in the outpatient setting. She understands the risk of getting confused again and states that her son and female neighbor, who is a close friend, will look after her. She denies being suicidal. O: middle-aged white female, appears older than stated age; dressed in an orange jacket with glasses; several dressings covering her bilateral lower extremities; fair grooming; calm, cooperative; euthymic with full affect; denies SI or HI; insight and judgment fair given willingness to follow up with outpatient care; awake and alert; oriented to person/place/situation/time A/P: Capacity: the patient is able to demonstrate an understanding of her condition along with the risks of leaving the hospital AMA. In my judgment she has the capacity to do so. Capacity is subject to change in these situations and psychiatry can be re-consulted in the event of any significant changes in her presentation/situation. Thanks for the consult.
--- NOTE | 2018-09-22 01:44 | DS ---
CC: Dr. Corona Presley; Dr. Ron Irving; Dr. Brian Chu; Dr. Nico Teran ; Dr. Fredy Hull; Dr. John Smart; Dr. Ronnie Jacobs; Dr. Natalio Billy; Dr. Jose Luis Jimenez; Dr. Merle Sol; Lissette Avila, BURN TABLE OPERATOR; Dr. Price Monroy; ; Dr. Jas Nicole; Dr. Ricardo Lopes; Ricardo Salazar, JUAN C; Lanie Nicole, JUAN C; Dr. Romario Chua; Dr. Jamal Schultz * AGAINST MEDICAL ADVICE DISCHARGE SUMMARY: DATE OF ADMISSION: DATE OF DISCHARGE: 09/21/18 DISCHARGE DIAGNOSES: 1. Confusion, possibly due to polysubstance abuse history, although workup was unfinished given the patient left against medical advice. 2. History of polysubstance abuse. 3. Depression, history of; the patient evaluated by Psychiatry (Dr. Presley) for capacity, and the patient able to sign out against medical advice, as the patient desires. DISCHARGE MEDICATIONS: 1. Tylenol 650 mg p.o. q.6 p.r.n. 2. Clobetasol 0.05% ointment topically b.i.d. 3. Gabapentin 800 mg p.o. four times a day. 4. Floranex 2 tabs p.o. daily for the next 14 days. 5. Lysine 500 mg p.o. daily. 6. Methadone mg p.o. daily. 7. Trazodone 600 mg p.o. q.h.s. 8. Vilazodone 40 mg p.o. daily. HISTORY OF PRESENT ILLNESS/HOSPITAL COURSE: The patient is a 48-year-old lady with history of depression, hepatitis C, polysubstance abuse history, and pyoderma gangrenosum to bilateral lower extremities, who was brought to the ED by security after having been found near Radiation Medicine yesterday and appeared to have trouble ambulating with a walker. On arrival to the emergency room, the patient mentioned that she did not want to get admitted. However, she appeared confused and agitated, and was thought not to be answering questions appropriately. She was then offered admission and out of frustration , the patient mentioned that if she gets admitted, she will "kill herself." She became more and more altered mentally in the ER and was supposedly given Narcan, which improved her mental status, and was brought back to the ED and admitted to the floor, and was placed on one-to-one. She was seen by Dr. Presley the following day, who mentioned that she has capacity and once again, the patient expressed that she would like to go against medical advice and hence this summary. Of note, the patient also refused to be examined by my person prior to her discharge and we will defer. REVIEW OF SYSTEMS: Could not be assessed appropriately given the patient is argumentative and very tangential. TIME SPENT: The total time spent evaluating the patient, reviewing pertinent data, and appropriate documentation is 45 minutes. [id number]/[facility] #: [id number] MTDD
== END 2018-09-21 14:45 | disposition home or self-care (01) ==
LOC: ED 10:56 → MED 14:26
PROVIDERS: ADMIT Internal Medicine; ATTEND Student in an Organized Health Care Education/Training Program
DX: R41.0 Disorientation, unspecified (principal); F19.90 Other psychoactive substance use, unspecified, uncomplicated; F32.9 Major depressive disorder, single episode, unspecified; F17.210 Nicotine dependence, cigarettes, uncomplicated; M79.7 Fibromyalgia; Z86.19 Personal history of other infectious and parasitic diseases; Z86.14 Personal history of Methicillin resistant Staphylococcus aureus infection; Z53.21 Procedure and treatment not carried out due to patient leaving prior to being seen by health care provider; Z88.8 Allergy status to other drugs, medicaments and biological substances
CPT/HCPCS: 36415; 80053; 82550; 83605; 84484; 85025; 85610; 87040; 93005; 96372; 96374; 99284; A9270-GY; G0378; J2310

== ENCOUNTER 2019-03-29 12:41 | Emergency (ER) | payer OTHER ==
[2019-03-29 13:26] LABS: ABS Basophils 0.1 10^3/ul (0-0.2); ABS Eosinophils 0.2 10^3/ul (0-0.6); ABS Lymphocytes 1.2 10^3/ul (1.0-4.8); ABS Monocytes 0.5 10^3/ul (0-0.8); Eosinophil % 2.6 %; Hematocrit 38 % (35-47); Hemoglobin 12.6 g/dL (12.0-16.0); Lymphocyte % 20.3 %; Mean Corpuscular HGB Conc 34 g/dL (31-36); Mean Corpuscular Hemoglobin 29 pg (27-31); Mean Corpuscular Volume 87 fL (80-97); Platelet Count 447 10^3/uL (150-450); Red Blood Count 4.32 10^6 /uL (3.70-4.87); Red Cell Distribution Width 15 % (10-15)
[2019-03-29 13:53] LABS: ALT 7 U/L (7-52); AST 14 U/L (13-39); Albumin 3.5 g/dL (3.2-5.2); Albumin/Globulin Ratio 0.9 (1-3); Alkaline Phosphatase 81 U/L (34-104); BUN/Creatinine Ratio 10.7 (8-20); Blood Urea Nitrogen 16 mg/dL (6-24); CO2 Carbon Dioxide 23 mmol/L (22-32); Calcium 9.2 mg/dL (8.6-10.3); EGFR African American 45.2 (>60); EGFR Non-African American 37.4 (>60); Globulin 4.1 g/dL (2-4); Glucose 94 mg/dL (70-100); Sodium 141 mmol/L (135-145); Total Protein 7.6 g/dL (6.4-8.9)
[2019-03-29 13:54] LABS: Acetaminophen < 15 mcg/mL; Alcohol < 10 mg/dL (<10); Anion Gap 6 mmol/L (2-11); Chloride 112 mmol/L (101-111); Salicylate < 2.50 mg/dL (<30)
[2019-03-29 14:01] LABS: TSH (Thyroid Stimulating Horm) 1.39 mcIU/mL (0.34-5.60)
[2019-03-29] MEDS: LORazepam TAB(*) 1 MG PO ONE (15:53)
[2019-03-29] MEDS: Gabapentin CAP(*) 400 MG PO ONE (15:54)
--- NOTE | 2019-03-29 16:22 | ED ---
Psychiatric Complaint - HPI Summary HPI Summary: Patient is a 48-year-old female who presents to the ED as a 945. Patient endorses SI to cancel her. States she thinks she may be having suicidal thoughts. She denies any plan. She denies any history of drug or alcohol use. Denies history of previous suicidal attempts. Currently on methadone. Denies any self-harm. 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 These areas are wrapped. On arrival, she is refusing to talk to provider her about why she is here, stating "I just want my bandages changed and go home." On arrival, patient states "I don't know" when asked if she was suicidal. - History Of Current Complaint Chief Complaint: EDSuicidal Time Seen by Provider: 03/29/19 12:51 Hx Obtained From: Patient Hx Last Menstrual Period: 04/13/17 ?: No Onset/Duration: Sudden Onset Timing: Constant Severity Initially: Moderate Severity Currently: Moderate Aggravating Factor(s): Nothing Alleviating Factor(s): Nothing Associated Signs And Symptoms: Positive: Negative Has Suicidal: Reports: Thoughts - Risk Factor(s) Completed Suicide Risk Factors: Negative - Allergies/Home Medications Allergies/Adverse Reactions: Allergies Allergy/AdvReac Type Severity Reaction Status Date / Time divalproex sodium Allergy Swelling Verified 03/29/19 12:49 [From Depakote] duloxetine [From Cymbalta] Allergy See Comment Verified 03/29/19 12:49 kaleb Allergy Shortness Verified 03/29/19 12:49 of Breath pregabalin [From Lyrica] Allergy Anaphylatic Verified 03/29/19 12:49 Shock PMH/Surg Hx/FS Hx/Imm Hx Previously Healthy: Yes Endocrine/Hematology History: Denies: Hx Diabetes Cardiovascular History: Denies: Hx Hypertension, Hx Pacemaker/ICD Respiratory History: Denies: Hx Asthma, Hx Chronic Obstructive Pulmonary Disease (COPD) - never diagnosed, but extensive smoking hx History: Denies: Hx Dialysis, Hx Renal Disease Sensory History: Reports: Hx Contacts or Glasses Denies: Hx Hearing Aid, Hx Hearing Problem Opthamlomology History: Reports: Hx Contacts or Glasses Neurological History: Reports: Hx Seizures Psychiatric History: Reports: Hx Anxiety, Hx Eating Disorder - anorexia, Hx Depression, Hx Substance Abuse Denies: Hx Panic Disorder, Hx of Violent Episodes Against Others - Surgical History Surgery Procedure, Year, and Place: C SECTION - X2, TUBAL LIGATION, GALL BLADDER 2012 - Immunization History Hx Pertussis Vaccination: No Immunizations Up to Date: Yes Infectious Disease History: No Infectious Disease History: Reports: Hx Hepatitis - HEP C, Hx of Known/ Suspected MRSA - nose 2009 Denies: Hx Clostridium Difficile, Hx Human Immunodeficiency Virus (HIV), Hx Shingles, Hx Tuberculosis, Hx Known/Suspected VRE, 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, History Other Infectious Disease, Traveled Outside the [place] in Last 30 Days - Family History Known Family History: Positive: Other - Bipolar disorder, alcoholism Negative: Cardiac Disease, Hypertension, Diabetes - Social History Occupation: Unemployed Lives: Alone Alcohol Use: None Hx Substance Use: Yes Substance Use Type: Reports: None Substance Use Comment - Amount & Last Used: 04/29/17 Hx Tobacco Use: Yes Smoking Status (MU): Heavy Every Day Tobacco Smoker Type: Cigarettes Amount Used/How Often: 1 PPD Length of Time of Smoking/Using Tobacco: 32 years Have You Smoked in the Last Year: Yes Review of Systems Constitutional: Negative Negative: Fever, Chills, Fatigue, Skin Diaphoresis Negative: Palpitations, Chest Pain Negative: Shortness Of Breath, Cough Genitourinary: Negative Positive: no symptoms reported, see HPI Negative: Arthralgia, Myalgia Skin: Negative Positive: Other - bilateral (several) ulcerations measusing between 2-8cm in diameter to lower extremities, no weeping, no swelling or erythema Neurological: Negative Positive: Anxious, Depressed All Other Systems Reviewed And Are Negative: Yes Physical Exam Triage Information Reviewed: Yes Vital Signs On Initial Exam: Initial Vitals Temp Pulse Resp BP Pulse Ox 96.6 F 83 16 99/77 95 03/29/19 12:42 03/29/19 12:42 03/29/19 12:42 03/29/19 12:42 03/29/19 12:42 Vital Signs Reviewed: Yes Appearance: Positive: Well-Appearing Skin: Positive: Other - bilateral (several) ulcerations measusing between 2-8cm in diameter to lower extremities, no weeping, no swelling or erythema Neck: Positive: No Lymphadenopathy Respiratory/Lung Sounds: Positive: Clear to Auscultation, Breath Sounds Present Cardiovascular: Positive: Pulses are Symmetrical in both Upper and Lower Extremities Musculoskeletal: Positive: Strength/ROM Intact Neurological: Positive: Sensory/Motor Intact, Alert, Oriented to Person Place, Time Psychiatric: Positive: Anxious, Patient Uncooperative for Exam AVPU Assessment: Alert Diagnostics - Vital Signs Vital Signs Temp Pulse Resp BP Pulse Ox 03/29/19 15:53 16 03/29/19 12:42 96.6 F 83 16 99/77 95 - Laboratory Lab Results: Lab Results 03/29/19 03/29/19 Range/Units 13:19 13:19 WBC 6.0 (3.5-10.8) 10^3/uL RBC 4.32 (3.70-4.87) 10^6 /uL Hgb 12.6 (12.0-16.0) g/dL Hct 38 (35-47) % MCV 87 (80-97) fL MCH 29 (27-31) pg MCHC 34 (31-36) g/dL RDW 15 (10-15) % Plt Count 447 (150-450) 10^3/uL MPV 7.0 L (7.4-10.4) fL Neut % (Auto) 67.4 % Lymph % (Auto) 20.3 % Teller % (Auto) 8.2 % Eos % (Auto) 2.6 % Baso % (Auto) 1.5 % Absolute Neuts (auto) 4.0 (1.5-7.7) 10^3/ul Absolute Lymphs (auto) 1.2 (1.0-4.8) 10^3/ul Absolute Monos (auto) 0.5 (0-0.8) 10^3/ul Absolute Eos (auto) 0.2 (0-0.6) 10^3/ul Absolute Basos (auto) 0.1 (0-0.2) 10^3/ul Absolute Nucleated RBC 0.0 10^3/ul Nucleated RBC % 0.0 Sodium 141 (135-145) mmol/L Potassium 4.0 (3.5-5.0) mmol/L Chloride 112 H (101-111) mmol/L Carbon Dioxide 23 (22-32) mmol/L Anion Gap 6 (2-11) mmol/L BUN 16 (6-24) mg/dL Creatinine 1.49 H (0.51-0.95) mg/dL Est GFR ( Amer) 45.2 (>60) Est GFR (Non-Af Amer) 37.4 (>60) BUN/Creatinine Ratio 10.7 (8-20) Glucose 94 (70-100) mg/dL Calcium 9.2 (8.6-10.3) mg/dL Total Bilirubin 0.20 (0.2-1.0) mg/dL AST 14 (13-39) U/L ALT 7 (7-52) U/L Alkaline Phosphatase 81 (34-104) U/L Total Protein 7.6 (6.4-8.9) g/dL Albumin 3.5 (3.2-5.2) g/dL Globulin 4.1 H (2-4) g/dL Albumin/Globulin Ratio 0.9 L (1-3) TSH 1.39 (0.34-5.60) mcIU/mL Salicylates < 2.50 (<30) mg/dL Acetaminophen < 15 mcg/mL Serum Alcohol < 10 (<10) mg/dL Result Diagrams: 03/29/19 13:19 03/29/19 13:19 Lab Statement: Any lab studies that have been ordered have been reviewed, and results considered in the medical decision making process. Course/Dx - Course Course Of Treatment: On arrival into the ED, the patient is evaluated for suicidal ideation. She states "I don't know" when asked if she has suicidal thoughts right now. She states she's had these in the past, but is unsure if she is having them currently. She refuses to further discuss this with the provider. She is requesting to have her bandages changed. Bandages to the bilateral lower extremities are removed and there are large deep ulcerations to the bilateral lower extremities. She states she has a history of pyoderma gangrenosum 9 months. She's been seen by several physicians for unable to treat this. She continues to change out the bandages at home. Occlusive gauze applied, Telfa applied and gauze wrapped. Mental health evaluation completed. Patient is requesting Ativan and her normal dose of gabapentin for her anxiety. She is given both medications in the ED. patient seen by Dr. Presley in the ED. Cleared for discharge. - Differential Dx/Clinical Impression Differential Diagnosis/HQI/PQRI: Positive: Suicide Attempt, Suicidal Ideation, Suicidal Gesture Provider Diagnosis: Suicidal ideation, Opioid-induced mood disorder Discharge - Sign-Out/Discharge Documenting (check all that apply): Patient Departure Patient Received Moderate/Deep Sedation with Procedure: No - Discharge Plan Condition: Good Disposition: HOME Patient Education Materials: Depression (ED), Suicide Prevention (ED), Opioid Use Disorder (ED) Referrals: Methadone,Clinic [Other] Lupe Snowden MD [Primary Care Provider] - - Billing Disposition and Condition Condition: GOOD Disposition: Home
[2019-03-29 17:18] VITALS: BP 111/68
== END 2019-03-29 17:13 | disposition home or self-care (01) ==
LOC: ED 12:41
DX: F11.94 Opioid use, unspecified with opioid-induced mood disorder (principal); R45.851 Suicidal ideations; F11.90 Opioid use, unspecified, uncomplicated; F17.210 Nicotine dependence, cigarettes, uncomplicated; Z79.899 Other long term (current) drug therapy
CPT/HCPCS: 36415; 80053; 80320; 80329; 84443; 85025; 99284; A9270-GY; G0480

== ENCOUNTER 2020-01-30 13:49 | Emergency (ER) | payer OTHER ==
--- NOTE | 2020-01-30 14:24 | ED ---
Complex/Multi-Sys Presentation - HPI Summary HPI Summary: Pt. is a 49 y.o female who presents to the ER for increased leg edema x several days. Pt. has a hx of fibromyalgia, opioid dependence, pyoderma gangrenous, clotting d/o. Pt. currently on xarelto. Pt. denies cp, sob, fever, cough, abd. pain. She notes chronic wounds to the back of lower legs she has had for about a year. Pt. states she has noticed increased pain and drainage from wounds. Sxs are moderate in severity. No current modifying factors. Pt. notes she does not take her xarelto consistently. - History Of Current Complaint Chief Complaint: EDExtremityLower Time Seen by Provider: 01/30/20 14:05 Hx Obtained From: Patient - Allergies/Home Medications Allergies/Adverse Reactions: Allergies Allergy/AdvReac Type Severity Reaction Status Date / Time divalproex sodium Allergy Swelling Verified 03/29/19 12:49 [From Depakote] duloxetine [From Cymbalta] Allergy See Comment Verified 03/29/19 12:49 kaleb Allergy Shortness Verified 03/29/19 12:49 of Breath pregabalin [From Lyrica] Allergy Anaphylatic Verified 03/29/19 12:49 Shock Home Medications: Home Medications Gabapentin CAP(*) [Neurontin 400 mg CAP(*)] 800 mg PO QID 01/24/14 [History Confirmed 01/30/20] Vilazodone (NF) [Viibryd (NF)] 40 mg PO DAILY 03/10/18 [History Confirmed ] Lysine 500 mg PO DAILY 09/20/18 [History Confirmed 01/30/20] Methadone AMIE (NF) 90 mg PO DAILY 09/20/18 [History Confirmed 01/30/20] Cephalexin CAP* [Keflex CAP*] 500 mg PO QID #40 cap 01/30/20 [Rx] Rivaroxaban TAB(*) [Xarelto 10 mg (*)] 10 mg PO BID 01/30/20 [History Confirmed 01/30/20] hydrOXYzine HCL TAB* [Atarax 25 MG TAB*] 25 mg PO DAILY 01/30/20 [History Confirmed 01/30/20] PMH/Surg Hx/FS Hx/Imm Hx Previously Healthy: Yes Endocrine/Hematology History: Denies: Hx Diabetes Cardiovascular History: Denies: Hx Hypertension, Hx Pacemaker/ICD Respiratory History: Denies: Hx Asthma, Hx Chronic Obstructive Pulmonary Disease (COPD) - never diagnosed, but extensive smoking hx History: Denies: Hx Dialysis, Hx Renal Disease Sensory History: Reports: Hx Contacts or Glasses Denies: Hx Hearing Aid, Hx Hearing Problem Opthamlomology History: Reports: Hx Contacts or Glasses Neurological History: Reports: Hx Seizures Psychiatric History: Reports: Hx Anxiety, Hx Eating Disorder - anorexia, Hx Depression, Hx Substance Abuse Denies: Hx Panic Disorder, Hx of Violent Episodes Against Others - Surgical History Surgery Procedure, Year, and Place: C SECTION - X2, TUBAL LIGATION, GALL BLADDER 2012 Infectious Disease History: No Infectious Disease History: Reports: Hx Hepatitis - HEP C, Hx of Known/ Suspected MRSA - nose 2009 Denies: Hx Clostridium Difficile, Hx Human Immunodeficiency Virus (HIV), Hx Shingles, Hx Tuberculosis, Hx Known/Suspected VRE, 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, History Other Infectious Disease, Traveled Outside the [place] in Last 30 Days - Family History Known Family History: Positive: Other - Bipolar disorder, alcoholism Negative: Cardiac Disease, Hypertension, Diabetes - Social History Alcohol Use: None Hx Substance Use: Yes Substance Use Type: Reports: None Substance Use Comment - Amount & Last Used: 04/29/17 Hx Tobacco Use: Yes Smoking Status (MU): Heavy Every Day Tobacco Smoker Type: Cigarettes Amount Used/How Often: 1 PPD Length of Time of Smoking/Using Tobacco: 32 years Have You Smoked in the Last Year: Yes Review of Systems Constitutional: Negative Negative: Fever, Chills Cardiovascular: Negative Negative: Palpitations, Chest Pain Respiratory: Negative Negative: Shortness Of Breath, Cough Gastrointestinal: Negative Positive: Other - pain and swelling to legs. Positive: Other - chronic wounds to lower leg. Neurological/Mental Status: Negative All Other Systems Reviewed And Are Negative: Yes Physical Exam Triage Information Reviewed: Yes Vital Signs On Initial Exam: Initial Vitals Temp Pulse Resp BP Pulse Ox 96.4 F 87 18 123/76 96 01/30/20 13:52 01/30/20 13:52 01/30/20 13:52 01/30/20 13:52 01/30/20 13:52 Vital Signs Reviewed: Yes Appearance: Positive: Well-Appearing - Pt. lying in bed in NAD. Skin: Positive: Warm, Dry Head/Face: Positive: Normal Head/Face Inspection Eyes: Positive: Normal, EOMI Neck: Positive: Supple Respiratory/Lung Sounds: Positive: Clear to Auscultation, Breath Sounds Present. Negative: Decreased Breath Sounds, Rhonchi, Wheezes Cardiovascular: Positive: Normal, RRR Musculoskeletal: Positive: Other - Moderate edema to bilateral legs L>R. Mild warmth. No significant erythema. Large wounds to posterior lower legs. Mild drainage. No significant erythema or foul odor. No surrounding erythema. Neurological: Positive: Normal, CN Intact II-III Psychiatric: Positive: Affect/Mood Appropriate Procedures - Sedation Patient Received Moderate/Deep Sedation with Procedure: No Diagnostics - Vital Signs Vital Signs Temp Pulse Resp BP Pulse Ox 01/30/20 13:52 96.4 F 87 18 123/76 96 - Laboratory Result Diagrams: 01/30/20 14:44 01/30/20 14:44 Lab Statement: Any lab studies that have been ordered have been reviewed, and results considered in the medical decision making process. Complex Multi-Symp Course/Dx Course Of Treatment: Pt with above sxs. Afebrile with stable VS. Moderate edema to legs. Given pt. is not consistently taking xarelto bilateral venous duplex obtained and negative per radiology. CXR neg per radiology. Labs show mild renal insufficiency. Mild elevation in liver enzymes. Given increased drainage and leg swelling will place on keflex. Pt. to f.u with pcp in 2-3 days. TO elevate legs. Will need repeat liver enzymes as well. Will return to er if sxs change or worsen. Pt. understands and agrees with plan. - Diagnoses Provider Diagnoses: Leg edema, Chronic wound of extremity, Wound infection, Elevated liver enzymes - Critical Care Time Critical Care Statement: Critical care time is provided exclusive of any time spent performing procedures. Discharge ED - Sign-Out/Discharge Documenting (check all that apply): Patient Departure - Discharge Plan Condition: Good Disposition: HOME Prescriptions: Cephalexin CAP* [Keflex CAP*] 500 mg PO QID #40 cap Patient Education Materials: Wound Infection (ED), Leg Edema (ED) Referrals: Vishnu Batista CABLE DISPATCHER [Primary Care Provider] - Additional Instructions: Please call your PCP tomorrow for an appointment within 2-3 days for recheck Will need to have liver enzymes rechecked within the week Elevate legs Take antibiotic as directed Return to ER for increased pain, fever, swelling, or if concerned - Billing Disposition and Condition Condition: GOOD Disposition: Home
--- OUTSIDE RECORDS SUMMARY | 2020-01-30 14:46 | XMS REPORT | Continuity of Care Document ---
:1970 External Reference #:[id number] Author Name Vishnu Batista NP Address [address] [facility], [place] [address] Care Team Providers Name Role Phone Dayanna Hale MD - Care Team Information Production Bow Maker [phone] Neurological Surgery Ruma Ortiz MD - Internal Medicine Care Team Information Production Bow Maker Problems Active Problems Provider Date Fibromyalgia Onset: Viral hepatitis C Onset: Alcoholism Onset: Gallstone Onset: Depression Onset: Closed fracture of shaft of clavicle Iron Kaba M.D. Onset: 06/03/2015 Syncope and collapse Leesa Quintanilla MD Onset: 07/10/2015 Fracture malunion Iron Kaba M.D. Onset: 08/08/2015 Strain of rotator cuff capsule Rosas Cameron MD Onset: 11/11/2017 Calcific tendinitis of right shoulder Rosas Cameron MD Onset: 11/11/2017 Neck pain Rosas Cameron MD Onset: 11/11/2017 Subarachnoid hemorrhage Talib Hernandez M.D. Onset: 03/09/2018 Acute renal failure syndrome Gloria Elvis, DRYWALL APPLICATION SUPERVISOR Onset: 08/19/2018 Cellulitis of left lower limb Gloria Elvis DRYWALL APPLICATION SUPERVISOR Onset: 08/19/2018 Long-term current use of opiate Gloria Elvis, DRYWALL APPLICATION SUPERVISOR Onset: 08/20/2018 analgesic drug Cellulitis of right lower limb Yesenia Plunkett MD Onset: 08/31/2018 Feeling suicidal Yesenia Plunkett MD Onset: 08/31/2018 Leukocytosis Yesenia Plunkett MD Onset: 08/31/2018 Pyoderma gangrenosum Pati Haynes D.O. Onset: 09/04/2018 Other psychoactive substance dependence Pati Haynes D.O. Onset: 2017 with other psychoactive substance-induced disorder Gastroesophageal reflux disease Rita Fortune NP Onset: 10/10/2018 Hemorrhoidectomy by simple ligature Rita Fortune NP Onset: 2017 Hepatitis C antibody test positive Rita Fortune NP Onset: 2017 Note: highly reactive Opioid dependence Rita Fortune NP Onset: 10/10/2018 Note: Follows [facility] Pulmonary embolism Vishnu Batista NP Onset: 06/28/2019 Fracture of second lumbar vertebra Vishnu Batista NP Onset: 06/28/2019 Social History Type Date Description Comments Sex Unknown Tobacco Use Start: Unknown Current Cigarette Since age 11 Smoker 1 Pack Daily ETOH Use Denies alcohol use Recreational Drug Use Former Drug User Heroin, recovering. Stopped in late 2013. Tobacco Use Start: Unknown Patient is a current 1 pack cig daily smoker, smokes every day Smoking Status Reviewed: 12/19/19 Patient is a current 1 pack cig daily smoker, smokes every day Exercise Type/Frequency Does not exercise Allergies, Adverse Reactions, Alerts Active Allergies Reaction Severity Comments Date Ginseng Seizure Severe 05/23/2015 Cymbalta suicidal ideation 05/23/2015 Lyrica facial swelling 05/23/2015 Valproic Acid leg swelling 05/23/2015 Duloxetine 08/23/2017 Depakote 10/21/2017 Medications Active Medications SIG Qnty Indications Ordering Provider Date Hydroxyzine HCL 1-2 tablets by 60tabs G47.00 Vishnu Batista NP 12/19/2019 25mg mouth every 6 Tablets hours as needed for anxiety Doxycycline one by mouth 60tabs Price Camp, 11/10/2019 Monohydrate twice daily M.D. 100mg Tablets Xeroform apply to wounds 60units L02.416 Vishnu Batista NP 08/07/2019 Non-Occlusive Oil daily Emulsion Gauze Strip 5"X9" 5"X9" Pads L03.115 L88 Xarelto 1 by mouth every day 30tabs Vishnu Batista NP 07/06/2019 20mg Tablets Fibracol apply daily to wounds 90units Price Camp, 06/28/2019 Collagen-Alginate Wound to help promote wound M.D. Dressing/4" X 8-3/4" healing 10-90% Pads BD 1ML for use weekly with sc 90units Price Camp, 04/05/2019 Syringe/Needle/Slip methotrexate M.D. Tip/Subq/26G X 5/8" 26G X 8" 1 ML Misc Walker Auto Glides/5 use as needed for 1units Price Camp, 10/21/2018 Adjustment Holes/-10/18" support from arthritis MMyrna and seat cushion for -10/18" Misc pyoderma gangrenosum Gabapentin Take 1 Tablet By Mouth 270tabs Price Camp, 800mg Tablets Four Times Daily M.D. Viibryd take 1 tab every in the Unknown 40mg Tablets morning Methadone HCL 1 tab by mouth once a Unknown 118mg Tablets day L-Lysine 1 by mouth every day Unknown 1000mg Tablets Risperidone Unknown 2mg Tablets History Medications Doxycycline Hyclate 1 by mouth twice 60caps Price Camp, 11/08/2019 - a day M.D. 11/10/2019 100mg Capsules Cephalexin take one capsule 28caps L02.416 Vishnu Batista NP 07/07/2019 - 500mg every 6 hours 07/25/2019 Capsules for 7 days Cephalexin take one tablet 40tabs L02.416 Vishnu Batista NP 07/06/2019 - 500mg every 6 hours 07/07/2019 Tablets for 10 days Xarelto 1 tabs by mouth 42tabs Vishnu Batista NP 06/30/2019 - 15mg Tablets twice a day. 07/22/2019 Medications Administered in Office Medication SIG Qnty Indications Ordering Provider Date Records Fee Price Camp M.D. 07/07/2019 Injection Records Fee Price Camp M.D. 05/10/2019 Injection Triamcinolone (Kenalog) Rosas Cameron MD 03/03/2018 Injection Triamcinolone (Kenalog) Rosas Cameron MD 10/21/2017 Injection Triamcinolone (Kenalog) Rosas Cameron MD 10/21/2017 Injection Immunizations Description No Information Available Vital Signs Date Vital Result Comment 12/19/2019 10:43am Height 67 inches 5'7" Weight 153.00 lb Heart Rate 76 /min BP Systolic 127 mmHg BP Diastolic 74 mmHg Body Temperature 97.5 F O2 % BldC Oximetry 96 % BMI (Body Mass Index) 24.0 kg/m2 11/08/2019 8:10am Height 67 inches 5'7" Weight 156.00 lb Heart Rate 94 /min BP Systolic Sitting 122 mmHg BP Diastolic Sitting 80 mmHg Body Temperature 99.3 F Pain Level 9 O2 % BldC Oximetry 98 % BMI (Body Mass Index) 24.4 kg/m2 Results Description No Information Available Procedures Description No Information Available Medical Devices Description No Information Available Encounters Type Date Location Provider Dx Diagnosis Office Visit 11/08/2019 Rheumatology Ander Hernandez Pyoderma 8:00a [facility] M.D. gangrenosum F17.210 Nicotine dependence, cigarettes, uncomplicated G89.29 Other chronic pain Z79.899 Other prison (current) drug therapy Office Visit 09/18/2019 9:00a [facility] Catrina Tiara, I26.99 Other pulmonary [facility] AT M.D. embolism without [place] acute cor pulmonale D68.52 Prothrombin gene mutation L88 Pyoderma gangrenosum F17.210 Nicotine dependence, cigarettes, uncomplicated Office Visit 07/25/2019 11:40a [facility] Internal Vishnu Batista NP L88 Pyoderma Medicine - [facility] gangrenosum G89.29 Other chronic pain I26.99 Other pulmonary embolism without acute cor pulmonale Office Visit 07/06/2019 2:40p [facility] Internal Vishnu Batista L02.416 Cutaneous abscess Medicine - [facility] DRYWALL APPLICATION SUPERVISOR of left lower limb I27.82 Chronic pulmonary embolism Office Visit 06/28/2019 9:00a Rheumatology Ander Hernandez Pyoderma [facility] M.D. gangrenosum R60.0 Localized edema Z79.899 Other prison (current) drug therapy E55.9 Vitamin D deficiency, unspecified Office Visit 06/28/2019 10:20a [facility] Internal Vishnu Batista I27.82 Chronic pulmonary Medicine - [facility] DRYWALL APPLICATION SUPERVISOR embolism Assessments Date Code Description Provider 12/19/2019 Ander Pyoderma gangrenosum Vishnu Batista NP 12/19/2019 G89.29 Other chronic pain Vishnu Lester, DRYWALL APPLICATION SUPERVISOR 12/19/2019 F32.9 Major depressive disorder, single episode, Vishnu Lester, DRYWALL APPLICATION SUPERVISOR unspecified 12/19/2019 I26.99 Other pulmonary embolism without acute cor Vishnu Lester, DRYWALL APPLICATION SUPERVISOR pulmonale 12/19/2019 F41.1 Generalized anxiety disorder Vishnu Lester, DRYWALL APPLICATION SUPERVISOR 12/19/2019 G47.00 Insomnia, unspecified Vishnu Lester, DRYWALL APPLICATION SUPERVISOR 11/08/2019 L88 Pyoderma gangrenosum Price Camp M.D. 11/08/2019 F17.210 Nicotine dependence, cigarettes, uncomplicated Price Camp M.D. 11/08/2019 G89.29 Other chronic pain Price Camp M.D. 11/08/2019 Z79.899 Other middle or intermediate school principal (current) drug therapy Price Camp M.D. 09/18/2019 I26.99 Other pulmonary embolism without acute cor Catrina Menjivar M.D. pulmonale 09/18/2019 D68.52 Prothrombin gene mutation Catrina Menjivar M.D. 09/18/2019 L88 Pyoderma gangrenosum Catrina Menjivar M.D. 09/18/2019 F17.210 Nicotine dependence, cigarettes, uncomplicated Catrina Menjivar M.D. 07/25/2019 L88 Pyoderma gangrenosum Vihsnu Lester, DRYWALL APPLICATION SUPERVISOR 07/25/2019 G89.29 Other chronic pain Vishnu Lester, DRYWALL APPLICATION SUPERVISOR 07/25/2019 I26.99 Other pulmonary embolism without acute cor Vishnu Lester, DRYWALL APPLICATION SUPERVISOR pulmonale 07/07/2019 F19.288 Other psychoactive substance dependence with Price Camp M.D. other psychoactive substance-induced disorder 07/07/2019 F32.9 Major depressive disorder, single episode, Price Camp M.D. unspecified 07/07/2019 I60.9 Nontraumatic subarachnoid hemorrhage, Price Camp M.D. unspecified 07/07/2019 L03.115 Cellulitis of right lower limb Price Camp M.D. 07/06/2019 L02.416 Cutaneous abscess of left lower limb Visnhu Lester, DRYWALL APPLICATION SUPERVISOR 07/06/2019 I27.82 Chronic pulmonary embolism Vishnu Lester, DRYWALL APPLICATION SUPERVISOR 06/28/2019 I27.82 Chronic pulmonary embolism Vishnu Batista NP 06/28/2019 L88 Pyoderma gangrenosum Price Camp M.D. 06/28/2019 R60.0 Localized edema Price Camp M.D. 06/28/2019 Z79.899 Other middle or intermediate school principal (current) drug therapy Price Camp M.D. 06/28/2019 E55.9 Vitamin D deficiency, unspecified Price Camp M.D. Plan of Treatment 12/19/2019 - Vishnu Batista NPL88 Pyoderma gangrenosumComments:Continue changing your leg dressings daily. I recommend restarting the doxycycline as prescribed by Dr. Camp. You missed your follow up with Dr. Camp on the . It is important to reschedule that appointment. As we discussed, I recommend following with a wound clinic.G89.29 Other chronic painF32.9 Major depressive disorder, single episode, unspecifiedComments:It is important to take your medications daily. if you would like a referral to mental health srinivasa paige.Referral:Rosemarie Perez N.P., Nurse BdpwjnwdenljE63.99 Other pulmonary embolism without acute cor pulmonaleComments:It is EXTREMELY important that you take the Xarelto daily.I recommend contacting Dr. Menjivar to set up a follow up appointment.F41.1 Generalized anxiety disorderReferral:Rosemarie Perez N.P., Nurse GfawxjlcsaexR54.00 Insomnia, unspecifiedNew Medication:Hydroxyzine HCL 25 mg - 1-2 tablets by mouth every 6 hours as needed for anxiety Functional Status Description No Information Available Mental Status Description No Information Available Referrals Refer to Reason for Referral Status Appt Date Rosemarie Perez N.P. Created [address] [place] [address] [phone] Vishnu Amado DO Sent [address] [place] [address] [phone] Lo Ghotra MD Sent [address] [facility] [place], [place] [address] [phone] Catrina Menjivar MD Sent 09/04/2019 [address] [place] [address] [phone]
--- OUTSIDE RECORDS SUMMARY | 2020-01-30 14:46 | XMS REPORT | Continuity of Care Document ---
:1970 External Reference #:[id number] Author Name Vishnu Batista NP (transmitted by agent of provider Sommer Leslie) Address [address] [facility], [place] [address] Care Team Providers Name Role Phone Dayanna Hale MD - Care Team Information Continuous Mining Machine Lode Miner [phone] Neurological Surgery Ruma Ortiz MD - Internal Medicine Care Team Information Continuous Mining Machine Lode Miner [phone] Problems Active Problems Provider Date Fibromyalgia Onset: [...] 03/09/2018 Acute renal failure syndrome Gloria Elvis, PHP ARCHITECT Onset: 08/19/2018 Cellulitis of left lower limb Gloria Elvis, PHP ARCHITECT Onset: 08/19/2018 Long-term current use of opiate Gloria Elvis, PHP ARCHITECT Onset: 08/20/2018 analgesic drug Cellulitis of right [...] Rita Fortune NP Onset: 10/10/2018 Note: Follows [facility] Pulmonary embolism Vishnu Batista NP [...] BD 1ML for use weekly with sc 90unann Price Camp, 04/05/2019 Syringe/Needle/Slip methotrexate M.D. Tip/Subq/26G X 8" 26G X 8" 1 ML Misc Walker Auto Glides/5 use as needed for 1un Price Camp, 10/21/2018 Adjustment Holes/-10/18" support from arthritis M.D. and seat cushion for -10/18" Misc pyoderma [...] 6 hours 07/07/2019 Tablets for 10 days Medications Administered in Office Medication SIG Qnty [...] Date Location Provider Dx Diagnosis Office Visit 12/19/2019 [facility] Internal Vishnuammy Batista PHP ARCHITECT L88 Pyoderma gangrenosum 10:40a [facility] - [facility] G89.29 Other chronic pain F32.9 Major depressive disorder, single episode, unspecified I26.99 Other pulmonary embolism without acute cor pulmonale F41.1 Generalized anxiety disorder G47.00 Insomnia, unspecified Office Visit 11/08/2019 8:00a Rheumatology Price Camp, L88 [facility]a [facility] M.D. gangrenosum F17.210 Nicotine dependence, cigarettes, uncomplicated G89.29 Other chronic pain Z79.899 Other terminal press operator (current) drug therapy Office Visit 09/18/2019 9:00a [facility] Catrina Menjivar, I26.99 Other pulmonary [facility] AT M.D. embolism without [place] acute cor pulmonale D68.52 Prothrombin gene mutation L88 Pyoderma gangrenosum F17.210 Nicotine dependence, cigarettes, uncomplicated Office Visit 07/25/2019 11:40a [facility] Vishnuammy Batista PHP ARCHITECT L88 [facility] G89.29 Other chronic pain I26.99 Other pulmonary embolism without acute cor pulmonale Office Visit 07/06/2019 2:40p [facility] Vishnu Lester, L02.416 [facility]aneous [facility] PHP ARCHITECT of left lower limb I27.82 Chronic pulmonary embolism Assessments Date Code Description Provider 12/19/2019 L88 Pyoderma gangrenosum Vishnuammy Batista PHP ARCHITECT 12/19/2019 G89.29 Other chronic pain Vishnuammy Batista PHP ARCHITECT 12/19/2019 F32.9 Major depressive disorder, single episode, Vishnu Lester, PHP ARCHITECT unspecified 12/19/2019 I26.99 Other pulmonary embolism without acute cor Vishnu Lester, PHP ARCHITECT pulmonale 12/19/2019 F41.1 Generalized anxiety disorder Vishnu Lester, PHP ARCHITECT 12/19/2019 G47.00 Insomnia, unspecified Vishnu Lester, PHP ARCHITECT 11/08/2019 L88 Pyoderma gangrenosum Price Camp M.D. 11/08/2019 F17.210 Nicotine dependence, cigarettes, uncomplicated Price Camp M.D. 11/08/2019 G89.29 Other chronic pain Price Camp M.D. 11/08/2019 Z79.899 Other terminal press operator (current) drug therapy Price Camp M.D. 09/18/2019 I26.99 Other pulmonary embolism without acute cor Catrina Menjivar M.D. pulmonale 09/18/2019 D68.52 Prothrombin gene mutation Catrina Menjivar M.D. 09/18/2019 L88 Pyoderma gangrenosum Catrina Menjivar M.D. 09/18/2019 F17.210 Nicotine dependence, cigarettes, uncomplicated Catrina Menjivar M.D. 07/25/2019 L88 Pyoderma gangrenosum Vishnu Lester, PHP ARCHITECT 07/25/2019 G89.29 Other chronic pain Vishnuammy Batista, PHP ARCHITECT 07/25/2019 I26.99 Other pulmonary embolism without acute cor Vishnuammy Batista, PHP ARCHITECT pulmonale 07/07/2019 F19.288 Other psychoactive substance dependence with Price Camp M.D. other psychoactive substance-induced disorder 07/07/2019 F32.9 Major depressive disorder, single episode, Price Camp M.D. unspecified 07/07/2019 I60.9 Nontraumatic subarachnoid hemorrhage, Price Camp M.D. unspecified 07/07/2019 L03.115 Cellulitis of right lower limb Price Camp M.D. 07/06/2019 L02.416 Cutaneous abscess of left lower limb Vishnu Batista NP 07/06/2019 I27.82 Chronic pulmonary embolism Vishnu Batista NP Plan of Treatment 12/19/2019 - Vishnu Batista NPL88 Pyoderma gangrenosumComments:Continue changing your leg dressings daily. I recommend restarting the doxycycline as prescribed by Dr. aCmp. You missed your follow up with Dr. Camp on the . It is important to reschedule that appointment. As we discussed, I recommend following with a wound clinic.Referral:Jhony Epstein MD, Psych & Neuro: WhmfftxnmE17.29 Other chronic painReferral:Jhony Epstein MD, Psych & Neuro :KvlorzzxmY17.9 Major depressive disorder, single episode, unspecifiedComments: It is important to take your medications daily.Referral:Rosemarie Perez N.P., Nurse UuxzyyzybbpzM17.99 Other pulmonary embolism without acute cor pulmonaleComments:It is EXTREMELY important that you take the Xarelto daily.I recommend contacting Dr. Menjivar to set up a follow up appointment.F41.1 Generalized anxiety disorderReferral:Rosemarie Perez N.P., Nurse GvnlzjipldhoO63.00 Insomnia, unspecifiedNew Medication:Hydroxyzine HCL 25 mg - 1 -2 tablets by mouth every 6 hours as needed for anxiety Functional Status Description No Information Available Mental Status Description No Information Available Referrals Refer to Reason for Referral Status Appt Date Rosemarie Perez NJes Created [address] [place], [place] [id number] [phone] Jhony Epstein MD Sent [address] [place] [address] [phone] Vishnu Amado DO Sent [address] [place] [address] [phone] Lo Ghotra MD Sent [address] [facility] [address] [place], [place] [address] [phone] Catrina Menjivar MD Sent 09/04/2019 [address] [place] [address] [phone]
[2020-01-30 14:55] LABS: ABS Eosinophils 0.3 10^3/ul (0-0.6); ABS Lymphocytes 0.9 10^3/ul (1.0-4.8); ABS Monocytes 0.3 10^3/ul (0-0.8); ABS Neutrophils 5.5 10^3/ul (1.5-7.7); Eosinophil % 3.7 %; Hematocrit 36 % (35-47); Lymphocyte % 12.9 %; Mean Corpuscular HGB Conc 34 g/dL (31-36); Mean Corpuscular Hemoglobin 29 pg (27-31); Mean Corpuscular Volume 86 fL (80-97); Platelet Count 325 10^3/uL (150-450); Red Blood Count 4.17 10^6 /uL (3.70-4.87); Red Cell Distribution Width 16 % (10-15); White Blood Count 6.9 10^3/uL (3.5-10.8)
[2020-01-30 15:12] LABS: Albumin 3.7 g/dL (3.2-5.2); Albumin/Globulin Ratio 0.9 (1-3); BUN/Creatinine Ratio 11.1 (8-20); Calcium 8.9 mg/dL (8.6-10.3); EGFR African American 50.4 (>60); EGFR Non-African American 41.7 (>60); Potassium 3.9 mmol/L (3.5-5.0); Total Bilirubin 0.3 mg/dL (0.2-1.0); Total Protein 7.7 g/dL (6.4-8.9)
[2020-01-30 15:40] LABS: Activated Partial Thrombo Time 35.1 seconds (26.0-38.0); INR 0.9 (0.82-1.09)
[2020-01-30 16:17] VITALS: BP 119/77
== END 2020-01-30 16:16 | disposition home or self-care (01) ==
LOC: ED 13:49
DX: R60.9 Edema, unspecified (principal); S81.809A Unspecified open wound, unspecified lower leg, initial encounter; F17.210 Nicotine dependence, cigarettes, uncomplicated; M79.605 Pain in left leg; M79.604 Pain in right leg; L08.9 Local infection of the skin and subcutaneous tissue, unspecified; X58.XXXA Exposure to other specified factors, initial encounter; Y92.9 Unspecified place or not applicable; R94.5 Abnormal results of liver function studies
CPT/HCPCS: 36415; 71045; 80053; 83880; 85025; 85610; 85730; 93970; 99283

== ENCOUNTER 2022-06-30 11:43 | Observation (INO) ==
[2022-06-30 14:20] LABS: ABS Eosinophils 0.3 10^3/ul (0-0.6); ABS Lymphocytes 0.9 10^3/ul (1.0-4.8); ABS Monocytes 0.3 10^3/ul (0-0.8); ABS Neutrophils 4.6 10^3/ul (1.5-7.7); Eosinophil % 4.9 %; Hematocrit 36 % (35-47); Hemoglobin 12.1 g/dL (12.0-16.0); Mean Corpuscular HGB Conc 33 g/dL (31-36); Mean Corpuscular Hemoglobin 28 pg (27-31); Mean Corpuscular Volume 86 fL (80-97); Mean Platelet Volume 7.5 fL (7.4-10.4); Platelet Count 313 10^3/uL (150-450); Red Blood Count 4.25 10^6 /uL (3.70-4.87); Red Cell Distribution Width 15 % (10-15); White Blood Count 6.3 10^3/uL (3.5-10.8)
[2022-06-30 15:07] LABS: Blood Urea Nitrogen 27 mg/dL (6-24); CO2 Carbon Dioxide 23 mmol/L (22-32); Calcium 8.7 mg/dL (8.6-10.3); Chloride 105 mmol/L (101-111); Glucose 82 mg/dL (70-100); Sodium 136 mmol/L (135-145); eGFR CKD-EPI 27.2 (>60)
[2022-06-30 15:16] LABS: Anion Gap 8 mmol/L (2-11)
[2022-06-30] MEDS ORDERED: Lactated Ringers 1000 ml BAG 1,000 ML IV ONE (15:27)
[2022-06-30] MEDS ORDERED: Cefepime 2 GM in Dextrose 2 GM/50 ML BAG IV ONE (15:27)
[2022-06-30 21:50] LABS: Calcium 8.1 mg/dL (8.6-10.3); eGFR CKD-EPI 31.8 (>60)
[2022-06-30] MEDS ORDERED: Ondansetron 4 mg VIAL 2 MG/ML 2 ml VIAL IV PRN (22:18)
[2022-06-30] MEDS ORDERED: Albuterol HFA INHALER 8 gm MDI INH PRN (22:20)
[2022-06-30] MEDS ORDERED: Vancomycin 1,000 MG in NS 0.9% 250 ml 250 ML IVPB ONE (22:21)
[2022-06-30] MEDS ORDERED: NS 0.9% 1000 ml BAG 1,000 ML IV SCH (22:30)
[2022-06-30] MEDS ORDERED: Vancomycin per Pharmacy 1 EA NOTE FOLLOW UP SCH (23:00)
[2022-07-01] MEDS: Morphine ORAL.SOLN 10 mg 2 mg/ml UDC 5 ml (10 mg) PO PRN ×4 (02:12→20:33)
[2022-07-01] MEDS ORDERED: fentaNYL 100 mcg/2 ml 50 MCG/ML VIAL IV SLOW PU ONE (02:56)
[2022-07-01] MEDS ORDERED: CMCS: Vilazodone 40 mg TAB (NF) PO SCH (09:00)
[2022-07-01] MEDS ORDERED: Methadone ORALSYR CONC LIQ 10 MG/ML PO SCH (09:00)
[2022-07-01] MEDS ORDERED: Nicotine GUM 4MG FRUIT FLAVOR PO PRN (09:29)
[2022-07-01 09:51] LABS: ABS Eosinophils 0.2 10^3/ul (0-0.6); ABS Lymphocytes 0.7 10^3/ul (1.0-4.8); ABS Monocytes 0.3 10^3/ul (0-0.8); ABS Neutrophils 4.7 10^3/ul (1.5-7.7); Eosinophil % 2.6 %; Hematocrit 33 % (35-47); Hemoglobin 10.7 g/dL (12.0-16.0); Lymphocyte % 12.4 %; Mean Corpuscular HGB Conc 33 g/dL (31-36); Mean Corpuscular Hemoglobin 28 pg (27-31); Mean Corpuscular Volume 85 fL (80-97); Platelet Count 317 10^3/uL (150-450); Red Blood Count 3.88 10^6 /uL (3.70-4.87); Red Cell Distribution Width 16 % (10-15)
[2022-07-01] MEDS ORDERED: Nicotine PATCH 21 MG/24 HR PATCH TRANSDERM SCH (10:00)
[2022-07-01 10:47] LABS: Calcium 8.4 mg/dL (8.6-10.3); Potassium 4.6 mmol/L (3.5-5.0); eGFR CKD-EPI 38.3 (>60)
[2022-07-01 16:08] VITALS: BP 93/52
[2022-07-01] MEDS ORDERED: Vancomycin 1000 MG in NS 0.9% 250 ML IVPB SCH (22:00)
[2022-07-03] MEDS ORDERED: Vancomycin Trough Check NOTE FOLLOW UP ONE (21:30)
== END 2022-07-01 21:46 | disposition left against medical advice (07) ==
LOC: ED 11:43 → EDHOLD 11:43 → MEDTELE 07-01 02:42
PROVIDERS: ADMIT Student in an Organized Health Care Education/Training Program; ATTEND Student in an Organized Health Care Education/Training Program

== ENCOUNTER 2022-07-03 17:41 | Inpatient (IN) ==
[2022-07-03] MEDS ORDERED: NS 0.9% 1000 ml BAG 1,000 ML IV ONE (18:06)
[2022-07-03 18:43] LABS: ABS Basophils 0.1 10^3/ul (0-0.2); ABS Eosinophils 0.2 10^3/ul (0-0.6); ABS Lymphocytes 1.8 10^3/ul (1.0-4.8); ABS Monocytes 0.7 10^3/ul (0-0.8); Eosinophil % 3.6 %; Hematocrit 36 % (35-47); Hemoglobin 11.5 g/dL (12.0-16.0); Lymphocyte % 25.7 %; Mean Corpuscular HGB Conc 32 g/dL (31-36); Mean Corpuscular Hemoglobin 28 pg (27-31); Mean Corpuscular Volume 86 fL (80-97); Mean Platelet Volume 6.9 fL (7.4-10.4); Nucleated Red Blood Cells % 0.1; Platelet Count 413 10^3/uL (150-450); Red Blood Count 4.15 10^6 /uL (3.70-4.87); Red Cell Distribution Width 15 % (10-15); White Blood Count 6.8 10^3/uL (3.5-10.8)
[2022-07-03] MEDS ORDERED: Vancomycin 1,500 MG in NS 0.9% 250 ml 250 ML IVPB ONE (18:53)
[2022-07-03 19:36] LABS: Albumin 3.3 g/dL (3.2-5.2); Albumin/Globulin Ratio 0.8 (1-3); C Reactive Protein 76.29 mg/L (<8.01); Calcium 8.5 mg/dL (8.6-10.3); Potassium 4.5 mmol/L (3.5-5.0); Total Bilirubin 0.2 mg/dL (0.2-1.0); Total Protein 7.3 g/dL (6.4-8.9); eGFR CKD-EPI 23.9 (>60)
[2022-07-03] MEDS ORDERED: Ondansetron 4 mg VIAL 2 MG/ML 2 ml VIAL IV PRN (19:39)
[2022-07-03] MEDS ORDERED: Vancomycin per Pharmacy 1 EA NOTE FOLLOW UP SCH (20:00)
[2022-07-03] MEDS ORDERED: Albuterol HFA INHALER 8 gm MDI INH PRN (20:50)
[2022-07-03] MEDS ORDERED: Nicotine GUM 4MG FRUIT FLAVOR PO PRN (22:02)
[2022-07-03] MEDS ORDERED: Nicotine PATCH 21 MG/24 HR PATCH TRANSDERM PRN (22:02)
[2022-07-03] MEDS ORDERED: oxyCODONE/Acetamin 5/325 mg TAB PO PRN ×2 (22:14)
[2022-07-04] MEDS ORDERED: oxyCODONE/Acetamin 5/325 mg TAB PO PRN (05:45)
[2022-07-04] MEDS ORDERED: HYDROmorphone 0.5 MG/0.5 ML SYRINGE IV SLOW PU PRN ×3 (05:45→07:02)
[2022-07-04 06:01] VITALS: BP 115/76
[2022-07-04] MEDS ORDERED: HYDROmorphone 0.5 MG/0.5 ML SYRINGE IV ONE (06:40)
[2022-07-04] MEDS ORDERED: fentaNYL 100 mcg/2 ml 50 MCG/ML VIAL IV SLOW PU ONE (06:59)
[2022-07-04 08:06] LABS: ABS Basophils 0.1 10^3/ul (0-0.2); ABS Eosinophils 0.4 10^3/ul (0-0.6); ABS Lymphocytes 1.8 10^3/ul (1.0-4.8); ABS Monocytes 0.5 10^3/ul (0-0.8); ABS Neutrophils 4.8 10^3/ul (1.5-7.7); Eosinophil % 5.7 %; Hematocrit 34 % (35-47); Hemoglobin 10.9 g/dL (12.0-16.0); Lymphocyte % 23.7 %; Mean Corpuscular HGB Conc 32 g/dL (31-36); Mean Corpuscular Hemoglobin 28 pg (27-31); Mean Corpuscular Volume 86 fL (80-97); Mean Platelet Volume 6.9 fL (7.4-10.4); Platelet Count 347 10^3/uL (150-450); Red Blood Count 3.92 10^6 /uL (3.70-4.87); Red Cell Distribution Width 15 % (10-15); White Blood Count 7.5 10^3/uL (3.5-10.8)
[2022-07-04 08:39] LABS: Calcium 8.2 mg/dL (8.6-10.3)
[2022-07-04] MEDS ORDERED: CMCS: Vilazodone 40 mg TAB (NF) PO SCH (09:00)
[2022-07-04 10:56] LABS: HIV 4th Generation Nonreactive (Nonreactive)
[2022-07-05] MEDS ORDERED: Vancomycin 1000 MG in NS 0.9% 250 ML IVPB SCH (17:00)
[2022-07-06] MEDS ORDERED: Vancomycin Trough Check NOTE FOLLOW UP ONE (16:30)
== END 2022-07-04 10:05 | disposition left against medical advice (07) | DRG 344 ==
LOC: ED 17:41 → EDHOLD 19:39
PROVIDERS: ADMIT Student in an Organized Health Care Education/Training Program; ATTEND Student in an Organized Health Care Education/Training Program

== ENCOUNTER 2023-09-03 22:44 | Observation (INO) ==
[2023-09-04] MEDS ORDERED: Cefepime 1 GM in Dextrose 1 GM/50 ML BAG IV ONE (00:05)
[2023-09-04] MEDS ORDERED: Vancomycin 1,250 MG in NS 0.9% 250 ml 250 ML IVPB ONE (00:05)
[2023-09-04 00:57] LABS: ABS Basophils 0.1 10^3/uL (0.0-0.1); ABS Eosinophils 0.2 10^3/uL (0.0-0.5); ABS Lymphocytes 1.7 10^3/uL (1.0-4.8); ABS Monocytes 0.8 10^3/uL (0.0-0.9); Eosinophil % 1.9 %; Hematocrit 34.8 % (35-45); Hemoglobin 11.9 g/dL (11.5-14.3); Lymphocyte % 17.1 %; Mean Corpuscular Hemoglobin 25.9 pg (27-33); Mean Corpuscular Hgb Conc 34.3 g/dL (31-36); Mean Corpuscular Volume 75.6 fL (80-97); Mean Platelet Volume 7.1 fL (7.5-11.2); Platelet Count 486 10^3/uL (150-450); Red Cell Distribution Width 17.8 % (12-17); White Blood Count 9.7 10^3/uL (3.8-11.8)
[2023-09-04] MEDS ORDERED: Morphine 4 MG/ML VIAL (1 ml) IV ONE ×2 (01:00→03:50)
[2023-09-04 01:25] LABS: ALT 10 U/L (7-52); Albumin 3.6 g/dL (3.2-5.2); Albumin/Globulin Ratio 0.7 (1-3); Alkaline Phosphatase 124 U/L (35-149); Anion Gap 9 mmol/L (2-16); Blood Urea Nitrogen 29 mg/dL (6-24); CO2 Carbon Dioxide 25 mmol/L (22-32); Calcium 8.7 mg/dL (8.6-10.3); Chloride 98 mmol/L (101-111); Creatinine, Serum 2.61 mg/dL (0.51-0.95); Globulin 5.2 g/dL (2-4); Glucose 108 mg/dL (70-100); Sodium 132 mmol/L (135-145); Total Bilirubin 0.3 mg/dL (0.2-1.0); Total Protein 8.8 g/dL (6.4-8.9); eGFR CKD-EPI 21.3 (>60)
[2023-09-04 02:44] LABS: Potassium Redraw 3.8 mmol/L (3.5-5.0)
[2023-09-04] MEDS ORDERED: Vancomycin per Pharmacy 1 EA NOTE FOLLOW UP SCH (05:00)
[2023-09-04] MEDS ORDERED: Albuterol HFA INHALER 8 gm MDI INH PRN (05:23)
[2023-09-04 06:06] LABS: C Reactive Protein 189.75 mg/L (<8.01)
[2023-09-04 06:07] LABS: Magnesium 2.2 mg/dL (1.9-2.7)
[2023-09-04 06:29] LABS: ABS Eosinophils 0.2 10^3/uL (0.0-0.5); ABS Lymphocytes 1.1 10^3/uL (1.0-4.8); ABS Monocytes 0.7 10^3/uL (0.0-0.9); ABS Neutrophils 7.1 10^3/uL (1.5-7.6); Eosinophil % 2.3 %; Hematocrit 33.7 % (35-45); Hemoglobin 11.1 g/dL (11.5-14.3); Lymphocyte % 11.6 %; Mean Corpuscular Hgb Conc 32.9 g/dL (31-36); Mean Corpuscular Volume 76.1 fL (80-97); Mean Platelet Volume 6.9 fL (7.5-11.2); Platelet Count 394 10^3/uL (150-450); Red Blood Count 4.43 10^6/uL (3.63-4.92); Red Cell Distribution Width 17.5 % (12-17); White Blood Count 9.1 10^3/uL (3.8-11.8)
[2023-09-04 06:48] LABS: Calcium 8.1 mg/dL (8.6-10.3); Creatinine, Serum 2.21 mg/dL (0.51-0.95); Potassium 3.6 mmol/L (3.5-5.0)
[2023-09-04] MEDS ORDERED: HYDROmorphone 1 MG/1 ML SYRINGE IV SLOW PU PRN (09:36)
[2023-09-04] MEDS ORDERED: Vancomycin 1,000 MG in NS 0.9% 250 ml 250 ML IVPB ONE (13:00)
[2023-09-04] MEDS: Cefepime 1 GM in Dextrose 1 GM/50 ML BAG IV SCH (13:43)
[2023-09-04] MEDS ORDERED: NS 0.9% 1000 ml BAG 1,000 ML IV SCH (19:15)
[2023-09-05] MEDS: Cefepime 1 GM in Dextrose 1 GM/50 ML BAG IV SCH ×2 (00:11→16:27)
[2023-09-05] MEDS ORDERED: Acetaminophen IV 1 GM/100ML 1,000 MG/100 ML BAG IV SCH (03:00)
[2023-09-05] MEDS ORDERED: Vancomycin Random Level NOTE FOLLOW UP ONE (06:00)
[2023-09-05] MEDS: HYDROmorphone 1 MG/1 ML SYRINGE IV SLOW PU PRN ×2 (08:49→14:13)
[2023-09-05] MEDS ORDERED: Orphenadrine Citrate INJ 30 mg/ml 2 ml VIAL (60 mg) IV ONE (10:34)
[2023-09-05] MEDS ORDERED: Lidocaine 1% MPF 5 ML VIAL INJ ONE (15:58)
[2023-09-05] MEDS ORDERED: Sulfamethox/Trimethoprim DS TAB 800/160 mg PO ONE (22:00)
[2023-09-05] MEDS: Orphenadrine Citrate INJ 30 mg/ml 2 ml VIAL (60 mg) IM SCH (22:29)
[2023-09-06] MEDS ORDERED: Vancomycin Random Level NOTE FOLLOW UP ONE (09:00)
[2023-09-06] MEDS ORDERED: Polyethylene Glycol 3350 17 GM PACKET PO SCH (09:00)
[2023-09-06] MEDS ORDERED: Cefepime 1 GM in Dextrose 1 GM/50 ML BAG IV SCH (10:00)
[2023-09-06] MEDS ORDERED: Vancomycin 1,250 MG in NS 0.9% 250 ml 250 ML IVPB ONE (12:00)
[2023-09-06] MEDS: Orphenadrine Citrate INJ 30 mg/ml 2 ml VIAL (60 mg) IM SCH (12:05)
[2023-09-06 13:28] VITALS: BP 149/70
[2023-09-07] MEDS ORDERED: Cefepime 1 GM in Dextrose 1 GM/50 ML BAG IV SCH (09:00)
== END 2023-09-06 15:20 | disposition left against medical advice (07) ==
LOC: EDHOLD 22:44 → ED 22:44 → SUATTDRO 09-04 04:33 → SSU 09-04 07:39
PROVIDERS: ADMIT Internal Medicine; ATTEND Internal Medicine

== ENCOUNTER 2024-04-01 22:08 | Inpatient (IN) ==
[2024-04-02] MEDS: ceFAZolin 1 GM ADVAN 1 GM in NS 0.9% 50 ML 50 ML IVPB ONE (00:19)
[2024-04-02 00:41] LABS: ABS Eosinophils 0.1 10^3/uL (0.0-0.5); ABS Lymphocytes 1.3 10^3/uL (1.0-4.8); ABS Monocytes 0.8 10^3/uL (0.0-0.9); ABS Neutrophils 7.5 10^3/uL (1.5-7.6); Eosinophil % 1.4 %; Hematocrit 36.1 % (35-45); Hemoglobin 12.1 g/dL (11.5-14.3); Lymphocyte % 12.9 %; Mean Corpuscular Hemoglobin 24.7 pg (27-33); Mean Corpuscular Hgb Conc 33.5 g/dL (31-36); Mean Corpuscular Volume 73.5 fL (80-97); Mean Platelet Volume 7.4 fL (7.5-11.2); Platelet Count 409 10^3/uL (150-450); Red Blood Count 4.91 10^6/uL (3.63-4.92); Red Cell Distribution Width 19.4 % (12-17); White Blood Count 9.7 10^3/uL (3.8-11.8)
[2024-04-02 01:04] LABS: Albumin 3.6 g/dL (3.2-5.2); Albumin/Globulin Ratio 0.8 (1-3); C Reactive Protein 271.29 mg/L (<8.01); Creatinine, Serum 1.18 mg/dL (0.51-0.95); Globulin 4.4 g/dL (2-4); Potassium 3.9 mmol/L (3.5-5.0); Total Bilirubin 0.5 mg/dL (0.2-1.0); eGFR CKD-EPI 55.2 (>60)
[2024-04-02] MEDS: Morphine 4 MG/ML VIAL (1 ml) IV ONE (01:25)
[2024-04-02] MEDS: Vancomycin 1,000 MG in NS 0.9% 250 ml 250 ML IVPB ONE ×2 (04:37→12:39)
[2024-04-02] MEDS ORDERED: Ondansetron 4 mg VIAL 2 MG/ML 2 ml VIAL IV PRN (04:50)
[2024-04-02] MEDS: Acetaminophen IV 1 GM/100ML 1,000 MG/100 ML BAG IV SCH (06:00)
[2024-04-02] MEDS ORDERED: Enoxaparin 40 MG/0.4 ML SYR SUBCUT SCH (06:00)
[2024-04-02] MEDS: Lactated Ringers 1000 ml BAG 1,000 ML IV SCH (06:16)
[2024-04-02] MEDS ORDERED: Morphine 2 MG/ML SYRINGE IV PRN (06:26)
[2024-04-02] MEDS: Enoxaparin 40 MG/0.4 ML SYR SUBCUT SCH ×2 (06:59→11:38)
[2024-04-02] MEDS: HYDROmorphone 1 MG/1 ML SYRINGE IV ONE ×2 (08:43)
[2024-04-02 09:00] LABS: Albumin/Globulin Ratio 0.7 (1-3); Calcium 8.5 mg/dL (8.6-10.3); Creatinine, Serum 1.18 mg/dL (0.51-0.95); Globulin 4.1 g/dL (2-4); Magnesium 1.9 mg/dL (1.9-2.7); Potassium 3.6 mmol/L (3.5-5.0); Total Bilirubin 0.4 mg/dL (0.2-1.0); Total Protein 7.1 g/dL (6.4-8.9); eGFR CKD-EPI 55.2 (>60)
[2024-04-02 09:15] LABS: Anisocytosis 1+; Hematocrit 31.2 % (35-45); Hemoglobin 10.4 g/dL (11.5-14.3); Mean Corpuscular Hemoglobin 24.5 pg (27-33); Mean Corpuscular Hgb Conc 33.2 g/dL (31-36); Mean Platelet Volume 7.6 fL (7.5-11.2); Microcytosis 2+; Platelet Count 368 10^3/uL (150-450); Polychromasia 1+; Red Blood Count 4.22 10^6/uL (3.63-4.92); Red Cell Distribution Width 19.1 % (12-17)
[2024-04-02 09:17] LABS: ABS Basophils 0.1 10^3/uL (0.0-0.1); ABS Eosinophils 0.4 10^3/uL (0.0-0.5); ABS Lymphocytes 3.2 10^3/uL (1.0-4.8); ABS Monocytes 1.3 10^3/uL (0.0-0.9); ABS Neutrophils 18.4 10^3/uL (1.5-7.6); ABS Nucleated RBC 0.01 10^3/ul; Eosinophil % 1.8 %; Lymphocyte % 13.8 %; White Blood Count 23.4 10^3/uL (3.8-11.8)
[2024-04-02 10:28] LABS: Osmolality Serum 290 mOsm/kg (275-295)
[2024-04-02] MEDS: Cefepime 1 GM in Dextrose 1 GM/50 ML BAG IV SCH (11:36)
[2024-04-02 13:07] LABS: Urine Appearance Clear; Urine Bilirubin Negative (Negative); Urine Blood Negative (Negative); Urine Color Light-Yellow; Urine Glucose Negative (Negative); Urine Ketones Negative (Negative); Urine Nitrite Negative (Negative); Urine Protein Negative (Negative); Urine Specific Gravity 1.008 (1.002-1.030); Urine Urobilinogen Negative (Negative)
[2024-04-02 13:22] LABS: Urine Osmo 236 mOsm/kg (150-1150)
[2024-04-02] MEDS ORDERED: cefTRIAXone 1 gm/50 mL D5W 1 GM/50 ML BAG IV SCH (23:00)
[2024-04-03] MEDS ORDERED: Vancomycin per Pharmacy 1 EA NOTE FOLLOW UP PRN (10:00)
[2024-04-03] MEDS: HYDROmorphone 1 MG/1 ML SYRINGE IV PRN (11:12)
[2024-04-03] MEDS: Vancomycin 1,250 MG in NS 0.9% 250 ml 250 ML IVPB ONE (11:21)
[2024-04-04 10:59] LABS: ABS Eosinophils 0.2 10^3/uL (0.0-0.5); ABS Lymphocytes 1.2 10^3/uL (1.0-4.8); ABS Monocytes 0.4 10^3/uL (0.0-0.9); ABS Neutrophils 4.9 10^3/uL (1.5-7.6); Eosinophil % 2.7 %; Hematocrit 31.4 % (35-45); Hemoglobin 10.6 g/dL (11.5-14.3); Mean Corpuscular Hemoglobin 24.9 pg (27-33); Mean Corpuscular Hgb Conc 33.7 g/dL (31-36); Mean Corpuscular Volume 73.7 fL (80-97); Platelet Count 522 10^3/uL (150-450); Red Blood Count 4.26 10^6/uL (3.63-4.92); Red Cell Distribution Width 19.1 % (12-17); White Blood Count 6.8 10^3/uL (3.8-11.8)
[2024-04-04 11:06] LABS: Creatinine, Serum 1.16 mg/dL (0.51-0.95); Potassium 3.4 mmol/L (3.5-5.0); eGFR CKD-EPI 56.4 (>60)
[2024-04-04] MEDS: Vancomycin Trough Check NOTE FOLLOW UP ONE (12:26)
[2024-04-04] MEDS: Vancomycin 1,250 MG in NS 0.9% 250 ml 250 ML IVPB SCH (12:43)
[2024-04-04] MEDS ORDERED: Lorazepam PYXIS KEY PRN (18:14)
[2024-04-04] MEDS: Potassium Chlor 20 meq TAB.ER PO ONE (19:12)
[2024-04-04] MEDS: LORazepam 2 mg VIAL 1 ml IV PUSH ONE (21:07)
[2024-04-04] MEDS: Senna TAB 8.6 mg TAB PO SCH (22:47)
[2024-04-04] MEDS: Polyethylene Glycol 3350 17 GM PACKET PO SCH (22:47)
[2024-04-05 10:51] VITALS: BP 124/68
[2024-04-05] MEDS: methylPREDNISolone SOD SUCC 40 mg/ml 1 ml VIAL IV SCH (10:53)
[2024-04-07] MEDS ORDERED: Vancomycin Trough Check NOTE FOLLOW UP ONE (10:30)
== END 2024-04-05 13:40 | disposition home or self-care (01) | DRG 383 ==
LOC: ED 22:08 → EDHOLD 04-02 03:03 → SUATTDRO 04-02 03:03 → MED 04-02 17:28
PROVIDERS: ADMIT Internal Medicine; ATTEND Internal Medicine